=== PATIENT | female | born 1940 | race Caucasian/White ===

== ENCOUNTER 2019-06-15 12:21 | Inpatient (IN) | payer MEDICARE, OTHER, BC, SELFPAY ==
[2019-06-15] VITALS (14 sets, daily range): BP systolic 122–166; BP diastolic 59–82; PULSE 76–92; RESP 16–21; TEMP 36.6–36.8; O2SAT 93–98; BMI 23.6; BMI 22.2; BMI 22.3
--- NOTE | 2019-06-15 12:36 | RAD_ITS ---
STUDY: X-RAY CHEST REASON FOR EXAM: Female, 79 years old. RIGHT ARM WEAKNESS TECHNIQUE: AP COMPARISON: None. FINDINGS: EKG leads project over the chest. The lungs are clear and expanded. There is no demonstrated pleural abnormality. Normal size heart. Normal mediastinum and gwendolyn. Normal visualized pulmonary arteries. There is atherosclerotic calcification of the aortic arch with tortuosity. No acute bony process. There is no demonstrated abnormality of the visualized soft tissue structures of the upper abdomen. RAD/Chest 1 View IMPRESSION: Nonacute portable x-ray examination of the chest. Electronically Signed: Petr Jones MD (Brooks) at 13:58 EST , Service support ,
--- NOTE | 2019-06-15 12:36 | CT_ITS ---
STUDY: CT BRAIN WITHOUT CONTRAST REASON FOR EXAM: Female, 79 years old. Right hand numbness/tingling, right facial droop, hx migraines. RADIATION DOSAGE (If Supplied By Facility): CTDIvol = ( 44.99 ) mGy, DLP = ( 745.49 ) mGycm TECHNIQUE: Transaxial CT imaging of the brain was performed without administration of intravenous contrast material. Individualized dose optimization techniques were used for this CT. COMPARISON: No relevant priors. FINDINGS: Normal soft tissue structures. Normal calvarium. There is moderate cerebral atrophy with widening of the extra-axial spaces and ventricular dilatation. There are areas of decreased attenuation within the white matter tracts of the supratentorial brain, consistent with microvascular disease changes. There is low attenuation within the left greater than right anterior limb of the internal capsules and external capsules compatible chronic ischemic change. Normal brainstem. There is mild cerebellar atrophy. There is a septum cavum pellucida variant demonstrated. There is no intracranial hemorrhage. There are no findings of an acute ischemic infarction. Normal visualized paranasal sinuses. CT/Brain/Head without Contrast IMPRESSION: Atrophy areas of chronic involutional changes especially the basal ganglia. Could consider further evaluation with MRI if clinically appropriate. Electronically Signed: Vonda Dey MD at 13:49 EST Tel , Service support ,
--- NOTE | 2019-06-15 12:36 | EKG12_ITS ---
Test Reason : NEURO S/SX Blood Pressure : / mmHG Vent. Rate : 080 BPM Atrial Rate : 080 BPM P-R Int : 134 ms QRS Dur : 084 ms QT Int : 364 ms P-R-T Axes : 056 012 060 degrees QTc Int : 419 ms Normal sinus rhythm Nonspecific ST abnormality Abnormal ECG Confirmed by MARGARET BARILLAS, MARILYN ([id number]), news copy editor ANDREINA SHARMA ([id number]) on 06/18/2019 1:34:53 PM Referred By: GREG Confirmed By:MARILYN ROBLES MD
--- NOTE | 2019-06-15 12:40 | ED.DCSUM_ITS ---
History of Present Illness Chief Complaint: Numb/Ting Narrative: Patient presents the emergency department concern for stroke. Patient went to bed last night and believes she fell asleep around 1030 or 11:00. She was watching television in her room and is unsure of exactly when she fell asleep. When she woke up this morning around 6 she came down the stairs was in the kitchen and she noticed that her right hand had decreased sensation and was unable to grasp things. She states that she had difficulty walking as well. She notes that the weakness was not confined to just the hand but also extended up onto the arm. She notes she could not hold a coffee cup. Later in the morning she could not get herself ready after her shower with her arm. She called family around 830 and agreed to go to urgent care. She was referred here. She states that she is feeling much better now and the strength and sensation is back. He states that she is never had any symptoms like this before. She used to get some neurologic symptoms with migraines but has not had a migraine for years and currently does not have headache. Past Medical History - Allergies and Home Meds Allergies/Adverse Reactions: Allergies No Known Allergies Allergy (Verified 02/20/15 16:48) Primary Care Physician: [facility] Doctor,Out of [NON-STAFF] - Smoking Status: Never smoker Review of Systems General: Denies: Chills, Fever, Sweats Eyes: Denies: Visual changes - bilaterally, Diplopia ENT: Denies: Rhinorrhea, Sore throat Cardiovascular: Denies: Chest pain, Palpitations Respiratory: Denies: Dyspnea, Cough, Dyspnea on exertion Gastrointestinal: Denies: Abdominal pain, Nausea, Vomiting, Diarrhea, Melena, Hematochezia Genitourinary: Denies: Dysuria, Hematuria, Frequency Musculoskeletal: Denies: Back pain, Extremity Pain Skin: Denies: Rash, Wounds Neurological: Reports: Weakness, Parasthesia, Numbness. Denies: Headache Physical Exam Vital Signs/Narrative: Vital Signs Temp Pulse Resp BP Pulse Ox 06/15/19 12:23 98.1 F 84 18 166/82 H 98 Inital Vital Signs reviewed: Yes General: Well nourished, Well developed, No Acute Distress Head: Normocephalic, Atraumatic Eyes: Perrl, EOMI ENT: Moist mucous membranes, No rhinorrhea Neck: Supple, Nontender Cardiovascular: Regular rate, Regular rhythm, No murmurs Respiratory: No distress, CTA bilaterally, Chest nontender Abdomen: Soft, Nontender, Nondistended, Normal bowel sounds Back: Nontender, Normal Inspection Extremities: Nontender, No edema Skin: Normal color, No rash Neurological: Alert, Oriented x3, Cranial nerves II-XII grossly intact, Normal Strength, Normal Sensation, Normal Gait, - - NIH 0. Negative for: Weakness Psychological: Normal affect, Normal Mood Diagnostic/Tx/Re-eval - Rhythm Strip Rhythm Strip: Sinus Rhythm Rate: 80 - Medical Decision Making Basic labs were negative. Head CT shows no acute pathology. Chest x-ray negative. EKG is a normal sinus rhythm. Patient remains neurologically intact. Her NIH continues to be 0. At this point this most likely a TIA. However symptom onset is difficult to establish but we know that she had symptoms for several hours. ED Disposition - Plan for ED Patient: Disposition: Acute Care Hospital [facility] Diagnosis: TIA (transient ischemic attack) Referrals: [facility] Doctor,Out of [NON-STAFF] -
[2019-06-15 12:50] LABS: Absolute Lymphocyte Count 1.96 X10^3/uL (0.83-4.51); Absolute Neutrophil Count 4.2 X10^3/uL (2.0-7.7); Basophil# 0.06 X10^3/uL; Basophil% 0.9 % (0-1); Eosinophil# 0.03 X10^3/uL; Eosinophils% 0.4 % (0-5); Hematocrit 41.9 % (37-47); Hemoglobin 13.8 g/dL (12.0-15.0); Lymphocyte # 1.96 X10^3/ul (4.0); Lymphocyte % 28.2 % (19-41); Mean Corp Hgb Conc 32.9 g/dL (32-36); Mean Corpuscular Hgb 30.6 pg (27.0-32.0); Mean Corpuscular Volume 92.9 fL (81-99); Mean Platelet Vol. 11.5 fl (6.2-12.0); Monocyte# 0.66 X10^3/uL; Monocyte% 9.5 % (0-10); NRBC Flagged by Analyzer 0 % (0-5); Neutrophil # 4.23 X10^3/uL (2.7-7.7); Neutrophil % 60.7 % (47-70); Platelet Count 158 K/mm3 (150-450); RBC Distribution Width CV 12.8 % (11.6-14.6); RBC Distribution Width SD 43.8 fl (35.1-43.9); Red Blood Count 4.51 M/mm3 (4.2-5.4)
[2019-06-15 12:51] LABS: Bedside Glucose 96 mg/dL (70-110)
[2019-06-15 12:55] LABS: Prothrombin Time (Protime)PT. 12.7 SECONDS (11.7-14.9)
[2019-06-15 12:56] LABS: Partial Thromboplast Time 31.3 Seconds (24.1-36.2)
[2019-06-15 13:04] LABS: Anion Gap 4 (5-15); BUN 18 mg/dL (7-18); Calcium,Total 9.9 mg/dL (8.5-10.1); Chloride 105 mmol/L (98-107); Creatinine, Serum 0.95 mg/dL (0.55-1.02); EST Glomerular Filtration Rate 60 mL/min (>60); Est Glom Filt Rate - Afr Amer 73 mL/min (>60); Estimated Creatinine Clearance 35.05 ml/min; Glucose 87 mg/dL (74-106); Potassium 3.6 mmol/L (3.5-5.1); Sodium Level 140 mmol/L (136-145)
--- NOTE | 2019-06-15 14:36 | HP.PCM_ITS ---
<Travon Calix - Last Filed: 06/15/19 14:36> Problem List (1) CVA (cerebral vascular accident) Status: Acute (2) Depression Status: Chronic (3) Osteopenia Status: Chronic History of Present Illness Date of Admission: 06/15/19 Chief Complaint: right handed weakness/numbness The patient is a 79 year old F with pmhx of deperssion and osteopenia who presented to the ER with c/o right handed weakness. She woke up feeling normal at about 0600. At about 0800 she noticed that her right hand felt numb and weak. She was having trouble picking anything up in her right hand. She had some numbness and tingling. She denies difficulty ambulating, arm or leg weakness, denies slurred speech or facial droop. She went to urgent care but felt woozy walking in and instead came to the ER. Daughter noted that her gait seemed fine. She came to the ER and her symptoms have somewhat resolved although she says her fingertips still feel numb/tingling. She has no MERCHANT/dizziness/LH. She has no hx TIA/Stroke. 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 Lives: Alone Smoking Status: Never smoker Tobacco Use: Non-smoker Alcohol: None Drugs: None - *Family History Maternal History Items: Cancer - breast, colon Paternal History Items: No pertinent history - denies cad, cancer, DM, stroke Review of Systems Constitutional: Denies: Chills, Fever, Weight Change HEENT: Denies: Head Aches, Sinus Congestion, Sinus Drainage Cardiovascular: Denies: Chest Pain, Palpitations Respiratory: Denies: Cough, Shortness of breath at rest, Sputum production Gastrointestinal: Denies: Abdominal Pain, Nausea, Vomiting Genitourinary: Denies: Dysuria Musculoskeletal: Denies: Joint Pain, Joint Tenderness Skin: Denies: Rash, Wounds Neurological: Reports: Focal weakness, Numbness, Tingling. Denies: Balance problems, Double vision, Change in Speech, Slurred speech, Confusion, Headaches, Incoordination Psychiatric: Denies: Anxiety, Depression, Homicidal Ideations, Suicidal Ideations Hematologic/ Lymphatic: Denies: Easy Bruising, Easy Bleeding VTE Information - Inpt Only VTE Present on Admission: No VTE Mechan Device Prophylaxis: None VTE Pharm Prophylaxis ordered?: Yes Patient Problems: Active and Suspected Problems TIA (transient ischemic attack) (Acute) CVA (cerebral vascular accident) (Acute) - Physical Exam Vitals/I&O's: Vital Signs Temp Pulse Resp BP Pulse Ox 98.1 F 92 19 H 155/81 H 96 06/15/19 12:23 06/15/19 14:13 06/15/19 14:13 06/15/19 14:13 06/15/19 14:13 Oxygen Delivery Method Room Air Weight: 125 lb 0.034 oz Body Mass Index (BMI) 23.6 Finger Stick Blood Glucose 96 General: Alert, Oriented x3, Cooperative HEENT: Atraumatic, PERRLA, EOMI, Normocephalic Neck: Supple, No JVD, Negative Carotid Bruits Lungs: Clear to auscultation, Normal air movement Cardiovascular: Regular rate, No murmurs Abdomen: Bowel Sounds Present, Soft, Non Tender Extremities: No edema, Capillary Refill Less than 3 Seconds Skin: No rashes, No breakdown Musculoskeletal: No Tenderness to Palpation of Joints or Extremities Neurological: Cranial nerves II-XII grossly intact, - - Injection Molding Technician strength in the rigth hand is slightly diminished vs the left hand. normal pronator drift, point to point intact, rapid alternating movements intact, finger strength intact, graphesthesia intact, finger sensation intact. Psych/Mental Status: Normal Affect, Appropriate, Alert and oriented to time, place, person, mood and affect Laboratory Results 06/15/19 12:24: POC Glucose 96 06/15/19 12:25: WBC 7.0, RBC 4.51, Hgb 13.8, Hct 41.9, MCV 92.9, MCH 30.6, MCHC 32.9, RDW Std Deviation 43.8, RDW Coeff of Beto 12.8, Plt Count 158, MPV 11.5, Immature Gran % (Auto) 0.300, Neut % (Auto) 60.7, Lymph % (Auto) 28.2, [place] % (Auto) 9.5, Eos % (Auto) 0.4, Baso % (Auto) 0.9, Absolute Neuts (auto) 4.2, Absolute Lymphs (auto) 1.96, Nucleated RBC % 0 06/15/19 12:25: PT 12.7, INR 1.0, APTT 31.3 06/15/19 12:25: Sodium 140, Potassium 3.6, Chloride 105, Carbon Dioxide 31.0, Anion Gap 4 L, BUN 18, Creatinine 0.95, Estim Creat Clear Calc 35.05, Est GFR (MDRD) Af Amer 73, Est GFR (MDRD) Non-Af 60, BUN/Creatinine Ratio 19.0, Glucose 87, Calcium 9.9, Troponin I < 0.015 Assessment/Plan All Active Problems TIA (transient ischemic attack) (Acute) CVA (cerebral vascular accident) (Acute) 1. CVA - CT with age related changes. Onset about 0800. Start asa/statin. Obtain echo, MRI brain, MRA head/neck. Check FLP. Maintain on tele. PTOTST eavls. 2. HTN - permissive. not previously dx with htn. 3. Depression - continue home meds 4. Osteopenia - alendronate qweek DVT ppx: lovenox This patient was seen by Travon Calix PA-C under the supervision of Doctor Katherine. <Katherine,Hibbs - Last Filed: 06/15/19 15:51> History of Present Illness The patient is a 79 year old F [] Past Medical History Allergies No Known Allergies Allergy (Verified 02/20/15 16:48) - Physical Exam Vitals/I&O's: Vital Signs Temp Pulse Resp BP Pulse Ox 98 F 77 18 150/77 H 98 06/15/19 15:05 06/15/19 15:05 06/15/19 15:05 06/15/19 15:05 06/15/19 15:05 Oxygen Delivery Method Room Air Weight: 53.5 kg Body Mass Index (BMI) 22.2 Finger Stick Blood Glucose 96 Laboratory Results 06/15/19 12:24: POC Glucose 96 06/15/19 12:25: WBC 7.0, RBC 4.51, Hgb 13.8, Hct 41.9, MCV 92.9, MCH 30.6, MCHC 32.9, RDW Std Deviation 43.8, RDW Coeff of Beto 12.8, Plt Count 158, MPV 11.5, Immature Gran % (Auto) 0.300, Neut % (Auto) 60.7, Lymph % (Auto) 28.2, [place] % (Auto) 9.5, Eos % (Auto) 0.4, Baso % (Auto) 0.9, Absolute Neuts (auto) 4.2, Absolute Lymphs (auto) 1.96, Nucleated RBC % 0 06/15/19 12:25: PT 12.7, INR 1.0, APTT 31.3 06/15/19 12:25: Sodium 140, Potassium 3.6, Chloride 105, Carbon Dioxide 31.0, Anion Gap 4 L, BUN 18, Creatinine 0.95, Estim Creat Clear Calc 35.05, Est GFR (MDRD) Af Amer 73, Est GFR (MDRD) Non-Af 60, BUN/Creatinine Ratio 19.0, Glucose 87, Calcium 9.9, Troponin I < 0.015 Current Medications Acetaminophen (Tylenol) 650 mg PO Q6H PRN PRN PRN Reason: Pain Score 1-3/Temp > 100.7 F Aspirin (Aspirin, Baby) 81 mg PO DAILY@0800 [facility] Atorvastatin Calcium (Lipitor) 40 mg PO QHS [facility] Enoxaparin Sodium (Lovenox) 40 mg SC DAILY [facility] Famotidine (Pepcid) 20 mg PO DAILY [facility] Sodium Chloride () 1,000 mls @ 75 mls/hr IV .[id number] [facility] Stop: 06/16/19 04:14 Sodium Chloride () 250 mls @ 15 mls/hr IV .[id number] PRN PRN Reason: Saline Flush Sodium Chloride () 250 mls @ 15 mls/hr IV .[id number] PRN PRN Reason: Additional IVPB Infusion Magnesium Hydroxide (Milk Of Magnesia) 30 ml PO DAILY PRN PRN PRN Reason: Constipation Ondansetron HCl (Zofran) 4 mg IV Q8H PRN PRN PRN Reason: NAUSEA/VOMITING Sodium Chloride () 10 - 40 ml IV UD PRN PRN Reason: SALINE FLUSH Trazodone HCl (Desyrel) 50 mg PO QHS [facility] Venlafaxine HCl (Effexor Xr) 150 mg PO DAILY JAMIE Assessment/Plan This patient was seen in conjunction with KEVIN Washburn. I have independently interviewed and examined the patient and reviewed pertinent historical, laboratory, and other data. Please refer to KEVIN Washburn note for his patient's presentation, findings, and recommendations. I have reviewed and his note and concur with his documentation CC: Right-sided numbness and tingling especially RUE HPI: 79-year-old with past medical history of depression who comes in with complaints of right-sided numbness and tingling facial and upper extremity. Patient woke up around 6:00 and around 8:00 noticed weakness in the right side of the body. She was unable to use her right hand to prepare very fast. She called her daughter and was sent to urgent care and subsequently sent here. Initial CT scan showed chronic involutional changes. Symptoms appear to have resolved since patient got here to the emergency department. NIHSS score was 0 PMHX: Depression, osteoporosis PSHx: History of right ankle repair, tubal ligation FHX: Breast CA as well as colon CA in mother SHX: Denies any use of alcohol, non-smoker, denies any use of drugs Physical Exam: Vitals: Patient 98.1F, heart rate 84, blood pressure 136/82, SPO2 18, SPO2 was 90% on room air Gen: Comfortable, not pale, not jaundiced CVS:HS I +II, regular, no murmurs RESP: Clinically clear to auscultation GI: BS present and normal, soft, nontender, no palpable organs EXT:No edema Labs: CBCD and BMP is essentially unremarkable. Admitting chest x-ray is unremarkable ASSESSMENT: 1. TIA 2. Depression 3. Osteoporosis Plan: Admit to PCU, TIA/CVA protocol MRI/MRA head, MRA neck HbA1c, lipid profile, 2D echo Consider telemetry neurology consult if MRI of the brain is positive for acute CVA Code Visit Inpatient E&M: 38439 Init Hosp L3
--- NOTE | 2019-06-15 14:55 | ECHOD_ITS ---
Reason For Study: TIA/CVA Procedure This was a 2D Doppler, Color Flow transthoracic echocardiogram. Exam performed portable in patient room. Left Ventricle Normal LV size. Left ventricular systolic function is normal. The estimated ejection fraction is 60 %. Stage 1 diastolic dysfunction. No regional wall motion abnormalities noted. Right Ventricle Normal RV size. Normal systolic function. Atria Normal left atrium. Normal right atrium. Patent foramen ovale. Mitral Valve Normal mitral valve. Mild (1+) eccentric mitral valve insufficiency. Tricuspid Valve Normal tricuspid valve. Mild tricuspid valve insufficiency. Aortic Valve Normal aortic valve. Trisinus/trileaflet aortic valve. Mild (1+) aortic valve insufficiency. Pulmonic Valve Normal pulmonic valve. Great Vessels Normal aortic root. The pulmonary artery is normal size. Normal inferior vena cava. Pericardium/Pleural No pericardial effusion. Medication Performed a rapid injection of agitated mix of 9 cc saline and 1cc air to assess for atrial septal defect. MMode/2D Measurements & Calculations LVIDd: 3.7 cm IVSd: 0.97 cm Ao root diam: 3.5 cm LVIDs: 2.4 cm LVPWd: 1.1 cm RVDd: 3.0 cm FS: 35.5 % LAV(MOD-bp): 23.9 ml LA A4 area: 10.0 cm2 LA dimension(2D): 2.9 cm LAV(MOD-bp) Indexed: 15.7 ml/m2 LAV(MOD-sp2): 24.8 ml LAV(MOD-sp4): 20.7 ml RA A4 area: 9.3 cm2 Time Measurements MV dec time: 0.15 sec Doppler Measurements & Calculations MV E max nii: 45.8 cm/sec Lat Peak E' Nii: 4.3 cm/sec Med Peak E' Nii: 2.8 cm/sec MV A max nii: 100.2 cm/sec E/E' lat: 10.8 E/E' med: 16.1 MV E/A: 0.46 Ao V2 max: 107.6 cm/sec AI max nii: 443.2 cm/sec LV V1 max: 75.7 cm/sec Ao max P.6 mmHg AI max P.7 mmHg LV V1 max P.3 mmHg AI dec slope: 288.9 cm/sec2 AI P1/2t: 449.3 msec PA V2 max: 82.2 cm/sec TR max nii: 223.1 cm/sec TR max P.9 mmHg Interpretation Summary Normal LV size. Left ventricular systolic function is normal. The estimated ejection fraction is 60 %. Stage 1 diastolic dysfunction. Patent foramen ovale. Mild (1+) aortic valve insufficiency. Ordering Physician: Shirley Murphy Referring Physician: Chester Thayer Performed By: Carey Gonzalez, JOSSELINECS, RVT
[2019-06-15] MEDS: 0.9% Normal Saline 1,000 ML 75 ML IV (16:26)
[2019-06-15] MEDS: 0.9% Saline Lock 10 ML Syringe IV (16:32)
[2019-06-15 16:39] LABS: Hemoglobin A1c 5.5 % (4.2-6.3)
[2019-06-15] MEDS: Famotidine 20 MG Tablet PO (16:49)
[2019-06-16] VITALS (9 sets, daily range): BP systolic 129–135; BP diastolic 51–77; PULSE 79–96; RESP 16–17; TEMP 36.6–37.2; O2SAT 96–97; BMI 22.2
[2019-06-16 06:21] LABS: Absolute Lymphocyte Count 1.74 X10^3/uL (0.83-4.51); Absolute Neutrophil Count 3.2 X10^3/uL (2.0-7.7); Basophil# 0.05 X10^3/uL; Basophil% 0.9 % (0-1); Eosinophil# 0.12 X10^3/uL; Eosinophils% 2.1 % (0-5); Hematocrit 38.4 % (37-47); Hemoglobin 12.9 g/dL (12.0-15.0); Lymphocyte # 1.74 X10^3/ul (4.0); Lymphocyte % 31.1 % (19-41); Mean Corp Hgb Conc 33.6 g/dL (32-36); Mean Corpuscular Hgb 30.6 pg (27.0-32.0); Mean Corpuscular Volume 91.2 fL (81-99); Mean Platelet Vol. 11.2 fl (6.2-12.0); Monocyte# 0.52 X10^3/uL; Monocyte% 9.3 % (0-10); NRBC Flagged by Analyzer 0 % (0-5); Neutrophil # 3.15 X10^3/uL (2.7-7.7); Neutrophil % 56.4 % (47-70); Platelet Count 180 K/mm3 (150-450); RBC Distribution Width CV 12.8 % (11.6-14.6); RBC Distribution Width SD 42.2 fl (35.1-43.9); Red Blood Count 4.21 M/mm3 (4.2-5.4); White Blood Count 5.6 K/mm3 (4.4-11.0)
[2019-06-16 06:54] LABS: AST(SGOT) 18 U/L (15-37); Alanine Aminotransfer ALT/SGPT 20 U/L (13-56); Albumin, Serum 3.1 g/dL (3.2-5.0); Alkaline Phosphatase 62 U/L (45-117); Anion Gap 3 (5-15); BUN 16 mg/dL (7-18); BUN/Creat Ratio 20.1 RATIO (10-20); Calcium,Total 8.8 mg/dL (8.5-10.1); Chloride 112 mmol/L (98-107); Cholesterol 190 mg/dL (200); EST Glomerular Filtration Rate 74 mL/min (>60); Est Glom Filt Rate - Afr Amer 89 mL/min (>60); Estimated Creatinine Clearance 41.62 ml/min; Globulin 3.1 g/dL (2.2-4.2); Glucose 88 mg/dL (74-106); High Density Lipoprotein 65 mg/dL; Potassium 3.8 mmol/L (3.5-5.1); Protein, Total 6.2 g/dL (6.4-8.2); Sodium Level 141 mmol/L (136-145); Triglycerides 69 mg/dL; Very Low Density Lipoprotein 14 mg/dL (5-40)
--- NOTE | 2019-06-16 08:00 | MRI_ITS ---
STUDY: MRA NECK WITH AND WITHOUT CONTRAST REASON FOR EXAM: Female, 79 years old. tis, rt hand weakness/numbness TECHNIQUE: 3-D [id number]-[id number] (TOF) imaging was performed in an 1.5 T MRI scanner. IV Dotarem 11ml was administered for the contrast enhanced images. COMPARISON: None. FINDINGS: RIGHT CAROTID ARTERIES: Normal right common carotid artery (CCA). Normal right common carotid bulb. Normal origin of the right internal carotid (ICA) artery without a hemodynamically significant stenosis. Normal visualized cervical portion of the right internal carotid artery. Normal origin of the right external carotid artery (ECA). LEFT CAROTID ARTERIES: Normal left common carotid artery (CCA). Normal left common carotid bulb. Normal origin of the left internal carotid (ICA) artery without a hemodynamically significant stenosis. There is tortuous elongation of the cervical portion of the left internal carotid artery without apparent stenosis. Normal origin of the left external carotid artery (ECA). VERTEBRAL ARTERIES: Normal antegrade flow within the bilateral vertebral artery without a hemodynamically significant stenosis. MRI/MRA Neck WITH and W/O Contrast IMPRESSION: Left internal carotid artery is tortuous. Otherwise, normal bilateral cervical carotid and vertebral arteries. Electronically Signed: Cathi Fernandez, at 16:28 EST Tel , Service support ,
--- NOTE | 2019-06-16 08:00 | MRI_ITS ---
We are attempting to reach an attending provider to discuss findings. An addendum with communication details will be sent when the communication is complete. STUDY: MRI BRAIN WITHOUT CONTRAST REASON FOR EXAM: Female, 79 years old. tia, right hand weakness/numbness TECHNIQUE: Standardized multiplanar fat and water weighted pulse sequences were obtained. COMPARISON: None. FINDINGS: There are 2 adjacent foci of restricted diffusion in the left parietal lobe subcortical white matter measuring 2 to 3 mm. There is no large territory vascular infarct. There is moderate cerebral atrophy with widening of the extra-axial spaces and ventricular dilatation. There are multiple white matter hyperintensities, distributed throughout the deep white matter tracts of the cerebral hemispheres, consistent with moderate chronic white matter ischemic changes. Normal T2* images of the brain without demonstrated susceptibility artifact. There is no demonstrated hemosiderin stain. Normal bilateral basal ganglia. Normal thalami. There is no extra-axial fluid accumulation. Normal flow voids within the major intracranial circulation suggesting patency by spin echo criteria. Normal sella turcica, pituitary gland, infundibular stalk, optic chiasm and hypothalamus. Normal tectal plate and pineal gland. Normal midbrain, caludia and medulla. Normal cerebellum. Normal basal cisterns. Normal bilateral temporal bones. Normal bilateral internal auditory canals. No demonstrated orbital abnormality, within the constraints of a routine brain study. Normal visualized paranasal sinuses. Normal calvarium and skull base. Normal visualized soft tissue structures. Normal visualized upper cervical spine. MRI/Brain without Contrast IMPRESSION: 2 adjacent foci of acute infarct in the left parietal lobe subcortical white matter measuring 2 to 3 mm. There is no large territory vascular infarct. Chronic findings as described above. Electronically Signed: Cathi Fernandez, at 11:54 EST Tel , Service support ,
--- NOTE | 2019-06-16 08:00 | MRI_ITS ---
STUDY: MRA OF THE HEAD WITHOUT CONTRAST REASON FOR EXAM: Female, 79 years old. tia, rt hand numbness/weakness TECHNIQUE: 3-D vwtz-mz-sgzivf (TOF) imaging was performed with MIPs. The study was performed unenhanced. COMPARISON: None. FINDINGS: Normal bilateral petrous carotid arteries. Normal right cavernous carotid artery with a normal supraclinoid bifurcation. Normal left cavernous carotid artery with a normal supraclinoid bifurcation. Normal right A1 segments of the anterior cerebral artery. Normal left A1 segments of the anterior cerebral artery. Normal intact anterior communicating artery (ACOM). Normal bilateral A2 segments of the anterior cerebral arteries. Normal right M1 and M2 segments of the middle cerebral arteries, with a normal M1 bifurcation. Normal left M1 and M2 segments of the middle cerebral arteries, with a normal M1 bifurcation. 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 There is a persistent origin of the left posterior cerebral artery with absence of the P1 segment of the left posterior cerebral artery. Normal bilateral vertebral arteries. Normal basilar artery with a normal basilar bifurcation. The visualized bilateral superior cerebellar (SCA) arteries are normal. Normal bilateral visualized P3 segments of the posterior cerebral arteries. There is no demonstrated aneurysm of the [place]. There is no major vessel occlusion or hemodynamically significant stenosis. There is no demonstrated abnormality of the visualized brain. MRI/MRA Head ONLY without Contrast IMPRESSION: Normal MRA of the head Electronically Signed: Cathi Fernandez, at 16:22 EST Tel , Service support ,
[2019-06-16] MEDS: Venlafaxine XR 150 MG Capsule PO (09:54)
[2019-06-16] MEDS: Aspirin 81 MG TAB.CHEW PO (09:54)
[2019-06-16] MEDS: Famotidine 20 MG Tablet PO (09:54)
[2019-06-16] MEDS: Enoxaparin 40 MG/0.4 ML Syringe SC (09:56)
--- NOTE | 2019-06-16 10:33 | CASEMGMT ---
RN CM Assessment Introduced role of RN CM to patient and patient Dtr at bedside. (Dtr Trevin is at bedside-Per Dtr Tracy whom was entering room as CM exited and introduced self).? Patient is alert, oriented and able?to participate in RN CM Assessment. ?Care providers, pharmacy, and demographics verified. Presentation: Rt handed weakness Admit Dx: Tia/CVA Re-Admit: No Barriers/Issues: None, has 3 living Dtrs, 1 Dtr this past August- per Dtr Tracy. Good support system. PCP: Chester Thayer Specialists: None Preferred Pharmacy: [facility] Insurance: [employer], [employer] Rx Benefit:?Yes ?LNOK: Dtr Tracy José Miguelclementerobbi LW/HPOA: States has both, made aware not on file at [facility] and if brought in will place a copy on file. HPOA- Dtr Luz Abebejuan Living Arrangements:? Lives alone in a 2SH, 15 steps to enter home, Bedroom on upper level. ADL?s: Independent with ambulation and ADLs Transportation: Drives self, denies any transportation issues. DME: None HHC: None SNF: None Goal: Home and patient does not think will have any needs, states that she has been up walking and denies feeling weak or difficulties. Denies any issues, concerns, needs or questions with DC planning at this time. Aware CM remains available for any emerging needs. DC PLAN: Home with no anticipated needs identified at this time. CM to continue to follow for any additional needs-f/u PT/OT GILLES Wilkerson
--- NOTE | 2019-06-16 11:46 | PCM.DC ---
- Discharge Diagnoses Current Active Problems: Current Active and Chronic Problems TIA (transient ischemic attack) (Acute) CVA (cerebral vascular accident) (Acute) Depression (Chronic) Osteopenia (Chronic) You will use the following diet at home:: Cardiac Your food should be the consistency of: Regular Your liquids should be the consistency of: Regular/Thin Discharge Activity: Return to Normal Activity Allergies/Adverse Reactions: Allergies No Known Allergies Allergy (Verified 02/20/15 16:48) Medications to take at Discharge Alendronate Sodium 70 mg PO X1 06/15/19 B-12 2,500 mcg DAILY 06/15/19 Calcium Carb/Mag Ox/Zinc Sulf DAILY 06/15/19 Fish Oil 1,200 mg DAILY 06/15/19 Glucosamine Chondroitin Cap 06/15/19 Multivitamin DAILY 06/15/19 Venlafaxine HCl [Venlafaxine HCl ER] 150 mg PO DAILY 06/15/19 traZODone [Desyrel] 50 mg PO QHS 06/15/19 Acetaminophen [Tylenol Tablet] 650 mg PO Q6H PRN PRN tablet 06/16/19 Aspirin [Aspirin, Baby] 81 mg PO DAILY@0800 tab.chew 06/16/19 Atorvastatin Calcium [Lipitor] 40 mg PO QHS #30 tab 06/16/19 The following prescriptions were given: Atorvastatin Calcium [Lipitor] 40 mg PO QHS #30 tab Transmission Status: Pending to [facility] #[id number] Primary Care Physician: [facility] Doctor,Out of [NON-STAFF] - Please follow up with your Primary Care Physician in: 1-2 weeks Test Results: Test results from this visit will be discussed in further detail at your follow-up appointment, if applicable. Please Follow Up With: Chester Thayer MD Please Follow Up With: Gucci Queen MD - Neurology When: 4 weeks Proposed Discharge Date: 06/16/19
--- NOTE | 2019-06-16 12:47 | CASEMGMT ---
SOCIAL WORK PHQ9 COMPLETED WITH PATIENT D/T TIA. PATIENT SCORED 0. PATIENT REPORTS HISTORY OF DEPRESSION WHICH HAS BEEN MANAGED WITH MEDICATION FOR 15 YEARS. PATIENT VOICES NO CONCERNS. PLAN: RUDY CONWAY, CARD READER.
--- NOTE | 2019-06-16 13:02 | PHA.DC.MC ---
Pharmacy Service has performed discharge medication reconciliation and counseling for this patient. The patient's discharge medication list was reviewed for discrepancies and discrepancies were resolved. Home Medications Alendronate Sodium 70 mg PO X1 06/15/19 B-12 2,500 mcg DAILY 06/15/19 Calcium Carb/Mag Ox/Zinc Sulf DAILY 06/15/19 Fish Oil 1,200 mg DAILY 06/15/19 Glucosamine Chondroitin Cap 06/15/19 Multivitamin DAILY 06/15/19 Venlafaxine HCl [Venlafaxine HCl ER] 150 mg PO DAILY 06/15/19 traZODone [Desyrel] 50 mg PO QHS 06/15/19 Acetaminophen [Tylenol Tablet] 650 mg PO Q6H PRN PRN tab 06/16/19 Aspirin [Aspirin, Baby] 81 mg PO DAILY@0800 tab.chew 06/16/19 Atorvastatin Calcium [Lipitor] 40 mg PO QHS #30 tab 06/16/19 The patient was counseled on the following discharge medications and changes in medications for homegoing were reviewed. 1. LIPITOR The Reason for Use, instructions for use, and potential side effects were reviewed for all new medications. The patient's questions regarding all of their medications were answered. The patient was able to verbally demonstrate an understanding of their discharge medications.
[2019-06-16] MEDS: 0.9% Normal Saline 1,000 ML 75 ML IV (13:55)
[2019-06-16] MEDS: 0.9% Saline Lock 10 ML Syringe IV (13:58)
[2019-06-16 14:54] LABS: Magnesium 2.1 mg/dL (1.6-2.6); Thyroid Stim Hormone (TSH) 4.71 uIU/mL (0.358-3.74)
[2019-06-16 15:22] LABS: T4 Free Direct 1.07 ng/dL (0.76-1.46)
--- NOTE | 2019-06-16 16:12 | PCM.DC.SUM ---
Discharge Date and Diagnosis - Problem List Patient Problems: Active and Suspected Problems TIA (transient ischemic attack) (Acute) CVA (cerebral vascular accident) (Acute) Date of Admission: 06/15/19 Date of Discharge: 06/16/19 - Primary Discharge Diagnosis Active and Suspected Problems Acute ischemic left parietal infarct Patent foramen ovale HTN Depression Osteopenia - Secondary Discharge Diagnosis Chronic Problems Depression (Chronic) Osteopenia (Chronic) Hospital Course and Treatment Imaging Results: Diagnostics 06/16/19 08:00 Brain without Contrast [MRI] Stat MRA Head ONLY without Contrast [MRI] Routine MRA Neck WITH and W/O Contrast [MRI] Routine MRI/Brain without Contrast IMPRESSION: 2 adjacent foci of acute infarct in the left parietal lobe subcortical white matter measuring 2 to 3 mm. There is no large territory vascular infarct. Chronic findings as described above. CT/Brain/Head without Contrast IMPRESSION: Atrophy areas of chronic involutional changes especially the basal ganglia. Could consider further evaluation with MRI if clinically appropriate. RAD/Chest 1 View IMPRESSION: Nonacute portable x-ray examination of the chest. Echo: Interpretation Summary Normal LV size. Left ventricular systolic function is normal. The estimated ejection fraction is 60 %. Stage 1 diastolic dysfunction. Patent foramen ovale. Mild (1+) aortic valve insufficiency. MRA head and neck pending Consults: Teleneuro - SOC Operations: None Procedures: 2-D Echocardiogram Summary of Care Provided: Hospital Course: The patient is a 79 year old F with pmhx of migraines, depression and osteopenia who presented to the ER with c/o new onset RUE weakness, numbness and tingling. She woke up at about 0600 feeling normal. 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 She came to the ER and had negative CT brain, and her symptoms were much less prominent. She was outside the TPA window. She still had mild decreased sensation and weakness. She was admitted to PCU on tele for stroke work up. She had full resolution overnight. She was placed on aspirin and statin. The following day she had an MRI that did show a left parietal infarct. MRA head and neck negative. She had no deficits with therapy. Echo showed patent foramen ovale. Teleneuro recommended a aspirin, statin, cardiology consult, and a heart monitor. I arranged for her to follow up with cardiology for a possible loop recorder and for further evaluation of her PFO. I advised follow up with outpatient neuro in 1 month. She will need to follow up with her PCP in 1-2 weeks. She was discharged home in stable condition. This patient was seen by Travon Calix PA-C under the supervision of Doctor Ryann. [] Patient Problems: Active and Suspected Problems TIA (transient ischemic attack) (Acute) CVA (cerebral vascular accident) (Acute) - Physical Exam Vitals/I&O's: Vital Signs Temp Pulse Resp BP Pulse Ox 98.9 F 83 17 129/51 H 97 06/16/19 13:44 06/16/19 15:36 06/16/19 13:44 06/16/19 13:44 06/16/19 13:44 Oxygen Delivery Method Room Air Weight: 119 lb 0.794 oz Body Mass Index (BMI) 22.2 Finger Stick Blood Glucose 96 Intake and Output for Last 24 Hours 06/14/19 06/15/19 06/16/19 23:59 23:59 23:59 Intake Total 1066.25 / 1066.25 1153.75 / 1153.75 Balance 1066.25 / 1066.25 1153.75 / 1153.75 General: Alert, Oriented x3, Cooperative HEENT: Atraumatic, PERRLA, EOMI, Normocephalic Neck: Supple, No JVD, Negative Carotid Bruits Lungs: Clear to auscultation, Normal air movement Cardiovascular: Regular rate, No murmurs Abdomen: Bowel Sounds Present, Soft, Non Tender Extremities: No edema, Capillary Refill Less than 3 Seconds Skin: No rashes, No breakdown Musculoskeletal: No Tenderness to Palpation of Joints or Extremities Neurological: Cranial nerves II-XII grossly intact Psych/Mental Status: Normal Affect, Appropriate, Alert and oriented to time, place, person, mood and affect Laboratory Results 06/15/19 15:30: Troponin I < 0.015 06/15/19 15:30: Hemoglobin A1c 5.5 06/16/19 06:11: WBC 5.6, RBC 4.21, Hgb 12.9, Hct 38.4, MCV 91.2, MCH 30.6, MCHC 33.6, RDW Std Deviation 42.2, RDW Coeff of Beto 12.8, Plt Count 180, MPV 11.2, Immature Gran % (Auto) 0.200, Neut % (Auto) 56.4, Lymph % (Auto) 31.1, Hartley % (Auto) 9.3, Eos % (Auto) 2.1, Baso % (Auto) 0.9, Absolute Neuts (auto) 3.2, Absolute Lymphs (auto) 1.74, Nucleated RBC % 0 06/16/19 06:11: Sodium 141, Potassium 3.8, Chloride 112 H, Carbon Dioxide 26.0, Anion Gap 3 L, BUN 16, Creatinine 0.80, Estim Creat Clear Calc 41.62, Est GFR (MDRD) Af Amer 89, Est GFR (MDRD) Non-Af 74, BUN/Creatinine Ratio 20.1 H, Glucose 88, Calcium 8.8, Total Bilirubin 0.40, AST 18, ALT 20, Alkaline Phosphatase 62, Total Protein 6.2 L, Albumin 3.1 L, Globulin 3.1, Albumin/Globulin Ratio 1.0, Triglycerides 69, Cholesterol 190, LDL Cholesterol 111, VLDL Cholesterol 14, HDL Cholesterol 65 06/16/19 06:11: Magnesium 2.1, TSH 4.71 H 06/16/19 06:11: Free T4 1.07 Current Medications Acetaminophen (Tylenol) 650 mg PO Q6H PRN PRN PRN Reason: Pain Score 1-3/Temp > 100.7 F Aspirin (Aspirin, Baby) 81 mg PO DAILY@0800 [facility] Last Admin: 06/16/19 09:54 Dose: 81 mg Documented by: Atorvastatin Calcium (Lipitor) 40 mg PO QHS [facility] Last Admin: 06/15/19 22:39 Dose: Not Given Documented by: Enoxaparin Sodium (Lovenox) 40 mg SC DAILY [facility] Last Admin: 06/16/19 09:56 Dose: 40 mg Documented by: Famotidine (Pepcid) 20 mg PO DAILY [facility] Last Admin: 06/16/19 09:54 Dose: 20 mg Documented by: Sodium Chloride () 250 mls @ 15 mls/hr IV .[id number] PRN PRN Reason: Saline Flush Sodium Chloride () 250 mls @ 15 mls/hr IV .[id number] PRN PRN Reason: Additional IVPB Infusion Sodium Chloride () 1,000 mls @ 75 mls/hr IV .[id number] [facility] Last Admin: 06/16/19 13:55 Dose: 75 mls/hr Documented by: Magnesium Hydroxide (Milk Of Magnesia) 30 ml PO DAILY PRN PRN PRN Reason: Constipation Ondansetron HCl (Zofran) 4 mg IV Q8H PRN PRN PRN Reason: NAUSEA/VOMITING Sodium Chloride () 10 - 40 ml IV UD PRN PRN Reason: SALINE FLUSH Last Admin: 06/16/19 13:58 Dose: 10 ml Documented by: Trazodone HCl (Desyrel) 50 mg PO QHS [facility] Last Admin: 06/15/19 22:39 Dose: Not Given Documented by: Venlafaxine HCl (Effexor Xr) 150 mg PO DAILY [facility] Last Admin: 06/16/19 09:54 Dose: 150 mg Documented by: Discharge Diet: Low fat/ Low Cholesterol, 2000 mg Sodium Diet Discharge Activity: Return to Normal Activity Home Medications: Medications to take at Discharge Alendronate Sodium 70 mg PO X1 06/15/19 B-12 2,500 mcg DAILY 06/15/19 Calcium Carb/Mag Ox/Zinc Sulf DAILY 06/15/19 Fish Oil 1,200 mg DAILY 06/15/19 Glucosamine Chondroitin Cap 06/15/19 Multivitamin DAILY 06/15/19 Venlafaxine HCl [Venlafaxine HCl ER] 150 mg PO DAILY 06/15/19 traZODone [Desyrel] 50 mg PO QHS 06/15/19 Acetaminophen [Tylenol Tablet] 650 mg PO Q6H PRN PRN tab 06/16/19 Aspirin [Aspirin, Baby] 81 mg PO DAILY@0800 tab.chew 06/16/19 Atorvastatin Calcium [Lipitor] 40 mg PO QHS #30 tab 06/16/19 Following Prescrptions Were Given to Patient: Atorvastatin Calcium [Lipitor] 40 mg PO QHS #30 tab Transmission Status: Received by [facility] #44 Primary Care Physician: Sharonda Doctor,Out of [NON-STAFF] - Please follow up with your Primary Care Physician in: 1-2 weeks Please Follow Up With: Chester Thayer MD Please Follow Up With: Gucci Queen MD - Neurology When: 4 weeks Please Follow Up With: Usman Rosas MD When: 2 weeks Disposition: Home Minutes spent on discharge:: 35 Patient Condition:: Stable Medical Necessity - Tobacco Use Smoking Status: Never smoker Tobacco Use: Non-smoker Meaningful Use Info Meaningful Use Diagnoses (Choose all that apply): None applicable
--- NOTE | 2019-06-16 17:29 | PCM.CONS.C ---
Reason for Consult Date of Consultation: 06/16/19 History of Present Illness: The patient is a 79 year old F with history of depression and osteopenia who presented to the ER with c/o right handed weakness. She woke up feeling normal at about 0600. At about 0800 she noticed that her right hand felt numb and weak. She was having trouble picking anything up in her right hand. She had some numbness and tingling. She denies difficulty ambulating, arm or leg weakness, denies slurred speech or facial droop. She went to urgent care but felt woozy walking in and instead came to the ER. Daughter noted that her gait seemed fine. She came to the ER and her symptoms have somewhat resolved although she says her fingertips still feel numb/tingling. She has no MERCHANT/dizziness/LH. In the hospital she had an echo and was diagnosed with a PFO and cardiology was consulted Past Medical History Allergies/Adverse Reactions: Allergies No Known Allergies Allergy (Verified 02/20/15 16:48) Home Medications: Ambulatory Orders Medication Instructions Recorded Alendronate Sodium 70 mg PO X1 06/15/19 B-12 2,500 mcg DAILY 06/15/19 Calcium Carb/Mag Ox/Zinc Sulf DAILY 06/15/19 Fish Oil 1,200 mg DAILY 06/15/19 Glucosamine Chondroitin Cap 06/15/19 Multivitamin DAILY 06/15/19 Venlafaxine HCl [Venlafaxine HCl 150 mg PO DAILY 06/15/19 ER] traZODone [Desyrel] 50 mg PO QHS 06/15/19 Acetaminophen [Tylenol Tablet] 650 mg PO Q6H PRN PRN tab 06/16/19 Aspirin [Aspirin, Baby] 81 mg PO DAILY@0800 tab.chew 06/16/19 Atorvastatin Calcium [Lipitor] 40 mg PO QHS #30 tab 06/16/19 Past Medical History (Chronic Problems): Chronic Problems Depression (Chronic) Osteopenia (Chronic) Surgical History: - - ankle repair, tubal Psychiatric History: Depression [facility] History: No pertinent [facility] history - *Family History Maternal History Items: Cancer - breast, colon Paternal History Items: No pertinent history - denies cad, cancer, DM, stroke Lives: Alone Smoking Status: Never smoker Tobacco Use: Non-smoker Alcohol: None Drugs: None Review of Systems - Review of Systems General: Denies: Fever, Night Sweats, Fatigue HEENT: Denies: Vision Change Cardiovascular: Denies: Chest Discomfort, Shortness of Breath, Orthopnea, PND, Peripheral Edema, Palpitations, Lightheadedness, Dizziness, Near Syncope, Syncope Respiratory: Denies: Cough, Sputum Production, Hemoptysis Gastrointestinal: Denies: Hematemesis, Hematochezia, Melena Genitourinary: Denies: Dysuria, Hematuria Muscoloskeletal: Denies: Myalgias Skin: Denies: Rash Neurological: Reports: Dizziness Psychiatric: Denies: Anxiety Endocrine: Denies: Heat Intolerance Subjectve: pleasant lady in no distress Objective: Vital Signs Temp Pulse Resp BP Pulse Ox 98.9 F 83 17 129/51 H 97 06/16/19 13:44 06/16/19 15:36 06/16/19 13:44 06/16/19 13:44 06/16/19 13:44 Oxygen Delivery Method Room Air Weight: 119 lb 0.794 oz Body Mass Index (BMI) 22.2 Finger Stick Blood Glucose 96 Intake and Output for Last 24 Hours 06/14/19 06/15/19 06/16/19 23:59 23:59 23:59 Intake Total 1066.25 / 1066.25 1153.75 / 1153.75 Balance 1066.25 / 1066.25 1153.75 / 1153.75 General: Awake, Alert, Oriented x 3 HEENT: PERRL, EOMI, Sclera Non Icteric Neck: Supple, Good ROM, No Lymph Node Enlargement Lungs: Clear to auscultation Cardiovascular: Regular Rhythm, Normal S1, Normal S2, No Murmurs, No Rubs, No Gallops Vascular: No Carotid Bruits, Normal Femoral Pulses, Normal Radial Pulses, Normal Dorsalis Pedal Pulse, Normal Posterior Tibial Pulses Abdomen: Bowel Sounds Present, Soft, Non Tender, No HSM, No Organomegaly Extremities: No Cyanosis, No Clubbing, No edema Musculoskeletal: No Erythema Skin: No Rashes Lymphatic: No Lymph Node Enlargement Neurological: No Focal Motor or Sensory Deficit Psych/Mental Status: Appropriate 06/16/19 06:11: WBC 5.6, RBC 4.21, Hgb 12.9, Hct 38.4, MCV 91.2, MCH 30.6, MCHC 33.6, Plt Count 180, MPV 11.2, Immature Gran % (Auto) 0.200, Neut % (Auto) 56.4, Lymph % (Auto) 31.1, Atkinson % (Auto) 9.3, Eos % (Auto) 2.1, Baso % (Auto) 0.9, Absolute Neuts (auto) 3.2, Nucleated RBC % 0 06/16/19 06:11: Sodium 141, Potassium 3.8, Chloride 112 H, Carbon Dioxide 26.0, Anion Gap 3 L, BUN 16, Creatinine 0.80, Est GFR (MDRD) Af Amer 89, Est GFR (MDRD) Non-Af 74, BUN/Creatinine Ratio 20.1 H, Glucose 88, Calcium 8.8, Total Bilirubin 0.40, Triglycerides 69, Cholesterol 190, LDL Cholesterol 111, VLDL Cholesterol 14, HDL Cholesterol 65 06/16/19 06:11: Magnesium 2.1 Rhythm: EKG: ECHO: Stress Test: Cardiac Cath: PCI: CT Surgery: Holter monitor: EPS: PPM: CXR: Chest CT Scan: Assessment/Plan 1. S/P TIA Patient was noted to have a possible transient ischemic attack with a PFO noted on an echocardiogram. At this particular time I would recommend that the patient continue with her aspirin and after she is discharged as an outpatient we may consider a 30-day event monitor or an implantable loop recorder. I would not recommend any anticoagulation at this particular time. We will follow-up in the office. Thank you for allowing me to participate in her care.
== END 2019-06-16 17:43 | disposition home or self-care (01) | DRG 65 ==
LOC: ED 14:09 → PCU 14:18
PROVIDERS: Admitting Provider Internal Medicine; Emergency Provider Emergency Medicine; PCP Family Medicine; Visit Provider Family Medicine
DX: I63.9 Cerebral infarction, unspecified (principal); Q21.1 Atrial septal defect; I10 Essential (primary) hypertension; G83.21 Monoplegia of upper limb affecting right dominant side; R29.700 NIHSS score 0; F32.9 Major depressive disorder, single episode, unspecified; F41.9 Anxiety disorder, unspecified; M85.80 Other specified disorders of bone density and structure, unspecified site; Z79.899 Other long term (current) drug therapy
CPT/HCPCS: 36415; 70450; 70544; 70549; 70551; 71045; 80048; 80053; 80061; 82962; 83036; 83735; 84439; 84443; 84484; 85025; 85610; 85730; 92523; 93005; 93306; 94762; 97161; 97166; 99285; A9575; J7030; A4216

== ENCOUNTER → 2022-12-18 | Outpatient (CLI) | payer MEDICARE, OTHER, BC, SELFPAY ==
--- NOTE | 2022-12-18 13:21 | MRI_ITS ---
HISTORY: MEMORY LOSS, HX TIA. TECHNIQUE: Multiplanar and multisequence MR images of the brain were obtained without contrast. 285 images. COMPARISON: 11/15/2019. FINDINGS: BRAIN PARENCHYMA: Multiple foci and zones of increased T2 FLAIR signal in the bilateral cerebral white matter and claudia again seen. No abnormal focus of restricted diffusion. No acute intracranial hemorrhage identified. CSF SPACES: Moderate generalized volume loss with a cavum septum pellucidum noted. No significant midline shift or other mass effect.No extra-axial fluid collection. VASCULAR SYSTEM: Major intracranial flow voids are maintained. PARANASAL SINUSES AND MASTOID AIR CELLS: No significant air fluid levels. ORBITS: Bilateral lens resections. MRI/Brain without Contrast IMPRESSION: No evidence for acute infarct. Moderate chronic involutional and white matter changes. Electronically Signed: Donita Lam MD at 11:32 EDT ,
[2022-12-18 15:54] LABS: Vitamin B12 687 pg/mL (211-911)
[2022-12-18 16:27] LABS: Thyroid Stim Hormone (TSH) 4.56 uIU/mL (0.358-3.74)
== END | disposition home or self-care (01) ==
PROVIDERS: PCP Family Medicine
DX: R41.3 Other amnesia (principal); Z86.73 Personal history of transient ischemic attack (TIA), and cerebral infarction without residual deficits
CPT/HCPCS: 36415; 70551; 82607; 82746; 84443

== ENCOUNTER 2023-06-14 10:17 | Emergency (ER) | payer MEDICARE, OTHER, BC, SELFPAY ==
[2023-06-14 10:18] VITALS: BP 123/71; PULSE 104; RESP 16; TEMP 36.2; O2SAT 99
--- NOTE | 2023-06-14 10:20 | EX.ED.DYSGE1 ---
HPI History of Present Illness Chief Complaint: Weakness [facility] Medical History (Updated 06/14/23 @ 13:[address] 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 Patent foramen ovale (06/16/19) Polyarthritis Subclinical hypothyroidism TIA (transient ischemic attack) Home Medications Calcium Carb/Mag Ox/Zinc Sulf DAILY supplement 06/15/19 [History Last Taken 06/15/19] trazodone 50 mg tablet 50 mg PO QHS sleep 06/15/19 [History Last Taken 06/14/19] venlafaxine 150 mg capsule,extended release 24 hr 150 mg PO DAILY mood 06/15/19 [History Last Taken 06/15/19] acetaminophen 325 mg tablet 650 mg (2 x 325 mg) PO Q6H PRN PRN Pain Score 1-3/Temp > 100.7 F 06/16/19 [Rx Last Taken Unknown] aspirin 81 mg chewable tablet 81 mg PO DAILY@0800 06/16/19 [Rx Last Taken Unknown] atorvastatin 40 mg tablet 40 mg PO QHS #30 tabs 06/16/19 [Rx Last Taken Unknown] alendronate 70 mg tablet 70 mg PO QWEEK osteoporosis 07/03/19 [History Last Taken Unknown] antiarthritic combination no.2 900 mg tablet (glucosamine-chondroitin) mg PO 07/03/19 [History Last Taken Unknown] cyanocobalamin (vitamin B-12) 2,500 mcg tablet 2,500 mcg PO DAILY 07/03/19 [History Last Taken Unknown] multivitamin 1 tab PO DAILY 07/03/19 [History Last Taken Unknown] omega-3 fatty acids 1,000 mg capsule (Fish Oil Concentrate) 1,000 mg PO DAILY 07/03/19 [History Last Taken Unknown] ondansetron 4 mg disintegrating tablet 4 mg PO Q8H PRN PRN Nausea #10 tabs 06/14/23 [Rx Last Taken Unknown] Allergy/AdvReac Type Severity Reaction Status Date / Time No Known Allergies Allergy Verified 06/14/23 10:31 Family History Mother Colon cancer Breast cancer Sister Cancer leukemia Sister Lupus Breast cancer Sister Cancer esphagus Sister Cancer Myocardial infarction Brother Heart disease Brother Heart disease Surgical History History of ankle surgery History of colonoscopy History of lumpectomy History of tubal ligation Social History Smoking Status: Never smoker alcohol intake: current alcohol intake frequency: holidays/special occasions only substance use type: does not use caffeine: Yes Type: coffee Number of servings: 2 EXAM Physical Exam Const Vital Signs: 06/14/23 10:18 06/14/23 10:29 Temperature 97.2 F L Temperature Source Temporal Pulse Rate 104 H Respiratory Rate 16 Respiratory Effort Normal Respiratory Pattern Normal Blood Pressure 123/71 H Blood Pressure Mean 88 Pulse Ox 99 Oxygen Delivery Method Room Air MDM MDM MDM Narrative Medical decision making narrative: HISTORY OF PRESENT ILLNESS: 83-year-old female presents with diffuse weakness. States she been having nausea and vomiting. States she was seen in outside ED yesterday and was sent home with Teja. She further states she is feeling diffusely weak. Notes yesterday she was experiencing dizziness nausea and vomiting. States she felt little nauseous this morning but has not vomited. She denies any focal weakness. Denies any chest pain. Denies any shortness of breath or cough. Denies any sick contacts. Denies any lower extreme edema. Denies any urinary complaints. REVIEW OF SYSTEMS: Pertinent positives: Weakness, Pertinent negatives: Focal weakness, slurred speech, vomiting, abdominal pain, chest pain, palpitations, cough, fever PHYSICAL EXAM: Nursing triage notes reviewed, Vital signs reviewed Constitutional: please see mdm HENT: MMM Eyes: Pupils equal round and reactive to light, Extraocular muscles intact Neck: No stridor, no JVD, full neck ROM Lungs: Clear to auscultation, No wheezing or rales. No increased work of breathing, no conversational dyspnea, no accessory muscle use, no nasal flaring. No respiratory distress noted Heart: Regular rate and rhythm, No murmurs, No rubs and No gallops, 2+ distal pulses (radial, femoral, posterior tibial) in all extremities Abdomen: Soft, there is no tenderness, rigidity, rebound or guarding, no obvious peritoneal signs, no palpable pulsatile abdominal masses, no auscultated abdominal bruit : No CVAT Extremities: No edema Neuro: Alert and oriented x3, neuro exam at baseline, cranial nerves II through XII are intact. No pain with extraocular muscle movement. There is negative test of skew. 5 of 5 strength in upper and lower extremities in flexion extension. Intact sensation to light touch in upper and lower extremity dermatomes. No truncal or extremity ataxia. No dysdiadochokinesia. . 2+ reflexes in upper and lower extremities. No meningeal signs. Negative Babinski. NIH of 0. Skin: No rash or lesions noted MEDICAL DECISION MAKING: Chief Complaint: Weakness External records reviewed: Clinisync reviewed: Presented to outside ED yesterday for dizziness nausea and vomiting discharged home with meclizine and Zofran CT scan of the head shows no acute intracranial hemorrhage or mass effect Chest x-ray from yesterday shows no acute process COVID, RSV, flu negative High-sensitivity troponin negative x 2 CMP without evidence of acute kidney injury, significant electrolyte abnormality, anion gap, no evidence hepatobiliary pathology. Urinalysis shows no evidence of urinary inflammation suggestive of UTI Factors affecting care: CVA, hyperlipidemia Social determinants of health: n elderly History obtained from others: The patient's daughter Consults: none MDM Narrative: Patient was initially hemodynamically stable, afebrile, nontoxic-appearing. There are no focal neurologic deficits on initial exam I considered the following differential diagnosis: CVA, large vessel occlusion, anemia, electrolyte disturbance, metabolic encephalopathy ALL IMAGES (IF OBTAINED) HAVE BEEN PERSONALLY REVIEWED AND INTERPRETED BY MYSELF. EKG with normal sinus rhythm, normal axis, no intervals, no STEMI CT of the head neck shows no evidence of large vessel occlusion, acute intracranial normality CBC without leukocytosis, severe anemia, no thrombocytopenia. Urinalysis shows no evidence of urinary inflammation suggestive of UTI CMP without evidence of acute kidney injury, significant electrolyte abnormality, anion gap, no evidence hepatobiliary pathology. Lipase is wnl indicating no pancreatic inflammation. High-sensitivity troponin is negative, no evidence of myocardial ischemia The synthesis of the patient's history, physical exam, labs images suggest no acute life-limiting etiology. The patient ambulated well here. No inidcation for admission at this time. Patient is appropriate discharge home. Social work resources were given to the patient prior to discharge to assess the patient could benefit from outpatient evaluation for home health versus group home. I did offer the patient admission for nurse complaints today however she vehemently refused staying in the hospital because she did not want to be admitted to group home at this time. The patient and/or family, caregivers express understanding. The patient and/or family, caregivers agrees with the plan. Shared decision making: I will have a discussion with the patient and or visitors regarding risk/benefits of further testing or admission. They will be made aware of of the risk/benefits inherent in this decision they will be given the opportunity to voice understanding. Total critical care time today provided was at least 0 minutes. This excludes separately billable procedures. Critical care time (if documented) is secondary to the patient having high probability of clinically significant/life threatening deterioration in the patient's condition which required my urgent intervention. Impression: 1. Weakness 2. Difficulty ambulating (resolved) Dispo: Discharge Lab Data Labs: Laboratory Results - last 24 hr 06/14/23 06/14/23 10:59 12:27 WBC 6.5 RBC 4.59 Hgb 13.7 Hct 41.5 MCV 90.4 MCH 29.8 MCHC 33.0 RDW Std Deviation 45.3 H RDW Coeff of [place] 13.8 Plt Count 239 MPV 10.9 Immature Gran % (Auto) 0.500 Neut % (Auto) 64.3 Lymph % (Auto) 23.6 [place] % (Auto) 9.0 Eos % (Auto) 1.4 Baso % (Auto) 1.2 H Absolute Neuts (auto) 4.2 Absolute Lymphs (auto) 1.53 Nucleated RBC % 0 Sodium 143 Potassium 3.5 Chloride 111 H Carbon Dioxide 26.0 Anion Gap 6 BUN 18 Creatinine 0.99 Estim Creat Clear Calc 32.86 Est GFR (MDRD) Af Amer 69 Est GFR (MDRD) Non-Af 57 L BUN/Creatinine Ratio 18.2 Glucose 93 Calcium 9.6 Total Bilirubin 0.50 AST 16 ALT 20 Alkaline Phosphatase 106 Troponin I High Sens 13 Total Protein 6.7 Albumin 3.4 Globulin 3.3 Albumin/Globulin Ratio 1.0 Lipase 77 H Urine Color Straw Urine Clarity Clear Urine pH 7.0 Ur Specific [place] 1.005 Urine Protein Negative Urine Glucose (UA) Normal Urine Ketones Negative Urine Occult Blood Negative Urine Nitrite Negative Urine Bilirubin Negative Urine Urobilinogen Normal Ur Leukocyte Esterase Negative Urine RBC 0 SEEN Urine WBC 0 SEEN Ur Squamous Epith Cells 0-5 SEEN Urine Bacteria 0 SEEN Urine Mucus 0 SEEN Radiography Diagnostic Testing: Clinical Impression(s) from Imaging Studies Chest X-Ray 06/14/23 11:19 IMPRESSION: No radiographic evidence of acute cardiopulmonary disease. Electronically Signed: Javier Almonte MD at 11:34 EST Reading Location ID and State: [facility] / [place] Tel , Service support , Head/Neck CTA 06/14/23 12:05 IMPRESSION: 1. No acute intracranial process. 2. Chronic involutional changes of the brain. 3. 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 Otherwise no intracranial great vessel stenosis is seen. 3. Tortuous proximal common carotid arteries without significant stenosis. 4. Unremarkable internal carotid arteries bilaterally. 5. Patent bilateral vertebral arteries without significant stenosis. 6. Moderate stenosis at the origin of the left external carotid artery. Electronically Signed: Javier Almonte MD at 13:11 EST Reading Location ID and State: [email or web address] / [place] Tel , Service support , ADDENDUM: 06/14/23 1328 IMPRESSION: 1. No acute intracranial process. 2. Chronic involutional changes of the brain. 3. 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 Otherwise no intracranial great vessel stenosis is seen. 3. Tortuous proximal common carotid arteries without significant stenosis. 4. Unremarkable internal carotid arteries bilaterally. 5. Patent bilateral vertebral arteries without significant stenosis. 6. Moderate stenosis at the origin of the left external carotid artery. Electronically Signed: Javier Almonte MD at 13:11 EST Reading Location ID and State: [email or web address] / [place] Tel , Service support , Discharge Plan Triage Chief Complaint: Weakness ED Provider: Toby Grigsby Dx/Rx/DC Orders Clinical Impression: Weakness Prescriptions: New ondansetron 4 mg tablet,disintegrating 4 mg PO Q8H PRN PRN (Reason: Nausea) Qty: 10 0RF No Action cyanocobalamin (vitamin B-12) 2,500 mcg tablet 2,500 mcg PO DAILY omega-3 fatty acids [Fish Oil Concentrate] 1,000 mg capsule 1,000 mg PO DAILY glucosamine-chondroitin 900 mg tablet PO multivitamin Tablet 1 tab PO DAILY venlafaxine 150 MG capsule,extended release 24hr 150 mg PO DAILY Patient Comments: TAKE 1 CAPSULE BY MOUTH EVERY DAY trazodone 50 MG tablet 50 mg PO QHS Calcium Carb/Mag Ox/Zinc Sulf DAILY atorvastatin 40 MG tablet 40 mg PO QHS Qty: 30 0RF acetaminophen 325 MG tablet 650 mg PO Q6H PRN PRN (Reason: Pain Score 1-3/Temp > 100.7 F) 0RF aspirin 81 MG tablet,chewable 81 mg PO DAILY@0800 0RF alendronate 70 mg tablet 70 mg PO QWEEK Patient Comments: TAKE 1 TABLET BY MOUTH EVERY 7 DAYS with EIGHT ounces of water. Remainin a seated or standing position for at least 30 minutes after taking Primary Care Provider: Chester Thayer Referrals: Chester Thayer MD [Primary Care Provider] - Activity Restrictions/Additional Instructions: Thank you for trusting us with your care today! Please take Tylenol (2 pills, 650 mg), ibuprofen (2 pills, 400 mg) every 6 hours as needed for pain and fever control. Please return to the emergency department if your symptoms change or worsen. Please follow with your primary care physician for further outpatient evaluation and management. Disposition Disposition: Home, Self Care
[2023-06-14 11:07] LABS: Absolute Lymphocyte Count 1.53 X10^3/uL (0.83-4.51); Absolute Neutrophil Count 4.2 X10^3/uL (2.0-7.7); Basophil# 0.08 X10^3/uL; Basophil% 1.2 % (0-1); Eosinophil# 0.09 X10^3/uL; Eosinophils% 1.4 % (0-5); Hematocrit 41.5 % (37-47); Hemoglobin 13.7 g/dL (12.0-15.0); Lymphocyte # 1.53 X10^3/ul (0.83-4.51); Lymphocyte % 23.6 % (19-41); Mean Corpuscular Hgb 29.8 pg (27.0-32.0); Mean Corpuscular Volume 90.4 fL (81-99); Mean Platelet Vol. 10.9 fl (6.2-12.0); Monocyte# 0.58 X10^3/uL; NRBC Flagged by Analyzer 0 % (0-5); Neutrophil # 4.16 X10^3/uL (2.7-7.7); Neutrophil % 64.3 % (47-70); Platelet Count 239 K/mm3 (150-450); RBC Distribution Width CV 13.8 % (11.6-14.6); RBC Distribution Width SD 45.3 fl (35.1-43.9); Red Blood Count 4.59 M/mm3 (4.2-5.4); White Blood Count 6.5 K/mm3 (4.4-11.0)
[2023-06-14 11:09] VITALS: BMI 23.8
--- OUTSIDE RECORDS SUMMARY | 2023-06-14 11:09 | XMS RPT_ITS | CCD ---
Author Name Unknown Address [email or web address] [facility] [address] [place] [address] Organization [facility] Care Team Providers Care Director Translational Name Role Phone Shahla Thayer Unavailable Unavailable Shahla Thayer Unavailable Unavailable Pearl Salinas Unavailable Unavailable Shahla Thayer Unavailable Unavailable Unavailable Shahla Thayer MD Primary Care Provider Shahla Thayer Unavailable [phone] Katherine Estrada Unavailable Unavailable Shahla Thayer MD Primary Care Provider SHAHLA THAYER Primary Care Unavailable KATHERINE TORRES Attending Unavailable SHAHLA THAYER Primary Care Unavailable Shahla Thayer MD Primary Care Provider Shahla Thayer MD Primary Care Provider Shahla Thayer MD Primary Care Provider Hilary Rosa Unavailable Unavailabl guillermo Thayer, Dr. Shahla Bernal Attending Unavailab augustin Thayer, Dr. Shahla Bernal Referring Unavailab augustin Thayer, Dr. Shahla Bernal Primary Care Unavailab augustin Thayer, Dr. Shahla Bernal Attending Unavailab augustin Thayer, Dr. Shahla Bernal Referring Unavailab augustin Thayer, Dr. Shahla Bernal Primary Care Unavailab augustin Rolon, Dr. Clemencia Ly Admitting Vick Rolon, Dr. Clemencia yL Attending Vick Rolon, Dr. Clemencia Ly Referring Vick Thayer, Dr. Shahla Bernal Primary Care Unavailab augustin Rolon, Dr. Clemencia Ly Admitting Vick Rolon, Dr. Clemencia Ly Attending Vick Rolon, Dr. Clemencia Ly Referring Vick Thayer, Dr. Shahla Bernal Primary Care Unavailab augustin Thayer, Dr. Shahla Bernal Primary Care Unavailab augustin ROSA, PETER VARELA Attending Unavailable Jeovany, Dr. Shahla Bernal Primary Care Unavailab augustin Estrada, Dr. Katherine Nunn Attending Unavailmonty Salinas MD, [facility] Primary Care Provider Unavail able Brad BARILLAS, [facility] Primary Care Provider Unavail able Shahla Thayer Primary Care Provider Shahla Thayer MD Primary Care Provider Shahla Thayer MD Unavailable Shahla Thayer Primary Care Provider [phone] RASHAUN THORNE Attending Unavailable JEOVANY, SHAHLA Primary Care Unavailable RASHAUN THORNE Attending Unavailable JEOVANY, SHAHLA Primary Care Unavailable MD SHAHLA THAYER Primary Care UnavailMD SHAHLA Mcconnell Attending Unavailabl MD SHAHLA Musa Referring Unavailabl e JEOVANY, SHAHLA L Primary Care Unavailable JEOVANY, SHAHLA L Primary Care Unavailable JEOVANY, SHAHLA L Primary Care Unavailable GRAHAM BECERRA Attending Unavailable CLEMENCIA ROLON Referring Unavailable CLEMENCIA ROLON Attending Unavailable JEOVANY, SHAHLA L Primary Care Unavailable JEOVANY, SHAHLA L Primary Care Unavailable GRAHAM BECERRA Attending Unavailable JEOVANY, SHAHLA L Primary Care Unavailable GRAHAM BECERRA Attending Unavailable JEOVANY, SHAHLA L Primary Care Unavailable GRAHAM BECERRA Attending Unavailable JEOVANY, SHAHLA L Primary Care Unavailable GRAHAM BECERRA Referring Unavailable ROLONCLEMENCIA GIBSON Referring Unavailable JEOVANY, SHAHLA L Primary Care Unavailable RASHEL AGOSTO Attending Unavailabl e JEOVANY, SHAHLA L Attending Unavailable JEOVANY, SHAHLA L Primary Care Unavailable JEOVANY, SHAHLA L Attending Unavailable JEOVANY, SHAHLA L Primary Care Unavailable JEOVANY, SHAHLA L Attending Unavailable JEOVANY, SHAHLA L Primary Care Unavailable JEOVANY, SHAHLA L Attending Unavailable JEOVANY, SHAHLA L Primary Care Unavailable Allergies Allergy Classification Reported Allergen(s) Allergy Type Date of Onset Reaction(s) Facility Streptococcus pneumoniae type 1 capsular polysaccharide antigen / Streptococcus pneumoniae type 10A capsular polysaccharide antigen / Streptococcus pneumoniae type 11A capsular polysaccharide antigen / Streptococcus pneumoniae type 12F capsular polysaccharide antigen / Streptococcus pneumoniae type 14 capsular polysaccharide antigen / Streptococcus pneumoniae type 15B capsular polysaccharide antigen / Streptococcus pneumoniae type 17F capsular polysaccharide antigen / Streptococcus pneumoniae type 18C capsular polysaccharide antigen / Streptococcus pneumoniae type 19A capsular polysaccharide antigen / Streptococcus pneumoniae type 19F capsular polysaccharide antigen / Streptococcus pneumoniae type 2 capsular polysaccharide antigen / Streptococcus pneumoniae type 20 capsular polysaccharide antigen / Streptococcus pneumoniae type 22F capsular polysaccharide antigen / Streptococcus pneumoniae type 23F capsular polysaccharide antigen / Streptococcus pneumoniae type 3 capsular polysaccharide antigen / Streptococcus pneumoniae type 33F capsular polysaccharide antigen / Streptococcus pneumoniae type 4 capsular polysaccharide antigen / Streptococcus pneumoniae type 5 capsular polysaccharide antigen / Streptococcus pneumoniae type 6B capsular polysaccharide antigen / Streptococcus pneumoniae type 7F capsular polysaccharide antigen / Streptococcus pneumoniae type 8 capsular polysaccharide antigen / Streptococcus pneumoniae type 9N capsular polysaccharide antigen / Streptococcus pneumoniae type 9V capsular polysaccharide antigen (2 sources) Streptococcus pneumoniae type 1 capsular polysaccharide antigen / Streptococcus pneumoniae type 10A capsular polysaccharide antigen / Streptococcus pneumoniae type 11A capsular polysaccharide antigen / Streptococcus pneumoniae type 12F capsular polysaccharide antigen / Streptococcus pneumoniae type 14 capsular polysaccharide antigen / Streptococcus pneumoniae type 15B capsular polysaccharide antigen / Streptococcus pneumoniae type 17F capsular polysaccharide antigen / Streptococcus pneumoniae type 18C capsular polysaccharide antigen / Streptococcus pneumoniae type 19A capsular polysaccharide antigen / Streptococcus pneumoniae type 19F capsular polysaccharide antigen / Streptococcus pneumoniae type 2 capsular polysaccharide antigen / Streptococcus pneumoniae type 20 capsular polysaccharide antigen / Streptococcus pneumoniae type 22F capsular polysaccharide antigen / Streptococcus pneumoniae type 23F capsular polysaccharide antigen / Streptococcus pneumoniae type 3 capsular polysaccharide antigen / Streptococcus pneumoniae type 33F capsular polysaccharide antigen / Streptococcus pneumoniae type 4 capsular polysaccharide antigen / Streptococcus pneumoniae type 5 capsular polysaccharide antigen / Streptococcus pneumoniae type 6B capsular polysaccharide antigen / Streptococcus pneumoniae type 7F capsular polysaccharide antigen / Streptococcus pneumoniae type 8 capsular polysaccharide antigen / Streptococcus pneumoniae type 9N capsular polysaccharide antigen / Streptococcus pneumoniae type 9V capsular polysaccharide antigen; Translations: [Pneumovax 23 INJ] Drug Allergy 0 [facility] Work Phone: (7 sources) Streptococcus pneumoniae type 1 capsular polysaccharide antigen / Streptococcus pneumoniae type 10A capsular polysaccharide antigen / Streptococcus pneumoniae type 11A capsular polysaccharide antigen / Streptococcus pneumoniae type 12F capsular polysaccharide antigen / Streptococcus pneumoniae type 14 capsular polysaccharide antigen / Streptococcus pneumoniae type 15B capsular polysaccharide antigen / Streptococcus pneumoniae type 17F capsular polysaccharide antigen / Streptococcus pneumoniae type 18C capsular polysaccharide antigen / Streptococcus pneumoniae type 19A capsular polysaccharide antigen / Streptococcus pneumoniae type 19F capsular polysaccharide antigen / Streptococcus pneumoniae type 2 capsular polysaccharide antigen / Streptococcus pneumoniae type 20 capsular polysaccharide antigen / Streptococcus pneumoniae type 22F capsular polysaccharide antigen / Streptococcus pneumoniae type 23F capsular polysaccharide antigen / Streptococcus pneumoniae type 3 capsular polysaccharide antigen / Streptococcus pneumoniae type 33F capsular polysaccharide antigen / Streptococcus pneumoniae type 4 capsular polysaccharide antigen / Streptococcus pneumoniae type 5 capsular polysaccharide antigen / Streptococcus pneumoniae type 6B capsular polysaccharide antigen / Streptococcus pneumoniae type 7F capsular polysaccharide antigen / Streptococcus pneumoniae type 8 capsular polysaccharide antigen / Streptococcus pneumoniae type 9N capsular polysaccharide antigen / Streptococcus pneumoniae type 9V capsular polysaccharide antigen; Translations: [Pneumovax 23 INJ] Drug Allergy 0 Rash [facility] Work Phone: (5 sources) Pneumococcal vaccine; Translations: [PNEUMOCOCCAL VACCINE] Drug Allergy 0 Rash [facility] (1 source) pneumococcal 13-valent conjugate vaccine Rash [facility] (5 sources) Streptococcus pneumoniae type 1 capsular polysaccharide antigen / Streptococcus pneumoniae type 10A capsular polysaccharide antigen / Streptococcus pneumoniae type 11A capsular polysaccharide antigen / Streptococcus pneumoniae type 12F capsular polysaccharide antigen / Streptococcus pneumoniae type 14 capsular polysaccharide antigen / Streptococcus pneumoniae type 15B capsular polysaccharide antigen / Streptococcus pneumoniae type 17F capsular polysaccharide antigen / Streptococcus pneumoniae type 18C capsular polysaccharide antigen / Streptococcus pneumoniae type 19A capsular polysaccharide antigen / Streptococcus pneumoniae type 19F capsular polysaccharide antigen / Streptococcus pneumoniae type 2 capsular polysaccharide antigen / Streptococcus pneumoniae type 20 capsular polysaccharide antigen / Streptococcus pneumoniae type 22F capsular polysaccharide antigen / Streptococcus pneumoniae type 23F capsular polysaccharide antigen / Streptococcus pneumoniae type 3 capsular polysaccharide antigen / Streptococcus pneumoniae type 33F capsular polysaccharide antigen / Streptococcus pneumoniae type 4 capsular polysaccharide antigen / Streptococcus pneumoniae type 5 capsular polysaccharide antigen / Streptococcus pneumoniae type 6B capsular polysaccharide antigen / Streptococcus pneumoniae type 7F capsular polysaccharide antigen / Streptococcus pneumoniae type 8 capsular polysaccharide antigen / Streptococcus pneumoniae type 9N capsular polysaccharide antigen / Streptococcus pneumoniae type 9V capsular polysaccharide antigen; Translations: [PNEUMOCOCCAL 23-LYUDMILA PS VACCINE] Drug Allergy 0 Rash [facility] Medications Current Medications Medication Drug Class(es) Dates Sig (Normalized) Sig (Original) amoxicillin 875 mg / clavulanate 125 mg oral tablet (1 source) Penicillin-class Antibacterial Start: 09-08-2021 End: 09-17-2021 take 1 tablet by mouth twice daily at mealtime amoxicillin-clav ulanate 875 mg-125 mg oral tablet ; 875 milligram(s) orally 2 times a day Quantity: 20 Refills: 0 Ordered: 08-Sep-2021 Katherine Estrada Start: 08-Sep-2021 End: 17-Sep-2021 Generic Substitution Allowed Comments: Finish all this medication unless otherwise directed by prescriber.Take with food or milk. Completed/Discontinued Medications Medication Drug Class(es) Dates Sig (Normalized) Sig (Original) alendronic acid 70 mg oral tablet (9 sources) Bisphosphonate Start: 10-28-2019 End: 08-08-2021 take 1 tablet by mouth every week Alendronate Sodium 70 MG Oral Tablet TAKE 1 TABLET ONCE WEEKLY. Quantity: 4 Refills: 11 Ordered: 28-Oct-2020 Shahla Thayer MD Start : 28-Oct-2019 End : 08-Aug-2021 Complete Problems Active Problems Problem Classification Problem Date Documented Date Episodic/Chronic Acute cerebrovascular disease (13 sources) Cerebral artery occlusion; Translations: [Cerebral artery occlusion, unspecified with cerebral infarction] Onset: 08-17-2022 Resolved: 06-12-2022 08-17-2022 Chronic Anxiety disorders (5 sources) Mixed anxiety and depressive disorder; Translations: [Anxiety state, unspecified] Chronic Blindness and vision defects (1 source) Diplopia; Translations: [Diplopia] 12-05-2022 Episodic Cardiac and circulatory congenital anomalies (16 sources) Patent foramen ovale; Translations: [Ostium secundum type atrial septal defect] Onset: 08-17-2022 08-17-2022 Chronic Cataract (20 sources) 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; Translations: [Combined forms of age-related cataract, left eye] Onset: 09-06-2021 Chronic Chronic kidney disease (1 source) Chronic kidney disease stage 3; Translations: [Chronic renal insufficiency, stage III (moderate)] Chronic Conditions associated with dizziness or vertigo (5 sources) Dizziness; Translations: [Dizziness and giddiness] Onset: 07-07-2022 07-07-2022 Episodic Delirium, dementia, and amnestic and other cognitive disorders (10 sources) Unspecified dementia without behavioral disturbance; Translations: [Vascular dementia ] Onset: 07-07-2022 09-14-2022 Chronic Disorders of lipid metabolism (20 sources) Hyperlipidemia; Translations: [Hyperlipidemia, unspecified] Onset: 07-29-2009 07-29-2009 Chronic Genitourinary symptoms and ill-defined conditions (13 sources) Incontinence; Translations: [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)] Onset: 08-17-2022 08-17-2022 Chronic Genitourinary symptoms and ill-defined conditions (3 sources) Dysuria; Translations: [Sterile pyuria] Onset: 01-15-2023 Episodic Inflammation; infection of eye (except that caused by tuberculosis or sexually transmitteddisease) (1 source) Bilateral punctate keratitis of eyes; Translations: [Punctate keratitis, bilateral] Chronic Mood disorders (20 sources) Mild major depression; Translations: [Major depressive affective disorder, single episode, mild] Onset: 06-04-2009 08-25-2014 Chronic Mood disorders (1 source) Mood disorders; Translations: [Depression, unspecified] Onset: 07-07-2022 Nausea and vomiting (2 sources) Nausea; Translations: [Nausea] Onset: 07-07-2022 Episodic Osteoarthritis (18 sources) Osteoarthritis of left knee joint; Translations: [Osteoarthrosis, unspecified whether generalized or localized, lower leg] Onset: 08-17-2022 Chronic Osteoporosis (17 sources) Osteoporosis; Translations: [Osteoporosis, unspecified] Onset: 06-26-2022 Chronic Other aftercare (1 source) Other [employer] (current) drug therapy; Translations: [Other [facility] (current) drug therapy] Onset: 07-07-2022 Episodic Other and ill-defined cerebrovascular disease (2 sources) Cerebrovascular disease; Translations: [Cerebrovascular disease, unspecified] 01-09-2023 Chronic Other and ill-defined cerebrovascular disease (2 sources) Cerebrovascular disease, unspecified; Translations: [Cerebrovascular disease, unspecified] Onset: 01-09-2023 Chronic Other and unspecified benign neoplasm (16 sources) History of polyp of colon; Translations: [Personal history of colonic polyps] Onset: 03-22-2023 08-25-2014 Episodic Other bone disease and musculoskeletal deformities (1 source) Other specified disorders of bone density and structure, left thigh; Translations: [Oth disrd of bone density and structure, left thigh] Onset: 06-26-2022 Episodic Other circulatory disease (3 sources) Personal history of transient ischemic attack (TIA), and cerebral infarction without residual deficits; Translations: [Prsnl hx of TIA (TIA), and cereb infrc w/o resid deficits] Onset: 07-07-2022 Episodic Other circulatory disease (3 sources) History of transient ischemic attack; Translations: [Personal history of transient ischemic attack (TIA), and cerebral infarction without residual deficits] 11-14-2022 Episodic Other eye disorders (2 sources) Bilateral vitreous floaters; Translations: [Other vitreous opacities, bilateral] Chronic Other eye disorders (1 source) Bilateral posterior vitreous detachment; Translations: [Vitreous degeneration, bilateral] 12-05-2022 Chronic Other injuries and conditions due to external causes (1 source) Post-traumatic wound infection; Translations: [Posttraumatic wound infection not elsewhere classified] 09-08-2021 Episodic Other nervous system disorders (3 sources) Abnormal gait; Translations: [Abnormality of gait] Episodic Other nervous system disorders (2 sources) Poor balance; Translations: [Other symptoms involving nervous and musculoskeletal systems] Episodic Other nervous system disorders (1 source) Unspecified abnormalities of gait and mobility; Translations: [Unspecified abnormalities of gait and mobility] Onset: 06-20-2022 Episodic Other nervous system disorders (1 source) Other abnormalities of gait and mobility; Translations: [Other abnormalities of gait and mobility] Onset: 06-20-2022 Episodic Other non-traumatic joint disorders (13 sources) Polyarthropathy; Translations: [Unspecified polyarthropathy or polyarthritis, site unspecified] Onset: 08-17-2022 08-17-2022 Chronic Other non-traumatic joint disorders (7 sources) Pain in wrist; Translations: [Pain in joint, forearm] Episodic Other non-traumatic joint disorders (2 sources) Pain in left knee; Translations: [Pain in joint, lower leg] Episodic Other non-traumatic joint disorders (2 sources) Pain in right knee; Translations: [Pain in joint, lower leg] Onset: 02-02-2023 01-31-2023 Episodic Other screening for suspected conditions (not mental disorders or infectious disease) (1 source) Encounter for screening for osteoporosis; Translations: [Encounter for screening for osteoporosis] Onset: 06-26-2022 Episodic Other upper respiratory disease (14 sources) Allergic rhinitis; Translations: [Allergic rhinitis, unspecified] Onset: 07-08-2012 07-08-2012 Chronic Prolapse of female genital organs (12 sources) Disorder of vagina; 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, congenital or acquired] Onset: 08-17-2022 08-17-2022 Chronic Residual codes; unclassified (9 sources) History of clinical finding in subject; Translations: [Personal history of other specified diseases] Episodic Residual codes; unclassified (5 sources) Body mass index 20-24 - normal; Translations: [Body Mass Index between 19-24, adult] Episodic Residual codes; unclassified (3 sources) Amnesia; Translations: [Other amnesia] 11-14-2022 Episodic Residual codes; unclassified (2 sources) Insomnia, unspecified; Translations: [Insomnia, unspecified] Onset: 01-09-2023 Episodic Residual codes; unclassified (2 sources) Other amnesia; Translations: [Other amnesia] Onset: 11-14-2022 Episodic Thyroid disorders (13 sources) Subclinical hypothyroidism; Translations: [Other specified acquired hypothyroidism] Onset: 08-17-2022 08-17-2022 Chronic Unclassified (2 sources) LEFT HAND REDNESS 09-08-2021 Past or Other Problems Problem Classification Problem Date Documented Da te Episodic/Chronic Diabetes mellitus without complication (1 source) Impaired glucose tolerance; Translations: [Glucose intolerance (impaired glucose tolerance)] Episodic E Codes: Natural/environment (1 source) Scratched by cat, initial encounter; Translations: [Scratched by cat, initial encounter] Onset: 2 Episodic Immunizations and screening for infectious disease (1 source) Encounter for immunization; Translations: [Encounter for immunization] Onset: 2 Episodic Open wounds of extremities (2 sources) Puncture wound of left hand; Translations: [Open wound of hand except finger(s) alone, without mention of complication] Onset: 2 09-08-2021 Episodic Osteoarthritis (1 source) Osteoarthritis of left knee joint; Translations: [Osteoarthritis of left knee] Other bone disease and musculoskeletal deformities (16 sources) Osteopenia; Translations: [Other specified disorders of bone density and structure, unspecified site] Onset: 0 06-04-2009 Episodic Other connective tissue disease (1 source) Other specified soft tissue disorders; Translations: [Other specified soft tissue disorders] Onset: 2 Episodic Other eye disorders (12 sources) H/O: R cataract extraction; Translations: [Cataract extraction status, right eye] Onset: 2 Episodic Other eye disorders (8 sources) H/O: L cataract extraction; Translations: [Cataract extraction status, left eye] Onset: 2 Episodic Other female genital disorders (1 source) Disorder of vagina; Translations: [Colpocele] Episodic Other inflammatory condition of skin (1 source) Erythematous condition, unspecified; Translations: [Erythematous condition, unspecified] Onset: 2 Episodic Other nervous system disorders (16 sources) Impaired cognition; Translations: [Other symptoms and signs involving cognitive functions and awareness] Onset: 3 07-08-2012 Episodic Other non-traumatic joint disorders (3 sources) Pain of left wrist; Translations: [Pain in left wrist] Onset: 3 Resolved: 3 08-18-2022 Episodic Phlebitis; thrombophlebitis and thromboembolism (12 sources) Phlebitis; Translations: [Phlebitis and thrombophlebitis of unspecified site] Onset: 3 Resolved: 3 Episodic Residual codes; unclassified (20 sources) Insomnia; Translations: [Insomnia, unspecified] Onset: 0 Resolved: 3 06-04-2009 Episodic Residual codes; unclassified (8 sources) Poor short-term memory ; Translations: [Memory loss] Onset: 3 08-17-2022 Episodic Residual codes; unclassified (14 sources) Family history of malignant neoplasm of breast in first degree relative; Translations: [Family history of malignant neoplasm of breast] Onset: 0 06-04-2009 Episodic Residual codes; unclassified (14 sources) Family history of cancer of colon; Translations: [Family history of malignant neoplasm of digestive organs] Onset: 0 06-04-2009 Episodic Skin and subcutaneous tissue infections (2 sources) Cellulitis of hand; Translations: [Cellulitis and abscess of hand, except fingers and thumb] Onset: 2 09-08-2021 Episodic Spondylosis; intervertebral disc disorders; other back problems (16 sources) Sciatica; Translations: [Sciatica, unspecified side] Onset: 0 06-04-2009 Episodic Superficial injury; contusion (1 source) Abrasion of left hand, initial encounter; Translations: [Abrasion of left hand, initial encounter] Onset: 2 Episodic Unclassified (1 source) History of clinical finding in subject; Translations: [History of breast lump] Unclassified (1 source) EFT HAND REDNESS 09-08-2021 Results Test Name Value Interpretation Reference Range Facil ity Vital Signs Date Time Vital Sign Value Performing Clinician Facility 06-13-2023 16:00-0500 Diastolic blood pressure 74 mm[Hg] Patrice Moreno DO Work Phone: [facility] 06-13-2023 16:00-0500 Heart rate 83 /min Patrice Moreno DO Work Phone: [facility] 06-13-2023 16:00-0500 Respiratory rate 19 /min Patrice Moreno DO Work Phone: [facility] 06-13-2023 16:00-0500 SaO2% (BldA) [Mass fraction] 96 % Patrice Moreno DO Work Phone: [facility] 06-13-2023 16:00-0500 Systolic blood pressure 147 mm[Hg] Patrice Moreno DO Work Phone: [facility] 06-13-2023 13:19-0500 Body height 157.5 cm Patrice Moreno DO Work Phone: [facility] 06-13-2023 13:19-0500 Body mass index (BMI) [Ratio] 21.95 kg/m2 Patrice Moreno DO Work Phone: [facility] 06-13-2023 13:19-0500 Body temperature 98.2 [degF] Patrice Moreno DO Work Phone: [facility] 06-13-2023 13:19-0500 Body weight 54.43 kg Patrice Moreno DO Work Phone: [facility] 03-22-2023 09:44-0400 Body height 157.5 cm Shahla Thayer MD Work Phone: [facility] 03-22-2023 09:44-0400 Body mass index (BMI) [Ratio] 22.5 kg/m2 Shahla hTayer MD Work Phone: [facility] 03-22-2023 09:44-0400 Body weight 55.79 kg Shahla Thayer MD Work Phone: [facility] 03-22-2023 09:44-0400 Diastolic blood pressure 72 mm[Hg] Shahla Thayer MD Work Phone: [facility] 03-22-2023 09:44-0400 Heart rate 66 /min Shahla Thayer MD Work Phone: [facility] 03-22-2023 09:44-0400 Systolic blood pressure 124 mm[Hg] Shahla Thayer MD Work Phone: [facility] 01-09-2023 16:00-0400 Body weight 57.61 kg Rashaun Mcmahanirk CRIMINAL RESEARCH SPECIALIST - HOME ENERGY CONSULTANT SUPERVISOR Work Phone: [facility] 11-14-2022 11:32-0400 Diastolic blood pressure 78 mm[Hg] Rashaun Quirk CRIMINAL RESEARCH SPECIALIST - HOME ENERGY CONSULTANT SUPERVISOR Work Phone: [facility] 11-14-2022 11:32-0400 Heart rate 91 /min Rashaun Mcmahanirk CRIMINAL RESEARCH SPECIALIST - HOME ENERGY CONSULTANT SUPERVISOR Work Phone: [facility] 11-14-2022 11:32-0400 Systolic blood pressure 147 mm[Hg] Rashaun Mcmahanirk CRIMINAL RESEARCH SPECIALIST - HOME ENERGY CONSULTANT SUPERVISOR Work Phone: [facility] 11-14-2022 11:31-0400 Body weight 56.88 kg Rashaun Quirk CRIMINAL RESEARCH SPECIALIST - HOME ENERGY CONSULTANT SUPERVISOR Work Phone: [facility] 09-14-2022 10:03-0400 Body height 156.8 cm Shahla Thayer MD Work Phone: [facility] 09-14-2022 10:03-0400 Body mass index (BMI) [Ratio] 22.93 kg/m2 Shahla Thayer MD Work Phone: [facility] 09-14-2022 10:03-0400 Body weight 56.38 kg Shahla Thayer MD Work Phone: [facility] 09-14-2022 10:03-0400 Diastolic blood pressure 70 mm[Hg] Shahla Thayer MD Work Phone: [facility] 09-14-2022 10:03-0400 Heart rate 89 /min Shahla Thayer MD Work Phone: [facility] 09-14-2022 10:03-0400 Systolic blood pressure 120 mm[Hg] Shahla Thayer MD Work Phone: [facility] 07-07-2022 16:30-0500 Heart rate 78 /min Shahla Thayer Other Phone: [facility] 07-07-2022 16:30-0500 Respiratory rate 18 /min Shahla Thayer Other Phone: [facility] 07-07-2022 16:30-0500 SaO2% (BldA) [Mass fraction] 97 % Shahla Thayer Other Phone: [facility] 07-07-2022 16:00-0500 Diastolic blood pressure 84 mm[Hg] Shahla Thayer Other Phone: [facility] 07-07-2022 16:00-0500 Systolic blood pressure 165 mm[Hg] Shahla Jeovany Other Phone: [facility] 07-07-2022 13:56-0500 Body height 157.4 cm Shahla Thayer Other Phone: [facility] 07-07-2022 13:56-0500 Body temperature 98.06 [degF] Shahla Thayer Other Phone: [facility] 07-07-2022 13:56-0500 Body weight 54.5 kg Shahla Thayer Other Phone: [facility] 06-12-2022 11:09-0500 Body height 157.48 cm Shahla L Jeovany Work Phone: [facility] Work Phone: 06-12-2022 11:09-0500 Body mass index (BMI) [Ratio] 22.59 kg/m2 Shahla L Jeovany Work Phone: [facility] Work Phone: 06-12-2022 11:09-0500 Body surface area Derived from formula 1.56 m2 Shahla L Jeovany Work Phone: [facility] Work Phone: 06-12-2022 11:09-0500 Body weight 56.02 kg Shahla L Jeovany Work Phone: [facility] Work Phone: 06-12-2022 11:09-0500 Diastolic blood pressure 80 mm[Hg] Shahla L Jeovany Work Phone: [facility] Work Phone: 06-12-2022 11:09-0500 Heart rate 90 /min Shahla L Jeovany Work Phone: [facility] Work Phone: 06-12-2022 11:09-0500 Systolic blood pressure 118 mm[Hg] Shahla Vazquez Jeovany Work Phone: [facility] Work Phone: 10-12-2021 11:55-0400 Diastolic blood pressure 56 mm[Hg] Clemencia Rolon MD Work Phone: [facility] 10-12-2021 11:55-0400 Heart rate 94 /min Clemencia Rolon MD Work Phone: [facility] 10-12-2021 11:55-0400 Systolic blood pressure 135 mm[Hg] Clmeencia Rolon MD Work Phone: [facility] 09-08-2021 17:36-0400 Diastolic blood pressure 68 mm[Hg] Shahla Thayer Other Phone: [facility] 09-08-2021 17:36-0400 Heart rate 82 /min Shahla Ejovany Other Phone: [facility] 09-08-2021 17:36-0400 Respiratory rate 16 /min Shahla Jeovany Other Phone: [facility] 09-08-2021 17:36-0400 SaO2% (BldA) [Mass fraction] 97 % Shahla Jeovany Other Phone: [facility] 09-08-2021 17:36-0400 Systolic blood pressure 124 mm[Hg] Shahla Jeovany Other Phone: [facility] 09-08-2021 17:14-0400 Body height 154.9 cm Shahla Jeovany Other Phone: [facility] 09-08-2021 17:14-0400 Body temperature 98.78 [degF] Shahla Rosarioer Other Phone: [facility] 09-08-2021 17:14-0400 Body weight 54.5 kg Shahla Jeovany Other Phone: [facility] 08-08-2021 13:38-0400 Body height 157.48 cm Shahla L Jeovany Work Phone: [facility] [employer] Work Phone: 08-08-2021 13:38-0400 Body mass index (BMI) [Ratio] 23.32 kg/m2 Shahla L Jeovany Work Phone: [facility] Work Phone: 08-08-2021 13:38-0400 Body surface area Derived from formula 1.58 m2 Shahla L Jeovany Work Phone: [facility] Work Phone: 08-08-2021 13:38-0400 Body weight 57.83 kg Shahla L Jeovany Work Phone: [facility] Work Phone: 08-08-2021 13:38-0400 Diastolic blood pressure 72 mm[Hg] Shahla L Jeovany Work Phone: [facility] Work Phone: 08-08-2021 13:38-0400 Heart rate 102 /min Shahla L Jeovany Work Phone: [facility] Work Phone: 08-08-2021 13:38-0400 Systolic blood pressure 130 mm[Hg] Shahla L Jeovany Work Phone: [facility] Work Phone: 06-03-2021 10:16-0500 Body height 157.48 cm Shahla L Jeovany Work Phone: [facility] Work Phone: 06-03-2021 10:16-0500 Body mass index (BMI) [Ratio] 23.14 kg/m2 Shahla L Jeovany Work Phone: [facility] Work Phone: 06-03-2021 10:16-0500 Body surface area Derived from formula 1.57 m2 Shahla L Jeovany Work Phone: [facility] Work Phone: 06-03-2021 10:16-0500 Body weight 57.38 kg Shahla L Jeovany Work Phone: [facility] Work Phone: 06-03-2021 10:16-0500 Diastolic blood pressure 78 mm[Hg] Shahla L Jeovany Work Phone: [facility] Work Phone: 06-03-2021 10:16-0500 Heart rate 95 /min Shahla L Jeovany Work Phone: [facility] Work Phone: 06-03-2021 10:16-0500 Systolic blood pressure 122 mm[Hg] Shahla L Jeovany Work Phone: [facility] Work Phone: 03-23-2021 11:29-0400 Body height 157.48 cm Shahla L Jeovany Work Phone: [facility] Work Phone: 03-23-2021 11:29-0400 Body mass index (BMI) [Ratio] 23.23 kg/m2 Shahla L Jeovany Work Phone: [facility] Work Phone: 03-23-2021 11:29-0400 Body surface area Derived from formula 1.58 m2 Shahla L Jeovany Work Phone: [facility] Work Phone: 03-23-2021 11:29-0400 Body weight 57.6 kg Shahla L Ejovany Work Phone: [facility] Work Phone: 03-23-2021 11:29-0400 Diastolic blood pressure 70 mm[Hg] Shahla L Jeovany Work Phone: [facility] Work Phone: 03-23-2021 11:29-0400 Heart rate 80 /min Shahla L Jeovany Work Phone: [facility] Work Phone: 03-23-2021 11:29-0400 Systolic blood pressure 128 mm[Hg] Shahla L Jeovany Work Phone: [facility] Work Phone: 11-30-2020 15:22-0400 Body height 157.48 cm Shahla L Jeovany Work Phone: [facility] Work Phone: 11-30-2020 15:22-0400 Body mass index (BMI) [Ratio] 23.08 kg/m2 Shahla L Jeovany Work Phone: [facility] Work Phone: 11-30-2020 15:22-0400 Body surface area Derived from formula 1.57 m2 Shahla Rosarioer Work Phone: [facility] Work Phone: 11-30-2020 15:22-0400 Body temperature 97.5 [degF] Shahla Rosarioer Work Phone: [facility] Work Phone: 11-30-2020 15:22-0400 Body weight 57.24 kg Shahla L Jeovany Work Phone: [facility] Work Phone: 11-30-2020 15:22-0400 Diastolic blood pressure 69 mm[Hg] Shahla Rosarioer Work Phone: [facility] Work Phone: 11-30-2020 15:22-0400 Heart rate 96 /min Shahlaglendy Rosarioer Work Phone: [facility] Work Phone: 11-30-2020 15:22-0400 Systolic blood pressure 132 mm[Hg] Shahla Rosarioer Work Phone: [facility] Work Phone: 11-06-2020 13:32-0400 Heart rate 94 /min Zeke Ku MD Work Phone: [facility] 06-18-2019 12:14-0500 BMI (Body Mass Index) 22.18 kg/m2 Shahla Rosarioer [facility] Work Phone: 06-18-2019 12:14-0500 Body weight 55 kg Shahla Rosarioer [facility] Work Phone: 06-18-2019 12:14-0500 BP Diastolic 72 mm[Hg] Shahla Rosarioer [facility] Work Phone: 06-18-2019 12:14-0500 BP Systolic 124 mm[Hg] [facility] Work Phone: 06-18-2019 12:14-0500 BSA (Body Surface Area) 1.55 m2 [facility] Work Phone: 06-18-2019 12:14-0500 Height 157.48 cm [facility] Work Phone: 06-18-2019 12:14-0500 Pulse (Heart Rate) 84 /min [facility]la [facility] Work Phone: Encounters Encounter Date Encounter Type Care Provider Facility Start: 06-13-2023 End: 06-13-2023 Emergency department patient visit Patrice Moreno DO Work Phone: [facility] Emergency Medicine Procedures Date Procedure Procedure Detail Performing Clinician Start: 06-13-2023 Urinalysis complete W Reflex Culture panel - Urine Patrice Moreno DO Work Phone: Start: 06-13-2023 Urnls dip stick/tabl et reagent auto microscopy Patrice Moreno DO Work Phone: Start: 06-13-2023 Assay of troponin quantitative Patrice Moreno DO Work Phone: Start: 06-13-2023 Ct head/brain w/o co ntrast material Patrice Moreno DO Work Phone: Start: 06-13-2023 Comprehensive metabo lic panel Patrice Moreno DO Work Phone: Start: 06-13-2023 Influenza virus A an d B RNA [Identifier] in Unspecified specimen by JENNIFER with probe detection Patrice Moreno DO Work Phone: Start: 06-13-2023 Respiratory syncytia l virus RNA [Presence] in Respiratory specimen by JENNIFER with probe detection Patrice Moreno DO Work Phone: Start: 06-13-2023 SARS-CoV-2 (COVID-19 ) RNA [Presence] in Respiratory specimen by JENNIFER with probe detection Patrice Moreno DO Work Phone: Start: 06-13-2023 Troponin I.cardiac p sudha - Serum or Plasma by High sensitivity method Patrice Moreno DO Work Phone: Start: 06-13-2023 Radiologic exam ches t single view Patrice Moreno DO Work Phone: Start: 03-16-2023 Arthrocentesis aspir &/inj major jt/bursa w/o us Graham Hernan DO Work Phone: Start: 02-01-2023 JEFF-WITH REFLEX TO ROBERT SHAHLA THAYER Start: 02-01-2023 ROBERT PANEL SHAHLA RA MORRIS Start: 02-01-2023 Thyrotropin [Units/v olume] in Serum or Plasma Shahla Thayer MD Work Phone: Start: 01-15-2023 Bacteria identified in Urine by Culture SHAHLA THAYER Start: 01-15-2023 URINALYSIS MICROSCOPIC ONLY SHAHLA THAYER Start: 01-15-2023 URINALYSIS WITH REFL EX MICROSCOPIC AND CULTURE SHAHLA THAYER Start: 01-15-2023 URINE RAMAN TUBE SHAHLA THAYER Start: 11-14-2022 Adult depression scr eening assessment Rashaun Thorne CRIMINAL RESEARCH SPECIALIST - HOME ENERGY CONSULTANT SUPERVISOR Work Phone: Start: 08-04-2022 Arthrocentesis aspir &/inj major jt/bursa w/o us Graham Hernan DO Work Phone: Start: 07-07-2022 End: 07-07-2022 EKG impression Hilary Rosa Start: 06-02-2022 Fundus photography w/interpretation & report Clemencia Rolon MD Work Phone: Start: 01-27-2022 Radiologic exam knee complete 4/more views Graham Becerra DO Work Phone: Start: 11-06-2020 Radex wrist complete minimum 3 views Zeke Ku MD Work Phone: Start: 04-23-2020 Lipid 1996 panel - S kj or Plasma Shahla Thayer MD Work Phone: Start: 06-18-2019 Basic metabolic 1998 panel - Serum or Plasma Shahla Thayer Start: 06-18-2019 Blood count complete auto&auto difrntl wbc Shahla Thayer Start: 06-18-2019 Lipid panel Shahla Ra morris Start: 06-18-2019 TSH WITH REFLEX TO F REE T4 IF ABNORMAL Shahla Thayer Start: 06-21-2014 Colonoscopy Shahla Thayer Work Phone: End: 06-21-2014 Colonoscopy Shahla Thayer Ligation of fallopian tube D ouglas Jeovany Lumpectomy of breast Shahla Thayer Operative procedure on ankle Shahla Thayer Plan of Treatment Date Care Activity Detail Author Start: 12-19-2031 DTaP/Tdap/Td Vaccine s (2 - Td or Tdap) DTaP/Tdap/Td Vaccines (2 - Td or Tdap) [facility] Start: 12-19-2031 DTaP/Tdap/Td Vaccine s (3 - Td or Tdap) DTaP/Tdap/Td Vaccines (3 - Td or Tdap) [facility] Start: 12-19-2031 Urine microalbumin profile DTaP,Tdap,Td Vaccine (3 - Td or Tdap) [facility] Start: 02-01-2026 Diabetes Screening Diabetes Screenin g [facility] Start: 04-23-2025 Lipid panel Lipid Panel [facility] Start: 06-26-2024 Screening for osteoporosis Bone Density Scan [facility] Start: 02-02-2024 Thyroid stimulating hormone measurement TSH Level [facility] Start: 11-15-2023 Depression Screening Depression Scre ening [facility] Start: 07-30-2023 End: 07-30-2023 Patient encounter procedure 07/30/2023 4:00 PM EDT Office Visit [facility] [address] [place] [id number] Shahla Thayer MD [address] [facility], [address] [place] [address] [facility] Start: 07-23-2023 End: 03-22-2024 Basic metabolic 2000 panel - Serum or Plasma Basic Metabolic Panel Lab Routine Sterile pyuria Expected: 07/23/2023, Expires: 03/22/2024 [facility] Service Area Work Phone: Immunizations Immunization Date Immunization Notes Care Provider Cuco george 03-06-2023 Influenza, Seasonal, Quadrivalent, Adjuvanted Shahla Thayer MD Work Phone: [facility] Work Phone: 03-06-2023 Pfizer COVID-19 vaccine, Fall 2022, 12 years and older, (30mcg/0.3mL) Shahla Thayer MD Work Phone: [facility] Work Phone: 03-29-2022 Fluad Quadrivalent 0 .5 ML Intramuscular Prefilled Syringe Shahla Thayer Work Phone: [facility] Work Phone: 03-29-2022 influenza, seasonal, injectable Shahla Thayer MD Work Phone: [facility] Work Phone: 03-29-2022 Pfizer COVID-19 Vac Bivalent 30 MCG/0.3ML Intramuscular Suspension Shahla Thayer Work Phone: [facility] Work Phone: 03-29-2022 influenza virus vaccine, unspecified formulation Shahla Thayer Work Phone: [facility] 12-18-2021 tetanus toxoid, redu mc diphtheria toxoid, and acellular pertussis vaccine, adsorbed Shahla Thayer MD Work Phone: [facility] Work Phone: 09-08-2021 tetanus toxoid, redu mc diphtheria toxoid, and acellular pertussis vaccine, adsorbed Shahla Thayer Other Phone: [facility] 04-20-2021 Pfizer-BioNTech COVID-19 Vacc 30 MCG/0.3ML Intramuscular Suspension Shahla Thayer Work Phone: [facility] Work Phone: 03-08-2021 influenza, high dose seasonal, preservative-free Shahla Thayer Work Phone: [facility] Work Phone: 07-09-2020 Moderna COVID-19 Vaccine 100 MCG/0.5ML Intramuscular Suspension Shahla Thayer Work Phone: [facility] Work Phone: Payers Date Payer Category Payer Private Health Insurance [id number] 2015 Private Health Insurance [id number] 2015 Private Health Insurance [id number] 2009 Unknown [employer] BLUE CARD PPO OOS [id number] 2009-Present [phone] [facility] [id number] [place] [address] PPO [id number] 2009 Unknown [id number] 2003 Medicare [id number] 2003 Medicare [id number] 2003 Medicare [id number] 2003 Unknown 1938 Unknown [id number]. 902 1938 Unknown [id number] [id number]. 902 1938 Unknown [id number] 2.16.840.1.162136.3.579.2. 1069 1938 Unknown [id number] 2.16.840.1.322351.3.579.2. 9 1938 Unknown [id number] 2.16.840.1.315641.3.579.2. 1068 1938 Unknown [id number] 2.16.840.1.179754.3.579.2. 1068 1938 Unknown [id number] 2.16.840.1.306393.3.579.2. 9 1938 Unknown [id number] 2.16.840.1.978461.3.579.2. 1068 1938 Unknown [id number] 2.16.840.1.948243.3.579.2. 356 1938 Unknown [id number] 2.16.840.1.336724.3.579.2. 1244 1938 Unknown [id number] 2.16.840.1.526117.3.579.2. 1244 1938 Unknown [id number] 2.16.840.1.938728.3.579.2. 1243 1938 Unknown [id number] 2.16.840.1.916634.3.579.2. 4 1938 Unknown [id number] [id number]. 1243 1938 Unknown [id number] [id number]. 124 Unknown [id number] Social History Date Type Detail Facility Start: 09-14-2022 End: 03-22-2023 Never a smoker Never a smoker [facility] Work Phone: Start: 11-06-2020 Tobacco smoking status MOIS Unknown if ever smoked [facility] Start: 11-06-2020 End: 01-09-2023 Alcohol intake Current drinker of alcohol (finding) [facility] Start: 11-06-2020 Alcohol Comment monthly [facility] Start: 1940 Sex Assigned At Not on file [facility] Start: 09-14-2022 End: 11-14-2022 Tobacco smoking status NHIS Never smoked tobacco [facility] Work Phone: Start: 10-07-2021 End: 03-16-2023 Alcohol intake Current non-drinker of alcohol (finding) [facility] Start: 09-27-2021 End: 06-13-2023 Exposure to SARS-CoV-2 (event) Not sure [facility] Start: 01-14-2022 End: 01-24-2022 Exposure to SARS-CoV-2 (event) Unable to assess [facility] Work Phone: Start: 09-14-2022 End: 11-14-2022 Tobacco use and exposure Smokeless tobacco non-user [facility] Work Phone: Start: 09-14-2022 End: 03-22-2023 Tobacco use panel [facility] Work Phone: Start: 11-14-2022 Alcohol Comment rarely [facility] National Score (1-100), lower number is lower risk 91 [facility] Start: 1940 [facility] Start: 10-30-2022 Gender identity Identifies as female gender (finding) [facility] Work Phone: Start: 10-30-2022 Sexual orientation Heterosexual (fin ding) [facility] Work Phone: NEGATED: Highlighted row - - [facility] Work Phone: Medical Equipment Procedure Code Equipment Code Equipment Origin al Text Equipment Identifier Dates Lens, Intraocula r, [id number] 20.0 Padmini Case [id number] Start: 10-06-2021 Functional Status Date Assessment Result Facility NEGATED: Highlighted row Functional performance Functional status health issues are not documented Disease [facility] Work Phone: Mental Status Date Assessment Result Facility NEGATED: Highlighted row Cognitive function [Interpretation] Cognitive status health issues are not documented Disease [facility] Work Phone: Clinical Notes 11-06-2020 to 06-13-2023 Patrice Frias Josh, DO - 06/13/2023 1:13 PM Noelle Moreno, DO - 06/13/2023 1:13 PM Mame Thayer MD - 03/22/2023 9:40 AM EDTGraham Becerra V, DO - 03/16/2023 10:54 AM EDTPatient Instructions Note Date & Type Note Facility 06-13-2023 Emergency department Note HPI Chief Complaint Patient presents with Dizziness Patient to ED reference dizziness with nausea/vomiting. She has history of vertigo but states this is different. She also c/o feeling weak and sick. Patient presents to the emergency department accompanied by family secondary to generalized weakness with dizziness and occasional vomiting. History of similar. Denies falling. Denies pain. Patient states I just feel wiped out . History provided by: Patient and relative sales coach used: No No data recorded Patient History Past Medical History: Diagnosis Date Personal history of other specified conditions History of breast lump Past Surgical History: Procedure Laterality Date OTHER SURGICAL HISTORY 06/17/2019 Lumpectomy OTHER SURGICAL HISTORY 06/17/2019 Ankle surgery OTHER SURGICAL HISTORY 06/17/2019 Tubal ligation OTHER SURGICAL HISTORY 10/26/2020 Colonoscopy Family History Problem Relation Name Age of Onset Breast cancer Mother Colon cancer Mother Leukemia Sister Lung cancer Sister Breast cancer Sister Heart attack Sister Throat cancer Sister Lupus Sister Other (cardiac disorder) Brother Congenital heart disease Brother Heart attack Brother Social History Tobacco Use Smoking status: Never Smokeless tobacco: Never Substance Use Topics Alcohol use: Not on file Drug use: Not on file Physical Exam ED Triage Vitals [06/13/23 1319] Temperature Heart Rate Respirations BP 36.8 C (98.2 F) (!) 102 (!) 22 133/73 Pulse Ox Temp Source Heart Rate Source Patient Position 97 % Temporal Monitor Lying BP Location FiO2 (%) Right arm -- Physical Exam Vitals and nursing note reviewed. Constitutional: General: She is not in acute distress. Appearance: Normal appearance. She is normal weight. She is not ill-appearing, toxic-appearing or diaphoretic. HENT: Head: Normocephalic and atraumatic. Nose: Nose normal. No rhinorrhea. Neck: Comments: Trachea is midline Cardiovascular: Rate and Rhythm: Normal rate and regular rhythm. Heart sounds: No murmur heard. Pulmonary: Effort: Pulmonary effort is normal. Breath sounds: Normal breath sounds. No wheezing. Abdominal: General: Abdomen is flat. Bowel sounds are normal. There is no distension. Palpations: Abdomen is soft. Tenderness: There is no abdominal tenderness. Musculoskeletal: General: Normal range of motion. Cervical back: Normal range of motion. Skin: General: Skin is warm and dry. Findings: No rash. Neurological: General: No focal deficit present. Mental Status: She is alert and oriented to person, place, and time. Mental status is at baseline. Psychiatric: Mood and Affect: Mood normal. Behavior: Behavior normal. Thought Content: Thought content normal. Judgment: Judgment normal. ED Course & MDM Diagnoses as of 06/13/23 8860 Dizziness Medical Decision Making Twelve-lead EKG was interpreted by myself and this was noted to contribute directly to patient care. Study reveals a normal sinus rhythm at 96 bpm, normal axis, normal R wave progression, no acute ischemic changes. Patient's workup is overall unremarkable here. She was ambulatory in the hallway without difficulty. Patient and her family are reporting similar symptoms intermittent for quite some time. States that the vomiting is provoked when the patient has episodes of dizziness. She has had no dizziness while here in the department. Given the chronic nature of her symptoms, and her unremarkable workup, I feel she can be discharged safely at this time. Differential considerations would include benign positional vertigo, deconditioning, amongst many others. Patient will be given prescriptions for meclizine and Zofran and referred to ENT in the event that this is vestibular in origin. Instructed to limit activity as tolerated and take her time with positional changes. Follow-up as instructed and return at anytime if worse. Procedure Procedures Patrice Moreno DO 06/13/[id number] documented in this encounter [facility] Work Phone: 06-13-2023 Physician Emergency department Note HPI Chief Complaint Patient presents with Dizziness Patient to ED reference dizziness with nausea/vomiting. She has history of vertigo but states this is different. She also c/o feeling weak and sick. Patient presents to the emergency department accompanied by family secondary to generalized weakness with dizziness and occasional vomiting. History of similar. Denies falling. Denies pain. Patient states I just feel wiped out . History provided by: Patient and relative sales coach used: No No data recorded Patient History Past Medical History: Diagnosis Date Personal history of other specified conditions History of breast lump Past Surgical History: Procedure Laterality Date OTHER SURGICAL HISTORY 06/17/2019 Lumpectomy OTHER SURGICAL HISTORY 06/17/2019 Ankle surgery OTHER SURGICAL HISTORY 06/17/2019 Tubal ligation OTHER SURGICAL HISTORY 10/26/2020 Colonoscopy Family History Problem Relation Name Age of Onset Breast cancer Mother Colon cancer Mother Leukemia Sister Lung cancer Sister Breast cancer Sister Heart attack Sister Throat cancer Sister Lupus Sister Other (cardiac disorder) Brother Congenital heart disease Brother Heart attack Brother Social History Tobacco Use Smoking status: Never Smokeless tobacco: Never Substance Use Topics Alcohol use: Not on file Drug use: Not on file Physical Exam ED Triage Vitals [06/13/23 1319] Temperature Heart Rate Respirations BP 36.8 C (98.2 F) (!) 102 (!) 22 133/73 Pulse Ox Temp Source Heart Rate Source Patient Position 97 % Temporal Monitor Lying BP Location FiO2 (%) Right arm -- Physical Exam Vitals and nursing note reviewed. Constitutional: General: She is not in acute distress. Appearance: Normal appearance. She is normal weight. She is not ill-appearing, toxic-appearing or diaphoretic. HENT: Head: Normocephalic and atraumatic. Nose: Nose normal. No rhinorrhea. Neck: Comments: Trachea is midline Cardiovascular: Rate and Rhythm: Normal rate and regular rhythm. Heart sounds: No murmur heard. Pulmonary: Effort: Pulmonary effort is normal. Breath sounds: Normal breath sounds. No wheezing. Abdominal: General: Abdomen is flat. Bowel sounds are normal. There is no distension. Palpations: Abdomen is soft. Tenderness: There is no abdominal tenderness. Musculoskeletal: General: Normal range of motion. Cervical back: Normal range of motion. Skin: General: Skin is warm and dry. Findings: No rash. Neurological: General: No focal deficit present. Mental Status: She is alert and oriented to person, place, and time. Mental status is at baseline. Psychiatric: Mood and Affect: Mood normal. Behavior: Behavior normal. Thought Content: Thought content normal. Judgment: Judgment normal. ED Course & MDM Diagnoses as of 06/13/23 1649 Dizziness Medical Decision Making Twelve-lead EKG was interpreted by myself and this was noted to contribute directly to patient care. Study reveals a normal sinus rhythm at 96 bpm, normal axis, normal R wave progression, no acute ischemic changes. Patient's workup is overall unremarkable here. She was ambulatory in the hallway without difficulty. Patient and her family are reporting similar symptoms intermittent for quite some time. States that the vomiting is provoked when the patient has episodes of dizziness. She has had no dizziness while here in the department. Given the chronic nature of her symptoms, and her unremarkable workup, I feel she can be discharged safely at this time. Differential considerations would include benign positional vertigo, deconditioning, amongst many others. Patient will be given prescriptions for meclizine and Zofran and referred to ENT in the event that this is vestibular in origin. Instructed to limit activity as tolerated and take her time with positional changes. Follow-up as instructed and return at anytime if worse. Procedure Procedures Patrice Moreno DO 06/13/231649 [facility] Work Phone: 03-22-2023 History of Present illness Narrative Subjective Patient ID: Alfonzo Courtney is a 83 y.o. female who presents for Follow-up (Rev labs and us). HPI H/o sterile pyuria CKD 3a You don not have lupus which can cause white blood cells in your urine. Your kidney ultrasound overall looks good except the one kidney is a little smaller and function is moderately reduced. We will monitor your kidney function and urine every 6 months. Currently no dysuria or hematuria no odor changes H/o CVA TIA PFO 2019 No new neurologic symptoms Right hand weakness Dtr wanting to know if should see cardiology again but pt does not want to They well call and let me know if they change mind Cont aspirin Review of Systems Respiratory: Negative for cough and shortness of breath. Cardiovascular: Negative for chest pain and palpitations. Objective BP 124/72 (BP Location: Left arm, Patient Position: Sitting) Pulse 66 Ht 1.575 m (5' 2 ) Wt 55.8 kg (123 lb) BMI 22.50 kg/m Physical Exam Vitals reviewed. Constitutional: Appearance: Normal appearance. HENT: Head: Normocephalic and atraumatic. Eyes: Conjunctiva/sclera: Conjunctivae normal. Cardiovascular: Rate and Rhythm: Normal rate and regular rhythm. Pulmonary: Effort: Pulmonary effort is normal. Breath sounds: Normal breath sounds. Musculoskeletal: Cervical back: Neck supple. Skin: General: Skin is warm and dry. Neurological: General: No focal deficit present. Mental Status: She is alert and oriented to person, place, and time. Psychiatric: Mood and Affect: Mood normal. Behavior: Behavior normal. Thought Content: Thought content normal. Judgment: Judgment normal. Assessment/Plan Diagnoses and all orders for this visit: Sterile pyuria - Basic Metabolic Panel; Future - CBC; Future - Urinalysis with Reflex Microscopic and Culture; Future Patent foramen ovale documented in this encounter [facility] Work Phone: 03-16-2023 Note HNO ID: [id number] Author: Graham Becerra V, DO Service: ? Author Type: Physician Type: Progress Notes Filed: 03/16/2023 10:57 AM Note Text: Gaby Courtney presents with pain and painful movement in both knees. Associated symptoms are, inflammation, stiffness. This is an ongoing problem. She has received cortisone injections in the past with good results and would like to discuss the option of doing injections today. PAST MEDICAL HISTORY Diagnosis Date - Depression - History of colon polyps - History of migraine - Hypercholesteremia - Insomnia - Osteopenia PAST SURGICAL HISTORY Procedure Laterality Date - COLONOSCOPY FLX DX W/COLLJ SPEC WHEN PFRMD 07/11/04 tubular adenoma - COLONOSCOPY FLX DX W/COLLJ SPEC WHEN PFRMD 10/07/2009 diverticulosis - COLONOSCOPY FLX DX W/COLLJ SPEC WHEN PFRMD 11/16/14 Colonoscopy - PAST SURGICAL HISTORY OF 1979 tubal ligation - PAST SURGICAL HISTORY OF 1997 lump removed from breast - PAST SURGICAL HISTORY OF Left tib-fib fx. L leg, ORIF left ankle - REMV CATARACT EXTRACAP,INSERT LENS Right 10/06/2021 SN60WF 20.0 D Current Outpatient Medications on File Prior to Visit Medication Sig - atorvastatin (LIPITOR) 40 mg tablet Take by mouth. - aspirin, enteric coated (ASPIRIN, ENTERIC COATED) 81 mg EC tablet Take by mouth. - venlafaxine XR (EFFEXOR XR) 150 mg 24 hr capsule Take 1 capsule by mouth once daily. - Calcium-Cholecalciferol, D3, 600 mg-10 mcg (400 unit) cap Take by mouth once daily. - multivitamins(DAILY MULTIVITAMIN TAB) Take one(1) tablet daily. - donepezil (ARICEPT) 5 mg tablet Take by mouth. (Patient not taking: Reported on 03/16/2023) - Alendronate-Vitamin D3 70 mg- 2,800 unit tab Take 1 tablet by mouth once each week. - traZODone (DESYREL) 100 mg tablet Take 1 tablet by mouth daily at bedtime. (Patient not taking: Reported on 03/16/2023) - GLUC/CHND/OM3/DHA/EPA/FISH/STR (GLUCOSAMINE CHONDROITIN PLUS ORAL) Take 1 tablet by mouth every other day. (Patient not taking: Reported on 03/16/2023) - Cholecalciferol, Vitamin D3, 25 mcg (1,000 unit) cap Take 1,000 Units by mouth once daily. (Patient not taking: Reported on 03/16/2023) - omega-3 fatty acids/vitamin e(FISH OIL 1,000 MG CAP) Take one(1) tablet daily. (Patient not taking: Reported on 03/16/2023) No current facility-administered medications on file prior to visit. Physical Exam Findings: General exam: Normal, Extremeties lateral knees show no redness, warmth, or significant effusion. There is tenderness with palpation along the medial joint lines bilaterally and over the medial condyles. There is crepitus with range of motion testing. X-rays from previous visit shows moderate to severe osteoarthritis bilateral knees. Assessment: Osteoarthritis bilateral knees Plan: Large Joint Arthro/Inj: bilateral knee joints Informed Consent Consent Obtained: Verbal [place] Protocol A moment to CARE was completed. SIGN IN TIME OUT 03/16/2023 10:56 AM The procedure site was prepped in the usual sterile fashion. Site: bilateral knee joints Medications (Right): 6 mg betamethasone acetate-betamethasone sodium phosphate 6 mg/mL Medications (Left): 6 mg betamethasone acetate-betamethasone sodium phosphate 6 mg/mL Anesthetics (Right): 4 mL lidocaine (PF) 10 mg/mL (1 %) Anesthetics (Left): 4 mL lidocaine (PF) 10 mg/mL (1 %) Outcome: Tolerated well, no immediate complications Post-injection instructions were reviewed with the patient and the patient voiced understanding of these instructions. Graham Becerra DO [facility] 03-16-2023 Note HNO ID: [id number] Author: Nerissa Ortiz Ma Service: ? Author Type: ? Type: Progress Notes Filed: 03/16/2023 10:57 AM Note Text: AMB ROOMING INTAKE FLOWSHEET DATA Patient would like to get an injection into the right knee. [facility] 03-16-2023 History of Present illness Narrative Associated Order(s): Large Joint Arthro/Inj: bilateral knee joints Post-Procedure Diagnose(s): Primary osteoarthritis of both knees Gaby Courtney presents with pain and painful movement in both knees. Associated symptoms are, inflammation, stiffness. This is an ongoing problem. She has received cortisone injections in the past with good results and would like to discuss the option of doing injections today. PAST MEDICAL HISTORY Diagnosis Date Depression History of colon polyps History of migraine Hypercholesteremia Insomnia Osteopenia PAST SURGICAL HISTORY Procedure Laterality Date COLONOSCOPY FLX DX W/COLLJ SPEC WHEN PFRMD 07/11/04 tubular adenoma COLONOSCOPY FLX DX W/COLLJ SPEC WHEN PFRMD 10/07/2009 diverticulosis COLONOSCOPY FLX DX W/COLLJ SPEC WHEN PFRMD 11/16/14 Colonoscopy PAST SURGICAL HISTORY OF 1979 tubal ligation PAST SURGICAL HISTORY OF 1997 lump removed from breast PAST SURGICAL HISTORY OF Left tib-fib fx. L leg, ORIF left ankle REMV CATARACT EXTRACAP,INSERT LENS Right 10/06/2021 SN60WF 20.0 D Current Outpatient Medications on File Prior to Visit Medication Sig atorvastatin (LIPITOR) 40 mg tablet Take by mouth. aspirin, enteric coated (ASPIRIN, ENTERIC COATED) 81 mg EC tablet Take by mouth. venlafaxine XR (EFFEXOR XR) 150 mg 24 hr capsule Take 1 capsule by mouth once daily. Calcium-Cholecalciferol, D3, 600 mg-10 mcg (400 unit) cap Take by mouth once daily. multivitamins(DAILY MULTIVITAMIN TAB) Take one(1) tablet daily. donepezil (ARICEPT) 5 mg tablet Take by mouth. (Patient not taking: Reported on 03/16/2023) Alendronate-Vitamin D3 70 mg- 2,800 unit tab Take 1 tablet by mouth once each week. traZODone (DESYREL) 100 mg tablet Take 1 tablet by mouth daily at bedtime. (Patient not taking: Reported on 03/16/2023) GLUC/CHND/OM3/DHA/EPA/FISH/STR (GLUCOSAMINE CHONDROITIN PLUS ORAL) Take 1 tablet by mouth every other day. (Patient not taking: Reported on 03/16/2023) Cholecalciferol, Vitamin D3, 25 mcg (1,000 unit) cap Take 1,000 Units by mouth once daily. (Patient not taking: Reported on 03/16/2023) omega-3 fatty acids/vitamin e(FISH OIL 1,000 MG CAP) Take one(1) tablet daily. (Patient not taking: Reported on 03/16/2023) No current facility-administered medications on file prior to visit. Physical Exam Findings: General exam: Normal, Extremeties lateral knees show no redness, warmth, or significant effusion. There is tenderness with palpation along the medial joint lines bilaterally and over the medial condyles. There is crepitus with range of motion testing. X-rays from previous visit shows moderate to severe osteoarthritis bilateral knees. Assessment: Osteoarthritis bilateral knees Plan: Large Joint Arthro/Inj: bilateral knee joints Informed Consent Consent Obtained: Verbal [place] Protocol A moment to CARE was completed. SIGN IN TIME OUT 03/16/2023 10:56 AM The procedure site was prepped in the usual sterile fashion. Site: bilateral knee joints Medications (Right): 6 mg betamethasone acetate-betamethasone sodium phosphate 6 mg/mL Medications (Left): 6 mg betamethasone acetate-betamethasone sodium phosphate 6 mg/mL Anesthetics (Right): 4 mL lidocaine (PF) 10 mg/mL (1 %) Anesthetics (Left): 4 mL lidocaine (PF) 10 mg/mL (1 %) Outcome: Tolerated well, no immediate complications Post-injection instructions were reviewed with the patient and the patient voiced understanding of these instructions. Graham Becerra DO AMB ROOMING INTAKE FLOWSHEET DATA Patient would like to get an injection into the right knee. documented in this encounter [facility] 02-02-2023 Note HNO ID: [id number] Author: Graham Becerra V, DO Service: ? Author Type: Physician Type: Progress Notes Filed: 02/02/2023 11:25 AM Note Text: Gaby Courtney presents with pain and painful movement in the knees. Last seen here 6 months ago. She states that she is doing pretty good overall. She reports that she has knee pain intermittently, but not really having much today. She admits that she has not been as active and avoids going up and down stairs a lot because of pain, but states that if she modifies her activity she does not have as much pain. PAST MEDICAL HISTORY Diagnosis Date Depression History of colon polyps History of migraine Hypercholesteremia Insomnia Osteopenia PAST SURGICAL HISTORY Procedure Laterality Date COLONOSCOPY FLX DX W/COLLJ SPEC WHEN PFRMD 07/11/04 tubular adenoma COLONOSCOPY FLX DX W/COLLJ SPEC WHEN PFRMD 10/07/2009 diverticulosis COLONOSCOPY FLX DX W/COLLJ SPEC WHEN PFRMD 11/16/14 Colonoscopy PAST SURGICAL HISTORY OF 1979 tubal ligation PAST SURGICAL HISTORY OF 1997 lump removed from breast PAST SURGICAL HISTORY OF Left tib-fib fx. L leg, ORIF left ankle REMV CATARACT EXTRACAP,INSERT LENS Right 10/06/2021 SN60WF 20.0 D Current Outpatient Medications on File Prior to Visit Medication Sig donepezil (ARICEPT) 5 mg tablet Take by mouth. atorvastatin (LIPITOR) 40 mg tablet Take by mouth. aspirin, enteric coated (ASPIRIN, ENTERIC COATED) 81 mg EC tablet Take by mouth. Alendronate-Vitamin D3 70 mg- 2,800 unit tab Take 1 tablet by mouth once each week. venlafaxine XR (EFFEXOR XR) 150 mg 24 hr capsule Take 1 capsule by mouth once daily. traZODone (DESYREL) 100 mg tablet Take 1 tablet by mouth daily at bedtime. GLUC/CHND/OM3/DHA/EPA/FISH/STR (GLUCOSAMINE CHONDROITIN PLUS ORAL) Take 1 tablet by mouth every other day. Calcium-Cholecalciferol, D3, 600 mg-10 mcg (400 unit) cap Take by mouth once daily. Cholecalciferol, Vitamin D3, 25 mcg (1,000 unit) cap Take 1,000 Units by mouth once daily. multivitamins(DAILY MULTIVITAMIN TAB) Take one(1) tablet daily. omega-3 fatty acids/vitamin e(FISH OIL 1,000 MG CAP) Take one(1) tablet daily. No current facility-administered medications on file prior to visit. Physical Exam Findings: General exam: Normal, Extremeties Lateral knees show no significant redness, swelling, or rashes. There is mild crepitus with palpation upon range of motion testing. No instability noted. Minimal discomfort with palpation over the joint lines. Assessment: Osteoarthritis bilateral knees Plan: We discussed treatment options today. In the past she has received corticosteroid injections. She states that she does not think her knees are hurting enough today to proceed with injections. She would like to continue with conservative treatment and if she has a flareup of pain she will call for another appointment to get injections done. Graham Becerra, [facility] 02-02-2023 Note HNO ID: [id number] Author: Ida Maynard Service: ? Author Type: ? Type: Progress Notes Filed: 02/02/2023 11:25 AM Note Text: Patient presents with: Right Knee Pain: 6 months post visit with R knee injection given Patient presents with intermittent right knee pain. She reports pain with activity. She takes no pain medication. She reports about 4 months relief with the previous injection in the right knee. AMB ROOMING INTAKE FLOWSHEET DATA Pain Pain Level: 2 Pain Location: Knee-Right Description: Aching, Dull Duration Amount of Time: 2 Duration Units: Months Frequency: Intermittent Intervention/Comfort measure: Medication [facility] 02-02-2023 Note HNO ID: [id number] Author: Rowena Hameed RT(R) Service: ? Author Type: Technologist Type: Progress Notes Filed: 02/02/2023 2:56 PM Note Text: Radiology Service Progress Note PATIENT NAME: Gaby Courtney DATE OF SERVICE: February 02, 2023 TIME: 2:56 PM PATIENT IDENTITY VERIFICATION COMPLETED USING TWO (2) IDENTIFIERS: Name and Date of confirmed by patient verbally. FALL SCREENING: Has the patient had 2 falls in the last year or 1 fall with injury or currently using an Ambulatory Assistive Device (Walker, Cane, Wheelchair, Crutches, etc.)? No PATIENT GENDER DATA: Female. status: : No status: NO. PATIENT RELEVANT IMPLANT DATA REVIEWED: Not Applicable RADIOLOGY DEPARTMENT: General X-ray: Exam(s) Completed: Lower Extremity X-Ray(s): Knee, AP / Lat / Tunne / Merchant Right and Wt. Bearing PERIPHERAL IV DATA: Not applicable SIGNED BY: Rowena Hameed RT(R) February 02, 2023 2:56 PM [facility] 02-02-2023 History of Present illness Narrative Gaby Courtney presents with pain and painful movement in the knees. Last seen here 6 months ago. She states that she is doing pretty good overall. She reports that she has knee pain intermittently, but not really having much today. She admits that she has not been as active and avoids going up and down stairs a lot because of pain, but states that if she modifies her activity she does not have as much pain. PAST MEDICAL HISTORY Diagnosis Date Depression History of colon polyps History of migraine Hypercholesteremia Insomnia Osteopenia PAST SURGICAL HISTORY Procedure Laterality Date COLONOSCOPY FLX DX W/COLLJ SPEC WHEN PFRMD 07/11/04 tubular adenoma COLONOSCOPY FLX DX W/COLLJ SPEC WHEN PFRMD 10/07/2009 diverticulosis COLONOSCOPY FLX DX W/COLLJ SPEC WHEN PFRMD 11/16/14 Colonoscopy PAST SURGICAL HISTORY OF 1979 tubal ligation PAST SURGICAL HISTORY OF 1997 lump removed from breast PAST SURGICAL HISTORY OF Left tib-fib fx. L leg, ORIF left ankle REMV CATARACT EXTRACAP,INSERT LENS Right 10/06/2021 SN60WF 20.0 D Current Outpatient Medications on File Prior to Visit Medication Sig donepezil (ARICEPT) 5 mg tablet Take by mouth. atorvastatin (LIPITOR) 40 mg tablet Take by mouth. aspirin, enteric coated (ASPIRIN, ENTERIC COATED) 81 mg EC tablet Take by mouth. Alendronate-Vitamin D3 70 mg- 2,800 unit tab Take 1 tablet by mouth once each week. venlafaxine XR (EFFEXOR XR) 150 mg 24 hr capsule Take 1 capsule by mouth once daily. traZODone (DESYREL) 100 mg tablet Take 1 tablet by mouth daily at bedtime. GLUC/CHND/OM3/DHA/EPA/FISH/STR (GLUCOSAMINE CHONDROITIN PLUS ORAL) Take 1 tablet by mouth every other day. Calcium-Cholecalciferol, D3, 600 mg-10 mcg (400 unit) cap Take by mouth once daily. Cholecalciferol, Vitamin D3, 25 mcg (1,000 unit) cap Take 1,000 Units by mouth once daily. multivitamins(DAILY MULTIVITAMIN TAB) Take one(1) tablet daily. omega-3 fatty acids/vitamin e(FISH OIL 1,000 MG CAP) Take one(1) tablet daily. No current facility-administered medications on file prior to visit. Physical Exam Findings: General exam: Normal, Extremeties Lateral knees show no significant redness, swelling, or rashes. There is mild crepitus with palpation upon range of motion testing. No instability noted. Minimal discomfort with palpation over the joint lines. Assessment: Osteoarthritis bilateral knees Plan: We discussed treatment options today. In the past she has received corticosteroid injections. She states that she does not think her knees are hurting enough today to proceed with injections. She would like to continue with conservative treatment and if she has a flareup of pain she will call for another appointment to get injections done. Graham Becerra DO Patient presents with: Right Knee Pain: 6 months post visit with R knee injection given Patient presents with intermittent right knee pain. She reports pain with activity. She takes no pain medication. She reports about 4 months relief with the previous injection in the right knee. AMB ROOMING INTAKE FLOWSHEET DATA Pain Pain Level: 2 Pain Location: Knee-Right Description: Aching, Dull Duration Amount of Time: 2 Duration Units: Months Frequency: Intermittent Intervention/Comfort measure: Medication documented in this encounter [facility] 01-09-2023 History of Present illness Narrative Images from the original note were not included. [facility] [place] [facility] [address] [place] [address] Dept: [phone] Dept Loc: [phone] Visit type: [facility] Family Summary Conference Reason for Visit: Memory Loss Visit Date: 01/12/2023 Assessment and Plan 1. Mixed Alzheimer's and vascular dementia (HCC) 2. CVD (cerebrovascular disease) 3. Insomnia, unspecified type We reviewed the diagnosis of mild stage Mixed Alzheimer's and Vascular Dementia, course, prognosis and treatment. Discussed the option of medication. Opted to start continue Namenda as prescribed by PCP . Would NOT recommend increasing Namenda XR dose more than current dose, this is an appropriate renal dose based on pt's calculated CrCl. Insomnia- pt sleeping well despite being off Trazodone. Continue sleep hygiene. If insomnia reoccurs then can consider melatonin or another agent. Will continue to monitor. Reviewed management of the following behavioral symptoms: agitation, anxiety, depression, indifference/social withdrawal, and poor insight into own memory loss/functional deficits Discussed safety management: increased supervision Reviewed the importance of caregiver stress and support through following means: Alzheimer's Association support Reviewed advanced care plan. Already has living will and POAs completed Educational information and handouts on the above was provided to the caregiver. Follow up in about 6 months (around 07/12/2023). Subjective Alfonzo Courtney is a 82 y.o. female who returns today for a Family Summary Conference to review the care plan based on the comprehensive geriatric assessment completed at the last appointment. Initially seen in 10/2022 for memory loss x 5 years, worse over past year, [place] 17 (MIS 5), CDT 5, PHQ 0, concern for mild Alzheimer's disease, at risk for vascular brain changes due to h/o TIA in 2019, labs and MRI brain ordered to complete work-up. Patient update: Pt is here with her daughter Luz, other 2 daughters are joining via phone. No interval falls, ED visits, or hospitalizations. Saw PCP- started on Namenda, Trazodone was stopped. No trouble falling asleep or staying asleep since Trazodone was stopped. No Known Allergies Current Outpatient Medications Medication Sig Dispense Refill aspirin 81 MG EC tablet Take 81 mg by mouth daily. Memantine HCl ER (Namenda XR) 14 MG capsule sustained-release 24 hr Take 1 capsule by mouth daily. Ascorbic Acid (vitamin C) 100 MG tablet Take 100 mg by mouth daily. atorvastatin (Lipitor) 40 MG tablet Take 40 mg by mouth daily. calcium carbonate (Os-Zhen) 1250 (500 Ca) MG chewable tablet Chew 1 tablet daily. cyanocobalamin (Vitamin B-12) 100 MCG tablet Take 100 mcg by mouth daily. magnesium oxide (Mag-Ox) 400 mg tablet 400 mg daily. Multiple Vitamins-Minerals (multivitamin with minerals) tablet Take 1 tablet by mouth daily. venlafaxine XR (Effexor XR) 150 MG 24 hr capsule Take 150 mg by mouth daily. Do not crush or chew. zinc gluconate 50 MG tablet Take 50 mg by mouth daily. No current facility-administered medications for this visit. 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 High cholesterol Mini stroke TIA 05/2019 Mixed Alzheimer's and vascular dementia (HCC) Mixed incontinence Osteoarthritis Osteoporosis Renal insufficiency Sleep difficulties Subclinical hypothyroidism Social History Tobacco Use Smoking status: Never Smokeless tobacco: Never Substance Use Topics Alcohol use: Yes Comment: rarely Past Surgical History: Procedure Laterality Date FRACTURE SURGERY Left ankle TUBAL LIGATION 1966 Family History Problem Relation Name Age of Onset Breast cancer Mother Depression Father Dementia Sister Heart disease Brother Family Status Relation Name Status Mother (Not Specified) Father (Not Specified) Sister (Not Specified) Brother (Not Specified) Objective Wt Readings from Last 3 Encounters: 01/09/23 127 lb (57.6 kg) 11/14/22 125 lb 6.4 oz (56.9 kg) No physical exam performed Discussion only Data Reviewed and Summarized Problems and recommendations from initial assessment reviewed, Medications reviewed, Recent laboratory tests reviewed, and Recent diagnostic imaging reviewed Labs: No results found for: WBC, HGB, HCT, MCV, PLT No results found for: NA, K, CL, CO2, BUN, CREATININE, GLUCOSE, CALCIUM, PROT, BILITOT, ALKPHOS, AST, ALT, LABGLOM, AGRATIO, GLOB No results found for: TSH No results found for: FOLATE No results found for: [id number] No results found for: RPR Imaging: Brain MRI reviewed, in Media files- Impression: no acute infarcts. Moderate chronic involution and white matter changes. Testing: I reviewed the [place] [facility] from the initial assessment with the patient and family. Total score was 17 out of 30. I spent total time of 31 minutes face to face with the patient and/or family discussing the diagnosis and importance of compliance with the treatment plan as well as documenting on the day of the visit. In addition, that total time includes the following: -Reviewing previous notes, -Reviewing labs, -Reviewing previous cognitive tests, -Obtaining and/or reviewing separately obtained history, -Communicating results to the patient/family/caregiver, -Counseling/educating the patient/family/caregiver, -Documenting clinical information in the patients electronic record, and -Coordination of care for the patient Interval history since last appointment: Any visits to primary care provider? Yes Any visits to the emergency department/hospital? No Any medication changes? Yes Any falls? No Family present: patient, daughter Luz on phone daughters Tracy and Laura Educational materials reviewed and provided at today's visit: Memory/Cognitive Ability Next Steps After an Alzheimer's Diagnosis Alzheimer's Association info/hotline 10 Tips to Keeping Independent Memory Tips (mild) 5Ms Dealing with Dementia Stages for Memory Loss 10 Ways to Love Your Brain Exercise/Activities Exercise Age Page Communication/Behaviors Communication - All Stages Communication Tips Redirecting Confabulation Diet Healthy Nutrition for Older Adults - [facility] Injury Prevention/Home Safety [facility] Home Safety Checklist Falls Prevention Conversation Guide for Caregivers Medications Medication Safety/Dispensers Driving Driving And Older Adults - [facility] Driving Warning Signs documented in this encounter [facility] 01-09-2023 Instructions SAM Horta CNP - 01/09/2023 3:45 PM EDT Ms. Courtney was seen today for memory. Today you were diagnosed with mild stage mixed Alzheimer's and vascular dementia. Mild stage, can be stable for long periods of time. Recommend continuing Namenda XR as prescribed by your primary care provider. The goal of this medication is to help slow down the progression of memory loss. Based on your kidney function (creatinine clearance), I would NOT recommend increasing this dose any more. Recommend restarting baby Aspirin to help decrease risk of further vascular events, which could accelerate memory loss. Avoiding medications that cause confusion and falls - Tylenol PM, Benadryl Recommend physical, mental, and social activity - [facility], Silver Sneakers. Recommend routines, schedules, and organization. Recommend getting adequate sleep and eating balanced diet. Continue regular visits with primary care provider to maintain chronic health conditions. 5 M s - assistance/supervision with medications, medical care, meals, money, mobility (driving, falls). Follow-up visit in 6 months for repeat memory testing/routine visit. documented in this encounter [facility] 12-05-2022 Note HNO ID: [id number] Author: Rashel Agosto OD Service: ? Author Type: ROCKET [employer]OR MECHANIC Type: Progress Notes Filed: 12/05/2022 10:30 AM Note Text: ASSESSMENT/PLAN: 1. Vitreous floaters of both eyes - ICD9: 379.24, ICD10: H43.393 (primary diagnosis) 2. PVD (posterior vitreous detachment), bilateral - ICD9: 379.21, ICD10: H43.813 Vitreal floaters stable both eyes. Retinas flat and intact with no apparent retinal tear or traction. Discussed symptoms of retinal tear/detachment and if seen patient will return to clinic without delay. 3. Diplopia - ICD9: 368.2, ICD10: H53.2 Continue to monitor. Did not notice any eye turn or tropia at this visit. Gaby is not concerned about it at this time. If it increases in frequency or duration, return to the office. Recommended yearly exams. Rashel Agosto, ANNE I have confirmed and edited as necessary the relevant ophthalmic history, ROS, and the neuro exam findings as obtained by others. [facility] 12-05-2022 Instructions Rashel Agosto, ANNE - 12/05/2022 10:29 AM EDT ASSESSMENT/PLAN: 1. Vitreous floaters of both eyes - ICD9: 379.24, ICD10: H43.393 (primary diagnosis) 2. PVD (posterior vitreous detachment), bilateral - ICD9: 379.21, ICD10: H43.813 Vitreal floaters stable both eyes. Retinas flat and intact with no apparent retinal tear or traction. Discussed symptoms of retinal tear/detachment and if seen patient will return to clinic without delay. 3. Diplopia - ICD9: 368.2, ICD10: H53.2 Continue to monitor. Did not notice any eye turn or tropia at this visit. Gaby is not concerned about it at this time. If it increases in frequency or duration, return to the office. Recommended yearly exams. documented in this encounter [facility] 12-05-2022 History of Present illness Narrative ASSESSMENT/PLAN: 1. Vitreous floaters of both eyes - ICD9: 379.24, ICD10: H43.393 (primary diagnosis) 2. PVD (posterior vitreous detachment), bilateral - ICD9: 379.21, ICD10: H43.813 Vitreal floaters stable both eyes. Retinas flat and intact with no apparent retinal tear or traction. Discussed symptoms of retinal tear/detachment and if seen patient will return to clinic without delay. 3. Diplopia - ICD9: 368.2, ICD10: H53.2 Continue to monitor. Did not notice any eye turn or tropia at this visit. Gaby is not concerned about it at this time. If it increases in frequency or duration, return to the office. Recommended yearly exams. Rashel Agosto, OD I have confirmed and edited as necessary the relevant ophthalmic history, ROS, and the neuro exam findings as obtained by others. documented in this encounter [facility] 11-28-2022 Telephone encounter Note Mailed out. [facility] 11-28-2022 Miscellaneous Notes Mailed out. Name of caller: Luz Contact phone number: [phone] Relationship to Patient: daughter Provider: Rashaun Diaz Practice: Senior services Chief Complaint/Reason for Call: daughter would like lab orders mail to her as she is going to take mother to [facility]. [address] [facility] [address] she is going to have mri done there as well so print out the order for that as well. Thank you Best time of day caller can be reached: any Patient advised that office/PCP has 24-48 business hours to return their call: Yes documented in this encounter [facility] 11-28-2022 Telephone encounter Note Name of caller: Luz Contact phone number: [phone] Relationship to Patient: daughter Provider: Rashaun Diaz Practice: Senior services Chief Complaint/Reason for Call: daughter would like lab orders mail to her as she is going to take mother to [facility]. [address] [facility] [address] she is going to have mri done there as well so print out the order for that as well. Thank you Best time of day caller can be reached: any Patient advised that office/PCP has 24-48 business hours to return their call: Yes [facility] 11-14-2022 Note Ms. Courtney was se en today for memory/geriatric evaluation. Memory testing was below expected for age/education level. Before I can diagnose a memory problem, I need to rule out that something else isn't causing it. Blood work was ordered today to be drawn at the hospital lab or any lab that is convenient to you. I will call you with the lab results once they are available. Our office staff will call you to schedule head imaging (MRI). Return in 4-6 weeks for summary visit. [facility] 11-14-2022 History of Present illness Narrative Images from the original note were not included. [facility] [address] [place] [address] Dept: [phone] Dept Loc: [phone] Visit type: [facility] Initial Assessment Visit Date: 11/14/2022 Reason for Visit: Memory Loss Assessment and Plan 1. Memory loss - Vitamin B12 - Folate - TSH - MR brain wo contrast 2. History of TIA (transient ischemic attack) - MR brain wo contrast - Mental status change with cognitive deficits in the following areas: Visuospatial/executive function, attention, language, abstraction, delayed recall (MIS 5), orientation which have been slowly progressive over time with subsequent impairment in function. History and exam are concerning for Alzheimer's Dementia, mild stage. H/o TIA puts pt at increased risk of vascular component to memory loss. Have ordered labs and brain MRI to complete the assessment. Will review results at the Family Summary Conference. Follow up in about 4 weeks (around 12/12/2022) for summary visit. Subjective HPI: Alfonzo Courtney is a 82 y.o. female who presents to the [facility] for a comprehensive geriatric assessment. The patient is new to me. Referred to office for memory loss. Tried Donepezil but pt didn't tolerate after taking it 1 day. Provider discussed starting Namenda. Pt resistant to conversations re: memory loss. PMH: insomnia, mild depression, mixed incontinence, OA, osteoporosis, subclinical hypothyroidism, parietal lobe infarct, lumpectomy (no CA), TIA 05/2019, renal insufficiency History obtained from caregiver(s): Pt is here with her daughter Luz. Pt came here about 5 years ago for an evaluation. Went to [place] office for this. Short term memory loss: Examples of difficulties patient is experiencing: - Repetitive with stories - Forgetful about plans/conversations within the same day or a couple of days - Not sure if pt is taking her medication regularly, pt won't give up - Dtr Luz has been paying pt's bills for the past 2 years, will send a check to pay a medical bill when she's been told not to - Has hearing aids but won't wear them, won't admit to people that she has a hearing problem - Still driving, will drive locally to the [employer] or [employer], hasn't left [place] by herself, had cataracts removed last summer, nobody has driven with her, hasn't gotten lost as far as family knows, had trouble finding her car in the [employer] parking lot last week but that's the first time pt has mentioned it - Gets frustrated, gets angry with her one daughter Tracy when she argues with pt Severity (as seen by the provider based on caregiver history): mild, Duration- symptoms started around 5 years ago, worse over the past year, Timing- slowly progressive, all day everyday, worse at night, cognitive changes are stable day to day, worse when she's out of her normal routine or has a foggy day Context- (give details of any yes answers) history of stroke- Yes - TIA in 2019, symptoms- R hand weakness, couldn't hold her cup at breakfast, weakness resolved, went to [facility] for a few days, then went home; no increased progression of memory loss immediately after TIA , history of head trauma- No, history of seizures- No, history of toxin exposures- No, history of hospitalization or surgery that made memory worse- No History of COVID-19- No History of cancer? - No Hearing Loss? - Yes - doesn't wear hearing aids Hearing Aids? -yes Associated signs and symptoms- delusions or hallucinations- No paranoia- No Trouble sleeping? Yes - takes Trazodone to help with sleep and it does help her REM-related sleep disorder- unknown sleeps alone History obtained from patient: Feeling fine. Not having pain. Sometimes forgets to take her medicine, then remembers later in the day. Mood- good. Has been through depression before, had a break down about 20 years ago, medicine helps her mood. Denies feeling depressed or anxious. Appetite- fine. Sleeping- sleeping well with Trazodone. Trazodone helps her stay asleep. Before she was waking up in the middle of the night and couldn't get back to sleep. Hearing Screen: HHIE-S: Able to identify : yes Current events: Current President? Danya Why are we wearing masks? MARKIE Reviewed progress notes completed by CLARK COOK)and social work. No Known Allergies Current Outpatient Medications Medication Sig Dispense Refill Ascorbic Acid (vitamin C) 100 MG tablet Take 100 mg by mouth daily. atorvastatin (Lipitor) 40 MG tablet Take 40 mg by mouth daily. calcium carbonate (Os-Zhen) 1250 (500 Ca) MG chewable tablet Chew 1 tablet daily. cyanocobalamin (Vitamin B-12) 100 MCG tablet Take 100 mcg by mouth daily. magnesium oxide (Mag-Ox) 400 mg tablet 400 mg daily. Multiple Vitamins-Minerals (multivitamin with minerals) tablet Take 1 tablet by mouth daily. traZODone (Desyrel) 50 MG tablet Take 50 mg by mouth Nightly. venlafaxine XR (Effexor XR) 150 MG 24 hr capsule Take 150 mg by mouth daily. Do not crush or chew. zinc gluconate 50 MG tablet Take 50 mg by mouth daily. No current facility-administered medications for this visit. 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 High cholesterol Mini stroke TIA 05/2019 Mixed incontinence Osteoarthritis Osteoporosis Renal insufficiency Sleep difficulties Subclinical hypothyroidism Social History Tobacco Use Smoking status: Never Smokeless tobacco: Never Substance Use Topics Alcohol use: Yes Comment: rarely Past Surgical History: Procedure Laterality Date FRACTURE SURGERY Left ankle TUBAL LIGATION 1966 Family History Problem Relation Name Age of Onset Breast cancer Mother Depression Father Dementia Sister Heart disease Brother Family Status Relation Name Status Mother (Not Specified) Father (Not Specified) Sister (Not Specified) Brother (Not Specified) Objective Vitals: 11/14/22 1131 11/14/22 1132 BP: (!) 147/72 (!) 147/78 BP Location: Left arm Left arm Patient Position: Sitting Standing BP Cuff Size: Adult long Adult long Pulse: 90 91 Weight: 125 lb 6.4 oz (56.9 kg) Wt Readings from Last 3 Encounters: 11/14/22 125 lb 6.4 oz (56.9 kg) Physical Exam Constitutional: General: She is not in acute distress. Appearance: She is not ill-appearing. Comments: Elderly female. Pleasant and cooperative. Well kempt, well nourished. HENT: Head: Normocephalic. Comments: Wears glasses. No hearing aids. LA JOLLA at times Right Ear: External ear normal. Left Ear: External ear normal. Cardiovascular: Rate and Rhythm: Normal rate and regular rhythm. Heart sounds: Normal heart sounds. No murmur heard. Pulmonary: Effort: Pulmonary effort is normal. No respiratory distress. Breath sounds: Normal breath sounds. Abdominal: General: Abdomen is flat. Bowel sounds are normal. Palpations: Abdomen is soft. Tenderness: There is no abdominal tenderness. Musculoskeletal: General: No swelling (BLE). Comments: Muscle strength 4/5 BLE, 4/5 BUE. Gait- upright posture. Normal step length, irma and clearance. Balance intact. No assistive device. Normal arm swing. Skin: General: Skin is warm and dry. Neurological: Cranial Nerves: Cranial nerve deficit (hearing loss) present. Sensory: No sensory deficit. Motor: Weakness (see MS exam) present. Coordination: Coordination normal. Gait: Gait (see MS exam) normal. Comments: Alert and oriented x 2 (to self and time, doesn't know place). Knows current events and 911. Speech clear and appropriate. Follows commands. No tremors BUE. No cogwheeling rigidity BUE. Psychiatric: Comments: Appropriate affect and behavior. Data Reviewed and Summarized Old records reviewed and summarized here: labs- CBC, CMP done 06/2022 Labs: No results found for: WBC, HGB, HCT, MCV, PLT No results found for: NA, K, CL, CO2, BUN, CREATININE, GLUCOSE, CALCIUM, PROT, BILITOT, ALKPHOS, AST, ALT, LABGLOM, AGRATIO, GLOB No results found for: TSH No results found for: FOLATE No results found for: [id number] No results found for: RPR Testing: The following tests were performed at today's visit and scanned in to the chart: MoCA score: 17, MIS score: 5 Clock drawing score: 5 PHQ-9 score: 0 SANDY score: not done I independently reviewed the [facility] from 11/14/2022. Test scanned in to the chart. I spent total time of 61 minutes face to face with the patient and/or family discussing the diagnosis and importance of compliance with the treatment plan as well as documenting on the day of the visit. In addition, that total time includes the following: -Reviewing previous notes, -Reviewing labs, -Obtaining and/or reviewing separately obtained history, -Ordering prescription medications, tests and procedures, -Counseling/educating the patient/family/caregiver, -Documenting clinical information in the patients electronic record, -Coordination of care for the patient, and -Performing a medically appropriate exam and/or evaluation Review of Systems Constitutional: Negative for appetite change, fatigue, fever and unexpected weight change. HENT: Positive for dental problem and hearing loss. Negative for trouble swallowing. Eyes: Negative for visual disturbance. Respiratory: Negative for cough and shortness of breath. Cardiovascular: Negative for leg swelling. Gastrointestinal: Negative for constipation and diarrhea. Genitourinary: Negative for difficulty urinating and dysuria. Musculoskeletal: Positive for arthralgias. Negative for back pain and gait problem. Neurological: Positive for weakness. Negative for tremors and speech difficulty. Psychiatric/Behavioral: Negative for agitation, confusion, dysphoric mood, hallucinations and sleep disturbance. The patient is not nervous/anxious. 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 Activities: reads, watches tv, gets together weekly with friend group, goes out to eat with daughter once per week Exercise: minimal Finances: own 3 homes Healthcare Power of Rfid Systems Engineer: Yes: lisa Molina Financial Power of Rfid Systems Engineer: Yes: lisa Molina Living Will: Yes Guardian: No Code Status: Full Code Primary Caregiver: patient is independent, daughters assist Current care plan/supervision: lives right beside both daughters, Tracy and Laura- both are there daily, lisa Escobar sees her 2-3 times per week Community resources: None Caregiver stressors: denies Goals for care: evaluate memory As a Caregiver, What Matters Most to You: Patient remains independent/in community >>11/14/22 Repetitive, tells stories repeatedly, gets frustrated with family members Functional Status (I: Independent, A: Assisted, D: Dependent) ADLs I A D Notes Bathing [x] [] [] No issues Dressing [x] [] [] No issues Toileting [x] [] [] No issues Transfers [x] [] [] No issues Feeding [x] [] [] No issues Ambulation [x] [] [] Refuses cane or walker Assistive devices: Grab bars IADLs I A D Telephone [] [x] [] Has missed many doctor appointments, needs help managing appointments, needs reminders, can call and answer phone, family getting more involved setting up appointments, needs reminders Transportation [] [x] [] Driving safety concerns: only driving locally to [employer] or [employer], no one riding with her, couldn't find her car in parking lot, hasn't gotten lost Shopping [] [x] [] Patient writes things on a list, daughter has taken her before, needs assistance to stay on task, trying to buy things already in cart Meal prep [] [x] [] Still cooking, not forgetting to eat, daughter Laura is with her at every dinner, not drinking water enough Housework [x] [] [] Still cleaning Medications [] [x] [] No one monitoring, unsure if she is missing medications Finances [] [] [x] Daughter Luz pays bills, patient will still pay an occasional thing even though daughter has told her not to documented in this encounter [facility] 11-14-2022 Instructions SAM Horta CNP - 11/14/2022 10:45 AM EDT Ms. Courtney was seen today for memory/geriatric evaluation. Memory testing was below expected for age/education level. Before I can diagnose a memory problem, I need to rule out that something else isn't causing it. Blood work was ordered today to be drawn at the hospital lab or any lab that is convenient to you. I will call you with the lab results once they are available. Our office staff will call you to schedule head imaging (MRI). Return in 4-6 weeks for summary visit. documented in this encounter [facility] 09-14-2022 History of Present illness Narrative Subjective Patient ID: Alfonzo Courtney is a 82 y.o. female who presents for mdck. HPI Tracy Jonesr who is HPOA and also home health nurse Letter from family listing severy memory and behavioral issues due to memory Does crossword puzzle every am In the past pt has denied cognitive issues however 1 year ago MOCA score was 22 and today 20 Pt is argumentative about the test and states she was close on multiple items H/O stroke Tried aricept for 1 day in past and did not like it Will to try Namenda but very dismissive and irritated about conversation of memory Recommend pill box for both am and pm meds She admitts she may forget to take mediacations and may or may not take a second dose. States her antidepressants are working fine. Consider decreasing trazodone due to anticholinergic Review of Systems Objective BP 120/70 Pulse 89 Ht 1.568 m (5' 1.73 ) Wt 56.4 kg (124 lb 4.8 oz) BMI 22.93 kg/m Physical Exam Vitals reviewed. Constitutional: Appearance: Normal appearance. HENT: Head: Normocephalic and atraumatic. Cardiovascular: Rate and Rhythm: Regular rhythm. Skin: General: Skin is warm and dry. Neurological: General: No focal deficit present. Mental Status: She is alert and oriented to person, place, and time. Psychiatric: Mood and Affect: Mood normal. Behavior: Behavior normal. Assessment/Plan Diagnoses and all orders for this visit: Mild vascular dementia with agitation (CMS/HCC) - memantine 7 mg capsule,sprinkle,ER 24hr; Take 7 mg by mouth once daily. Other orders - Follow Up In Primary Care; Future documented in this encounter [facility] Work Phone: 09-13-2022 Telephone encounter Note Scheduled 11/14. [facility] 09-13-2022 Miscellaneous Notes Scheduled 11/14. Name of caller: Luz Contact phone number: [phone] Relationship to Patient: daughter Provider: new patient Practice: senior services Chief Complaint/Reason for Call: Luz called asking to make an apt for Alfonzo for her memory and mental issues. Please call to schedule Best time of day caller can be reached: any Patient advised that office/PCP has 24-48 business hours to return their call: no documented in this encounter [facility] 09-11-2022 Telephone encounter Note Name of caller: Luz Contact phone number: [phone] Relationship to Patient: daughter Provider: new patient Practice: [facility] Chief Complaint/Reason for Call: Luz called asking to make an apt for Alfonzo for her memory and mental issues. Please call to schedule Best time of day caller can be reached: any Patient advised that office/PCP has 24-48 business hours to return their call: no [facility] 08-19-2022 Miscellaneous Notes Name of caller: Luz Contact phone number: [phone] Relationship to Patient: daughter Provider: new patient Practice: [facility] Chief Complaint/Reason for Call: Luz called asking to make an apt for [place] for her memory and mental issues. Please call to schedule Best time of day caller can be reached: any Patient advised that office/PCP has 24-48 business hours to return their call: no documented in this encounter [facility] 08-04-2022 Note HNO ID: [id number] Author: Graham Becerra V, DO Service: ? Author Type: Physician Type: Progress Notes Filed: 08/04/2022 1:33 PM Note Text: Gaby Courtney presents with pain and painful movement in the right knee. She has osteoarthritis of the right knee. She was last seen here 4 months ago and at that time received gel 1 injection which she states has helped with symptoms. She does however continue to have pain with walking particularly up and down stairs. The pain is rated as 6 on a scale of 1-10 walking and standing. PAST MEDICAL HISTORY Diagnosis Date Depression History of colon polyps History of migraine Hypercholesteremia Insomnia Osteopenia PAST SURGICAL HISTORY Procedure Laterality Date COLONOSCOPY FLX DX W/COLLJ SPEC WHEN PFRMD 07/11/04 tubular adenoma COLONOSCOPY FLX DX W/COLLJ SPEC WHEN PFRMD 10/07/2009 diverticulosis COLONOSCOPY FLX DX W/COLLJ SPEC WHEN PFRMD 11/16/14 Colonoscopy PAST SURGICAL HISTORY OF 1979 tubal ligation PAST SURGICAL HISTORY OF 1997 lump removed from breast PAST SURGICAL HISTORY OF Left tib-fib fx. L leg, ORIF left ankle REMV CATARACT EXTRACAP,INSERT LENS Right 10/06/2021 SN60WF 20.0 D Current Outpatient Medications on File Prior to Visit Medication Sig venlafaxine XR (EFFEXOR XR) 150 mg 24 hr capsule Take 1 capsule by mouth once daily. donepezil (ARICEPT) 5 mg tablet Take by mouth. atorvastatin (LIPITOR) 40 mg tablet Take by mouth. aspirin, enteric coated (ASPIRIN, ENTERIC COATED) 81 mg EC tablet Take by mouth. Alendronate-Vitamin D3 70 mg- 2,800 unit tab Take 1 tablet by mouth once each week. traZODone (DESYREL) 100 mg tablet Take 1 tablet by mouth daily at bedtime. GLUC/CHND/OM3/DHA/EPA/FISH/STR (GLUCOSAMINE CHONDROITIN PLUS ORAL) Take 1 tablet by mouth every other day. Calcium-Cholecalciferol, D3, 600 mg-10 mcg (400 unit) cap Take by mouth once daily. Cholecalciferol, Vitamin D3, 25 mcg (1,000 unit) cap Take 1,000 Units by mouth once daily. multivitamins(DAILY MULTIVITAMIN TAB) Take one(1) tablet daily. omega-3 fatty acids/vitamin e(FISH OIL 1,000 MG CAP) Take one(1) tablet daily. No current facility-administered medications on file prior to visit. Physical Exam Findings: General exam: Normal, Extremeties right knee tenderness over the anterior joint line and in the popliteal fossa. No redness or warmth to touch is noted. Assessment: Severe arthritis right knee Plan: Large Joint Arthro/Inj: R knee joint Informed Consent Consent Obtained: Verbal [place] Protocol A moment to CARE was completed. SIGN IN TIME OUT Intended patient and procedure match the source document(s). 08/04/2022 1:32 PM Site: R knee joint Medications: 6 mg betamethasone acetate-betamethasone sodium phosphate 6 mg/mL Anesthetics: 4 mL lidocaine (PF) 10 mg/mL (1 %) Graham Becerra DO [facility] 08-04-2022 Note HNO ID: [id number] Author: Shanice Coleman RN Service: ? Author Type: Registered Nurse Type: Progress Notes Filed: 08/04/2022 1:33 PM Note Text: Patient presents with: Knee Pain: Right; cortisone injection AMB ROOMING INTAKE FLOWSHEET DATA Pain Pain Level: 6 Pain Location: Knee-Right Description: Aching Duration Amount of Time: 4 Duration Units: Months Frequency: Continuous Intervention/Comfort measure: Medication [facility] 08-04-2022 History of Present illness Narrative Associated Order(s): Large Joint Arthro/Inj: R knee joint Post-Procedure Diagnose(s): Primary osteoarthritis of right knee Gaby Courtney presents with pain and painful movement in the right knee. She has osteoarthritis of the right knee. She was last seen here 4 months ago and at that time received gel 1 injection which she states has helped with symptoms. She does however continue to have pain with walking particularly up and down stairs. The pain is rated as 6 on a scale of 1-10 walking and standing. PAST MEDICAL HISTORY Diagnosis Date Depression History of colon polyps History of migraine Hypercholesteremia Insomnia Osteopenia PAST SURGICAL HISTORY Procedure Laterality Date COLONOSCOPY FLX DX W/COLLJ SPEC WHEN PFRMD 07/11/04 tubular adenoma COLONOSCOPY FLX DX W/COLLJ SPEC WHEN PFRMD 10/07/2009 diverticulosis COLONOSCOPY FLX DX W/COLLJ SPEC WHEN PFRMD 11/16/14 Colonoscopy PAST SURGICAL HISTORY OF 1979 tubal ligation PAST SURGICAL HISTORY OF 1997 lump removed from breast PAST SURGICAL HISTORY OF Left tib-fib fx. L leg, ORIF left ankle REMV CATARACT EXTRACAP,INSERT LENS Right 10/06/2021 SN60WF 20.0 D Current Outpatient Medications on File Prior to Visit Medication Sig venlafaxine XR (EFFEXOR XR) 150 mg 24 hr capsule Take 1 capsule by mouth once daily. donepezil (ARICEPT) 5 mg tablet Take by mouth. atorvastatin (LIPITOR) 40 mg tablet Take by mouth. aspirin, enteric coated (ASPIRIN, ENTERIC COATED) 81 mg EC tablet Take by mouth. Alendronate-Vitamin D3 70 mg- 2,800 unit tab Take 1 tablet by mouth once each week. traZODone (DESYREL) 100 mg tablet Take 1 tablet by mouth daily at bedtime. GLUC/CHND/OM3/DHA/EPA/FISH/STR (GLUCOSAMINE CHONDROITIN PLUS ORAL) Take 1 tablet by mouth every other day. Calcium-Cholecalciferol, D3, 600 mg-10 mcg (400 unit) cap Take by mouth once daily. Cholecalciferol, Vitamin D3, 25 mcg (1,000 unit) cap Take 1,000 Units by mouth once daily. multivitamins(DAILY MULTIVITAMIN TAB) Take one(1) tablet daily. omega-3 fatty acids/vitamin e(FISH OIL 1,000 MG CAP) Take one(1) tablet daily. No current facility-administered medications on file prior to visit. Physical Exam Findings: General exam: Normal, Extremeties right knee tenderness over the anterior joint line and in the popliteal fossa. No redness or warmth to touch is noted. Assessment: Severe arthritis right knee Plan: Large Joint Arthro/Inj: R knee joint Informed Consent Consent Obtained: Verbal [place] Protocol A moment to CARE was completed. SIGN IN TIME OUT Intended patient and procedure match the source document(s). 08/04/2022 1:32 PM Site: R knee joint Medications: 6 mg betamethasone acetate-betamethasone sodium phosphate 6 mg/mL Anesthetics: 4 mL lidocaine (PF) 10 mg/mL (1 %) Graham Becerra DO Patient presents with: Knee Pain: Right; cortisone injection AMB ROOMING INTAKE FLOWSHEET DATA Pain Pain Level: 6 Pain Location: Knee-Right Description: Aching Duration Amount of Time: 4 Duration Units: Months Frequency: Continuous Intervention/Comfort measure: Medication documented in this encounter [facility] 06-02-2022 Note HNO ID: [id number] Author: Clemencia Rolon MD Service: ? Author Type: Physician Type: Progress Notes Filed: 06/02/2022 10:50 AM Note Text: ASSESSMENT/PLAN: 1. Vitreous floaters of both eyes - ICD9: 379.24, ICD10: H43.393 (primary diagnosis) - FUNDUS PHOTOS OU (BOTH EYES) Patient was given both written and verbal information on flashes and floaters. Patient was instructed to call the office ([phone]) immediately upon noticing flashes of light, increase in floaters, or changes in vision. 2. 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 3. Hypercholesteremia - ICD9: 272.0, ICD10: E78.00 Continue to monitor with primary care physician. 4. Major depressive disorder, remission status unspecified, unspecified whether recurrent - ICD9: 296.20, ICD10: F32.9 Continue to monitor with primary care physician. Clemencia Rolon MD I have confirmed and edited as necessary the relevant ophthalmic history, review of systems, surgical history, and ophthalmological examination findings as obtained by the ophthalmic technical staff. I have seen and examined Gaby Courtney. I have discussed the examination findings, diagnosis, and treatment options with Gaby Courtney and/or her family. I have also reviewed and agree with the assessment and plan as stated above and agree with all its relevant components. I gave the patient the opportunity to ask questions about the findings, diagnosis, and treatment options. [facility] 06-02-2022 Instructions Clemencia Rolon MD - 06/02/2022 10:01 AM EST Start: Systane Complete solution instill 1 drop 3 times daily Both Eyes. If you have any questions please contact our office at [phone]. After office hours or on the weekend, please call Dr. Rolon on his cell phone at [phone]. documented in this encounter [facility] 06-02-2022 History of Present illness Narrative ASSESSMENT/PLAN: 1. Vitreous floaters of both eyes - ICD9: 379.24, ICD10: H43.393 (primary diagnosis) - FUNDUS PHOTOS OU (BOTH EYES) Patient was given both written and verbal information on flashes and floaters. Patient was instructed to call the office ([phone]) immediately upon noticing flashes of light, increase in floaters, or changes in vision. 2. 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 3. Hypercholesteremia - ICD9: 272.0, ICD10: E78.00 Continue to monitor with primary care physician. 4. Major depressive disorder, remission status unspecified, unspecified whether recurrent - ICD9: 296.20, ICD10: F32.9 Continue to monitor with primary care physician. Clemencia Rolon MD I have confirmed and edited as necessary the relevant ophthalmic history, review of systems, surgical history, and ophthalmological examination findings as obtained by the ophthalmic technical staff. I have seen and examined Gaby Courtney. I have discussed the examination findings, diagnosis, and treatment options with Gaby Courtney and/or her family. I have also reviewed and agree with the assessment and plan as stated above and agree with all its relevant components. I gave the patient the opportunity to ask questions about the findings, diagnosis, and treatment options. documented in this encounter [facility] 03-24-2022 Note HNO ID: [id number] Author: Nerissa Ortiz Ma Service: ? Author Type: ? Type: Progress Notes Filed: 03/24/2022 11:12 AM Note Text: Gel One injection into right knee LOT # [id number] EXP 06/19/2023 Nerissa Ortiz Ma [facility] 03-24-2022 Note HNO ID: [id number] Author: Graham Becerra V, DO Service: ? Author Type: Physician Type: Progress Notes Filed: 03/24/2022 11:03 AM Note Text: SUBJECTIVE: This is a 82 year old female that is here today for right knee pain/osteoarthritis. She was here 2 months ago and received gel 1 injection to the left knee for osteoarthritis. She states that it helped significantly with symptoms. She would like to do the same treatment on the right knee today. PAST MEDICAL HISTORY Diagnosis Date Depression History of colon polyps History of migraine Hypercholesteremia Insomnia Osteopenia .p Current Outpatient Medications on File Prior to Visit Medication Sig atorvastatin (LIPITOR) 40 mg tablet Take by mouth. aspirin, enteric coated (ASPIRIN, ENTERIC COATED) 81 mg EC tablet Take by mouth. Alendronate-Vitamin D3 70 mg- 2,800 unit tab Take 1 tablet by mouth once each week. venlafaxine XR (EFFEXOR XR) 150 mg 24 hr capsule Take 1 capsule by mouth once daily. traZODone (DESYREL) 100 mg tablet Take 1 tablet by mouth daily at bedtime. Calcium-Cholecalciferol, D3, 600 mg-10 mcg (400 unit) cap Take by mouth once daily. Cholecalciferol, Vitamin D3, 25 mcg (1,000 unit) cap Take 1,000 Units by mouth once daily. multivitamins(DAILY MULTIVITAMIN TAB) Take one(1) tablet daily. donepezil (ARICEPT) 5 mg tablet Take by mouth. cyclobenzaprine (FLEXERIL) 10 mg tablet Take 10 mg by mouth three times daily as needed. (Patient not taking: Reported on 03/24/2022) GLUC/CHND/OM3/DHA/EPA/FISH/STR (GLUCOSAMINE CHONDROITIN PLUS ORAL) Take 1 tablet by mouth every other day. omega-3 fatty acids/vitamin e(FISH OIL 1,000 MG CAP) Take one(1) tablet daily. No current facility-administered medications on file prior to visit. . OBJECTIVE: APPEARANCE Well appearing, alert, in no acute distress, well-hydrated, well nourished. EXTREMITIES Extremities normal, No skin discoloration, No edema, and Normal pulses bilaterally. ASSESSMENT: Osteoarthritis right knee PLAN: GEL ONE JOINT INJECTION The proposed risks, benefits, alternative, consequences, and personnel of local anesthetic and GEL ONE injection were discussed in detail. The patient verbalizes understanding and elects to proceed with the injection. An audible time out was done, identifying the patient's name and medical record number, the procedure verified with the patient including the correct injection site. Under sterile technique the patient underwent a right knee(s) injection of 3 cc of 2% Lidocaine followed by 3 cc of sterile Crossed-linked Hyaluronate (Gel One). right knee(s) Lot #: [id number] Exp. Date: 2023-06-19 The patient tolerated the procedure well. No complications observed. The patient had good symptomatic relief. Verbal instructions on post-injection care were given. The patient was instructed to continue with current treatment regimen, including conservative therapy-Rest, Ice, Compression, Elevation, and to contact me immediately with any fever, chills, effusion, erythema, hematoma, decrease ROM in the knee joint, motor weakness, or any sensory changes. Patient left in satisfactory condition. Graham Becerra DO Electronic Signature [facility] 03-24-2022 Note HNO ID: [id number] Author: Nerissa Ortiz Ma Service: ? Author Type: ? Type: Progress Notes Filed: 03/24/2022 11:03 AM Note Text: AMB ROOMING INTAKE FLOWSHEET DATA Risk Screening Do you have concerns about personal safety or safety in the home?: No Pain Pain Level: 5 Pain Location: Knee-Right Description: Sharp Duration Amount of Time: (ongoing) Frequency: Intermittent Intervention/Comfort measure: Other: See comment (none) [facility] 03-24-2022 History of Present illness Narrative Gel One injection into right knee LOT # [id number] EXP 06/19/2023 Nerissa Ortiz Ma SUBJECTIVE: This is a 82 year old female that is here today for right knee pain/osteoarthritis. She was here 2 months ago and received gel 1 injection to the left knee for osteoarthritis. She states that it helped significantly with symptoms. She would like to do the same treatment on the right knee today. PAST MEDICAL HISTORY Diagnosis Date Depression History of colon polyps History of migraine Hypercholesteremia Insomnia Osteopenia .p Current Outpatient Medications on File Prior to Visit Medication Sig atorvastatin (LIPITOR) 40 mg tablet Take by mouth. aspirin, enteric coated (ASPIRIN, ENTERIC COATED) 81 mg EC tablet Take by mouth. Alendronate-Vitamin D3 70 mg- 2,800 unit tab Take 1 tablet by mouth once each week. venlafaxine XR (EFFEXOR XR) 150 mg 24 hr capsule Take 1 capsule by mouth once daily. traZODone (DESYREL) 100 mg tablet Take 1 tablet by mouth daily at bedtime. Calcium-Cholecalciferol, D3, 600 mg-10 mcg (400 unit) cap Take by mouth once daily. Cholecalciferol, Vitamin D3, 25 mcg (1,000 unit) cap Take 1,000 Units by mouth once daily. multivitamins(DAILY MULTIVITAMIN TAB) Take one(1) tablet daily. donepezil (ARICEPT) 5 mg tablet Take by mouth. cyclobenzaprine (FLEXERIL) 10 mg tablet Take 10 mg by mouth three times daily as needed. (Patient not taking: Reported on 03/24/2022) GLUC/CHND/OM3/DHA/EPA/FISH/STR (GLUCOSAMINE CHONDROITIN PLUS ORAL) Take 1 tablet by mouth every other day. omega-3 fatty acids/vitamin e(FISH OIL 1,000 MG CAP) Take one(1) tablet daily. No current facility-administered medications on file prior to visit. . OBJECTIVE: APPEARANCE Well appearing, alert, in no acute distress, well-hydrated, well nourished. EXTREMITIES Extremities normal, No skin discoloration, No edema, and Normal pulses bilaterally. ASSESSMENT: Osteoarthritis right knee PLAN: GEL ONE JOINT INJECTION The proposed risks, benefits, alternative, consequences, and personnel of local anesthetic and GEL ONE injection were discussed in detail. The patient verbalizes understanding and elects to proceed with the injection. An audible time out was done, identifying the patient's name and medical record number, the procedure verified with the patient including the correct injection site. Under sterile technique the patient underwent a right knee(s) injection of 3 cc of 2% Lidocaine followed by 3 cc of sterile Crossed-linked Hyaluronate (Gel One). right knee(s) Lot #: [id number] Exp. Date: 2023-06-19 The patient tolerated the procedure well. No complications observed. The patient had good symptomatic relief. Verbal instructions on post-injection care were given. The patient was instructed to continue with current treatment regimen, including conservative therapy-Rest, Ice, Compression, Elevation, and to contact me immediately with any fever, chills, effusion, erythema, hematoma, decrease ROM in the knee joint, motor weakness, or any sensory changes. Patient left in satisfactory condition. Graham Becerra DO Electronic Signature AMB ROOMING INTAKE FLOWSHEET DATA Risk Screening Do you have concerns about personal safety or safety in the home?: No Pain Pain Level: 5 Pain Location: Knee-Right Description: Sharp Duration Amount of Time: (ongoing) Frequency: Intermittent Intervention/Comfort measure: Other: See comment (none) documented in this encounter [facility] 01-27-2022 History of Present illness Narrative SUBJECTIVE: This is a 81 year old female that is here today for left knee pain. Patient has osteoarthritis of the knees, last seen 22 months ago. At that time she received gel 1 injection to the left knee and tolerated it very well. She states that she had good symptom relief until just recently. She would like to consider another gel 1 injection today for osteoarthritis of the left knee. PAST MEDICAL HISTORY Diagnosis Date Depression History of colon polyps History of migraine Hypercholesteremia Insomnia Osteopenia .p Current Outpatient Medications on File Prior to Visit Medication Sig donepezil (ARICEPT) 5 mg tablet Take by mouth. atorvastatin (LIPITOR) 40 mg tablet Take by mouth. aspirin, enteric coated (ASPIRIN, ENTERIC COATED) 81 mg EC tablet Take by mouth. Alendronate-Vitamin D3 70 mg- 2,800 unit tab Take 1 tablet by mouth once each week. cyclobenzaprine (FLEXERIL) 10 mg tablet Take 10 mg by mouth three times daily as needed. venlafaxine XR (EFFEXOR XR) 150 mg 24 hr capsule Take 1 capsule by mouth once daily. traZODone (DESYREL) 100 mg tablet Take 1 tablet by mouth daily at bedtime. GLUC/CHND/OM3/DHA/EPA/FISH/STR (GLUCOSAMINE CHONDROITIN PLUS ORAL) Take 1 tablet by mouth every other day. Calcium-Cholecalciferol, D3, 600 mg-10 mcg (400 unit) cap Take by mouth once daily. Cholecalciferol, Vitamin D3, 25 mcg (1,000 unit) cap Take 1,000 Units by mouth once daily. multivitamins(DAILY MULTIVITAMIN TAB) Take one(1) tablet daily. omega-3 fatty acids/vitamin e(FISH OIL 1,000 MG CAP) Take one(1) tablet daily. No current facility-administered medications on file prior to visit. OBJECTIVE: APPEARANCE Well appearing, alert, in no acute distress, well-hydrated, well nourished. EXTREMITIES No skin discoloration, No edema, Normal pulses bilaterally., and left knee tender to palpation over the medial joint line and medial femoral condyle. No significant laxity with varus or valgus stress. X-ray of the knee shows joint space narrowing and osteophyte formation along the medial compartment of the left knee greater than the right ASSESSMENT: Osteoarthritis bilateral knees left knee symptomatic PLAN: GEL ONE JOINT INJECTION The proposed risks, benefits, alternative, consequences, and personnel of local anesthetic and GEL ONE injection were discussed in detail. The patient verbalizes understanding and elects to proceed with the injection. An audible time out was done, identifying the patient's name and medical record number, the procedure verified with the patient including the correct injection site. Under sterile technique the patient underwent a left knee(s) injection of 3 cc of sterile Crossed-linked Hyaluronate (Gel One). left knee(s) Lot #: [id number] Exp. Date: 06/19/2023 The patient tolerated the procedure well. No complications observed. The patient had good symptomatic relief. Verbal instructions on post-injection care were given. The patient was instructed to continue with current treatment regimen, including conservative therapy-Rest, Ice, Compression, Elevation, and to contact me immediately with any fever, chills, effusion, erythema, hematoma, decrease ROM in the knee joint, motor weakness, or any sensory changes. Patient left in satisfactory condition. Graham Becerra DO Patient presents with: Knee Pain: left knee pain AMB ROOMING INTAKE FLOWSHEET DATA Risk Screening Do you have concerns about personal safety or safety in the home?: No Pain Pain Level: 4 Pain Location: Knee-Left Description: Other: See comment Duration Units: Unknown Frequency: Intermittent Intervention/Comfort measure: Relaxation, Reposition Comments: catch on inside of knee. Just hurts documented in this encounter [facility] 01-27-2022 History of Present illness Narrative Radiology Service Progress Note PATIENT NAME: Gaby Courtney DATE OF SERVICE: January 27, 2022 TIME: 10:07 AM PATIENT IDENTITY VERIFICATION COMPLETED USING TWO (2) IDENTIFIERS: Name and Date of confirmed by patient verbally. FALL SCREENING: Has the patient had 2 falls in the last year or 1 fall with injury or currently using an Ambulatory Assistive Device (Walker, Cane, Wheelchair, Crutches, etc.)? No PATIENT GENDER DATA: Female. status: : No status: NO. PATIENT RELEVANT IMPLANT DATA REVIEWED: Not Applicable RADIOLOGY DEPARTMENT: General X-ray: Exam(s) Completed: Lower Extremity X-Ray(s): Knee, AP / Lat / Tunne / Merchant Left and Wt. Bearing PERIPHERAL IV DATA: Not applicable SIGNED BY: RT Florentino(R) January 27, 2022 10:07 AM documented in this encounter [facility] 11-18-2021 Instructions Clemencia Rolon MD - 11/18/2021 2:09 PM EDT Current Ophthalmic Meds prednisoLONE acetate (PRED FORTE) 1 % ophthalmic suspension Use 1 Drop in the left eye three times daily. keTORolac (ACULAR) 0.5 % ophthalmic solution Use 1 Drop in the left eye three times daily. Continue: Systane Complete solution instill 1 drop 3 times daily Both Eyes. Continue post-operative care with Dr. Spence. If you have any questions please contact our office at [phone]. After office hours or on the weekend, please call Dr. Rolon on his cell phone at [phone]. documented in this encounter [facility] 11-18-2021 History of Present illness Narrative ASSESSMENT/PLAN: 1. Status post cataract extraction and insertion of intraocular lens of right eye - ICD9: V45.61, V43.1, ICD10: Z98.41, Z96.1 (primary diagnosis) 2. Status post cataract extraction and insertion of intraocular lens of left eye - ICD9: V45.61, V43.1, ICD10: Z98.42, Z96.1 Current Ophthalmic Meds prednisoLONE acetate (PRED FORTE) 1 % ophthalmic suspension Use 1 Drop in the left eye three times daily. keTORolac (ACULAR) 0.5 % ophthalmic solution Use 1 Drop in the left eye three times daily. Continue: Systane Complete solution instill 1 drop 3 times daily Both Eyes. Continue post-operative care with Dr. Spence. Clemencia Rolon MD I have confirmed and edited as necessary the relevant ophthalmic history, review of systems, surgical history, and ophthalmological examination findings as obtained by the ophthalmic technical staff. I have seen and examined Gaby Courtney. I have discussed the examination findings, diagnosis, and treatment options with Gaby Courtney and/or her family. I have also reviewed and agree with the assessment and plan as stated above and agree with all its relevant components. I gave the patient the opportunity to ask questions about the findings, diagnosis, and treatment options. documented in this encounter [facility] 11-11-2021 History of Present illness Narrative ASSESSMENT/PLAN: 1. Status post cataract extraction and insertion of intraocular lens of left eye - ICD9: V45.61, V43.1, ICD10: Z98.42, Z96.1 (primary diagnosis) Current Ophthalmic Meds prednisoLONE acetate (PRED FORTE) 1 % ophthalmic suspension Use 1 Drop in the left eye four times daily. keTORolac (ACULAR) 0.5 % ophthalmic solution Use 1 Drop in the left eye four times daily. 2. Status post cataract extraction and insertion of intraocular lens of right eye - ICD9: V45.61, V43.1, ICD10: Z98.41, Z96.1 Stable/Monitor I have confirmed and edited as necessary the relevant ophthalmic history, review of systems, surgical history, and ophthalmological examination findings as obtained by the ophthalmic technical staff. I have seen and examined Gaby Courtney. I have discussed the examination findings, diagnosis, and treatment options with Gaby Courtney and/or her family. I have also reviewed and agree with the assessment and plan as stated above and agree with all its relevant components. I gave the patient the opportunity to ask questions about the findings, diagnosis, and treatment options. Clemencia Rolon MD documented in this encounter [facility] 11-11-2021 Instructions Clemencia Rolon MD - 11/11/2021 2:44 PM EDT Current Ophthalmic Meds prednisoLONE acetate (PRED FORTE) 1 % ophthalmic suspension Use 1 Drop in the left eye four times daily. keTORolac (ACULAR) 0.5 % ophthalmic solution Use 1 Drop in the left eye four times daily. Follow up in 1 week If you have any questions please contact our office at [phone]. After office hours or on the weekend, please call Dr. Rolon on his cell phone at [phone]. documented in this encounter [facility] documented as of this encounter (statuses as of 06/02/2022) [facility]06-24-[facility]22 History of Past illness Narrative* Problem Noted Date Resolved Date Status post cataract extract ion and insertion of intraocular lens of left eye 11/11/2021 06/02/2022 Status post cataract extract ion and insertion of intraocular lens of right eye 10/07/2021 06/02/2022 Combined form of age-related cataract, right eye 09/06/2021 10/12/2021 Combined forms of age-related cataract of left e ye 09/06/2021 06/02/2022 documented as of this encounter (statuses as of 08/04/2022) [facility] History of Past illness Narrative* Problem Noted Date Diagnosed Date Resolved Date Status post cataract extract ion and insertion of intraocular lens of left eye 11/11/2021 06/02/19 23 Status post cataract extract ion and insertion of intraocular lens of right eye 10/07/2021 023 Combined form of age-related cataract, right eye 09/06/2021 10/12/2021 Combined forms of age-relate d cataract of left eye 09/06/2021 06/02/2022 documented as of this encounter (statuses as of 12/05/2022) [facility] History of Past illness Narrative* Problem Noted Date Diagnosed Date Resolved Date Status post cataract extract ion and insertion of intraocular lens of left eye 11/11/2021 06/02/19 23 Status post cataract extract ion and insertion of intraocular lens of right eye 10/07/2021 023 Combined form of age-related cataract, right eye 09/06/2021 10/12/2021 Combined forms of age-relate d cataract of left eye 09/06/2021 06/02/2022 documented as of this encounter (statuses as of 01/31/2023) [facility] History of Past illness Narrative* Problem Noted Date Diagnosed Date Resolved Date Status post cataract extract ion and insertion of intraocular lens of left eye 11/11/2021 06/02/19 23 Status post cataract extract ion and insertion of intraocular lens of right eye 10/07/2021 023 Combined form of age-related cataract, right eye 09/06/2021 10/12/2021 Combined forms of age-relate d cataract of left eye 09/06/2021 06/02/2022 documented as of this encounter (statuses as of 02/02/2023) [facility] History of Past illness Narrative* Problem Noted Date Diagnosed Date Resolved Date Status post cataract extract ion and insertion of intraocular lens of left eye 11/11/2021 06/02/19 23 Status post cataract extract ion and insertion of intraocular lens of right eye 10/07/2021 023 Combined form of age-related cataract, right eye 09/06/2021 10/12/2021 Combined forms of age-relate d cataract of left eye 09/06/2021 06/02/2022 documented as of this encounter (statuses as of 03/16/2023) [facility] NotePost Operative Note: Post-Procedure Diagnosis: 1. Combined Form Age Related Cataract Left Eye Procedure: 1. Cataract Extraction with Intraocular Lens Implant Left Eye Surgeon: Clemencia Rolon MD Resident/Fellow/Other Cell Pourer: None Estimated Blood Loss (mL): none Specimen: no Findings: 1. Combined Form Age Related Cataract Left Eye Operative Report Dictated: Dictation: not applicable - note contains Operative Report Operative Report: The patient was correctly identified in the preop area and the operative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 vascular dementia with agitation (CMS/HCC)- Primary documented in this encounter [facility] Work Phone: Evaluation note* Diagnosis Memory loss- Primary History of TIA (transient ischemic attack) documented in this encounter [facility] note* Diagnosis Vitreous floaters of both eyes- Primary PVD (posterior vitreous detachment), bilateral Diplopia [facility]* Diagnosis 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 CVD (cerebrovascular disease) Unspecified cerebrovascular disease Insomnia, unspecified type documented in this encounter [facility] note* Diagnosis Right knee pain, unspecified chronicity- Primary [facility] Diagnosis Primary osteoarthritis of right knee- Primary Primary localized osteoarthrosis, lower leg Primary osteoarthritis of left knee Primary localized osteoarthrosis, lower leg documented in this encounter [facility] note* Diagnosis Primary osteoarthritis of both knees- Primary Primary localized osteoarthrosis, lower leg [facility] Diagnosis Sterile pyuria- Primary Other nonspecific finding on examination of urine Patent foramen ovale Ostium secundum type atrial septal defect documented in this encounter [facility] Work Phone: Evaluation note* Diagnosis Dizziness- Primary Dizziness and giddiness documented in this encounter [facility] Work Phone: History of Present illness Narrative* left wrist no injury * gradually worse or maybe jut the same * hurts ath the base of thumb and swollen * otc ibuprofen * right handed * no repetitive * + h/o fractures ankle [facility] Work Phone: History of Present illness Narrative* Goes by Alfonzo * here with dtr concerns about memory * pt passed memory tests but dtr believes she needs aricept due to short term memory * pt then told dtr either you leave or I leave dtr then left * I let pt know she should wear her hearing aids she as this would help with short term memory * today pt was late for appt and confused in how to find office * MOCA initially missed 1 a 2b but was able to correct, did not draw bed correctly first time * without correction with correction * short term memory very poor 0/5 * pt did not do labs for today * Anxiety and depression * depressioni stable phq2 normal * Chronic renal insufficiency, stage III (moderate) * labs normal July 2019 and april 2020 * no cp no palpitations * H/o Left parietal Stroke * was followed by cardiology and noted no arrhthymia * History of breast lump * removed no cancer * TIA May 2019 * affecting right hand only but completely resolved * was seen by Cardiology Dr Alison cummins done * states has PFO but not recommend to fix * Osteoarthritis of left knee * had a shot not a steroid [address] [facility] [address] Becerra * occ tylenol * Osteoporosis of lumbar spine * taking alendronate weekly started jun 2016 * does not want to repeat bone scan * takes vitamin and calcium [facility] Work Phone: History of Present illness Narrative* The patient is being seen for the subsequent annual wellness visit. * Past Medical, Surgical and Family History: reviewed and updated in chart. * Medications and Supplements: Review of all medications by a prescribing practitioner or clinical pharmacist (such as prescriptions, OTCs, herbal therapies and supplements) documented in the medical record. * No, the patient is not using opioids. * Patient Self Assessment of Health Status: good. * Tobacco use: Non-User * Alcohol use: Non-User * Illicit drug use: Non-User * Current diet: does consume caffeine. * Exercise Frequency: the patient does not exercise. * Depression/Suicide Screening: . * During the past 2 weeks, the patient has not felt down, depressed or hopeless. * During the past 2 weeks, the patient has not felt little interest or pleasure in doing things. * Hearing Impairment: Patient has significant hearing impairment, bilaterally. * Cognitive Impairment: No cognitive impairment observed. * Bathing: performs independently. * Dressing: performs independently. * Walking: performs independently. * Bladder: occasional accident. * Managing Finances: needs assistance. * Shopping: needs assistance. * Managing Medications: needs assistance. * Housework / Basic Home Maintenance: performs independently. * Home safety risk factors: loose rugs, no grab bars in the bathroom and household clutter. * Advance directives:. Advanced Care Planning discussed and documented advance care plan or surrogatedecision maker documented in the medical record. Patient has living will. Patient has healthcare POA. * Patient's End of Life Decisions: End of life decisions were reviewed with the patient. I agree to follow the patient's decisions. * Anxiety and depression * depressioni stable phq2 normal * short term memory loss * she tried the aricept one day and felt worse * dtr present who has now taken over the bills * talks on the phone in the evening * keeps track of her finances * recommend being a passenger as mother drives * if pt gets lost she states she would use cell phone or stop for directions * Chronic renal insufficiency, stage III (moderate) * now stage 2 * no cp no palpitations * H/o Left parietal Stroke * no new weakness * however gait is unsteady and uses objects in room for support * i have recommended a cane * History of breast lump * removed no cancer * TIA May 2019 * affecting right hand only but completely resolved * was seen by Cardiology Dr Alison cummins done * states has PFO but not recommend to fix * Osteoarthritis of left knee * has been taking aleve prn * Osteoporosis of lumbar spine * taking alendronate weekly started jun 2016 dc July 2021 * dexa ordered if abn start prolia * takes vitamin and calcium [facility] Work Phone: History of Present illness Narrative* Ms. Courtney arrives to outpatient PT with impaired balance while ambulating however it does not impair her with ADLs or household duties, she reports. Pt would benefit from skilled PT however she requests HEP instead, which PT believes would also be beneficial. HEP given with focus on balance as her LE strength is good. Pt reports understanding and agreement. She was instructed to call with anyquestions or concerns. * Clinical Presentation: Stable and/or uncomplicated characteristics. * Level of Complexity: low * Problem List: balance, decreased functional level and decreased knowledge of HEP. [facility] Work Phone: Hospital Discharge instructions* Attachments The following attachments cannot be sent through Care Everywhere. * Thrombophlebitis: Superficial (Slovenian) documented [facility] (narrative)* Diagnostic Procedure Only (Routine) - Pending Review Specialty Diagnoses / Procedures Referred By Erika t Referred To Contact XR IMAGING Diagnoses Left knee pain, unspecified chronicity Procedures XR KNEE GENERAL 4V AP BOTH/PA BOTH/LAT/MERC LEFT RADIOLOGIC EXAM KNEE COMPLETE 4/MORE VIEWS Graham Becerra, V, DO [address] [place] [address] Xr Imaging Referral ID Status Reason Start Date Expiration Date Visits Requested Visits Authorized [id number] Pending Review Auto-Generat ed Referral 01/25/2022 02/24/2023 1 1 [facility] for referral (narrative)* Diagnostic Procedure Only (Routine) - Closed Specialty Diagnoses / Procedures Referred By Contac t Referred To Contact XR IMAGING Diagnoses Left knee pain, unspecified chronicity Procedures XR KNEE GENERAL 4V AP BOTH/PA BOTH/LAT/MERC LEFT RADIOLOGIC EXAM KNEE COMPLETE 4/MORE VIEWS Graham Becerra V, DO [address] [place] [address] Xr Imaging Referral ID Status Reason Start Date Expiration Date V isits Requested Visits Authorized [id number] Closed Auto-Generate d Referral 01/25/2022 02/24/2023 1 1 [facility] for referral (narrative)* Consultation (Routine) - Authorized Specialty Diagnoses / Procedures Referred By Contac t Referred To Contact Primary Care Procedures Follow Up In Primary Care Shahla Thayer MD [address] [facility] [place], [place] [address] Referral ID Status Reason Start Date Expiration Date V isits Requested Visits Authorized [id number] Authorized 09/14/2022 03/13/2023 1 1 [facility] Work Phone: Reide[facility] for referral (narrative)* Diagnostic Procedure Only (Routine) - Pending Review Specialty Diagnoses / Procedures Referred By Contac t Referred To Contact XR IMAGING Diagnoses Right knee pain, unspecified chronicity Procedures XR KNEE GENERAL 4V AP BOTH/PA BOTH/LAT/MERC RIGHT RADIOLOGIC EXAM KNEE COMPLETE 4/MORE VIEWS Graham Becerra V, DO [address] [id number] [place] [id number] Referral ID Status Reason Start Date Expiration Date Visits Requested Visits Authorized [id number] Pending Review Auto-Generat ed Referral 01/31/2023 03/01/2024 1 1 [facility] for visit Narrative* Diagnostic Procedure Only (Routine) - Closed Specialty Diagnoses / Procedures Referred By Erika t Referred To Contact XR IMAGING Diagnoses Left knee pain, unspecified chronicity Procedures XR KNEE GENERAL 4V AP BOTH/PA BOTH/LAT/MERC LEFT RADIOLOGIC EXAM KNEE COMPLETE 4/MORE VIEWS Graham Becerra V, DO [address] [place] [address] Xr Imaging Referral ID Status Reason Start Date Expiration Date V isits Requested Visits Authorized [id number] Closed Auto-Generate d Referral 01/25/2022 02/24/2023 1 1 [facility] for visit Narrative* Initial Evaluation . Dx: R26.9. * Referred by: Shahla Thayer [facility] Work Phone: Summary Purpose Family History Mother Name Dates Details Family history of malignant neoplasm of colon(V16.0, Z80.0) Status:Active Family history of malignant neoplasm of breast(V16.3, Z80.3) Status:Active Sister Name Dates Details Family history of malignant neoplasm of breast(V16.3, Z80.3) Status:Active Family history of myocardial infarction(V17.3, Z82.49) Status:Active Family history of leukemia(V 16.6, Z80.6) Status:Active Family history of lung cance r(V16.1, Z80.1) Status:Active Family history of throat can cer(V16.0, Z80.0) Status:Active Family history of Lupus(710. 0, M32.9) Status:Active Brother Name Dates Details Family history of myocardial infarction(V17.3, Z82.49) Status:Active Family history of cardiac di sorder(V17.49, Z82.49) Status:Active Family history of congenital heart disease(V19.5, Z82.79) Status:Active Unknown Family Member Name Dates Details Family history of malignant neoplasm of colon: Mother(V16.0, Z80.0) Status:Active Family history of malignant neoplasm of breast: Mother, Sister(V16.3, Z80.3) Status:Active Family history of myocardial infarction: Sister, Brother(V17.3, Z82.49) Status:Active Family history of leukemia: Sister(V16.6, Z80.6) Status:Active Family history of lung cance r: Sister(V16.1, Z80.1) Status:Active Family history of throat can cer: Sister(V16.0, Z80.0) Status:Active Lupus: Sister Status:Active Family history of cardiac di sorder: Brother(V17.49, Z82.49) Status:Active Family history of congenital heart disease: Brother(V19.5, Z82.79) Status:Active Unknown Family Member Name Dates Details Family history of congenital heart disease: Brother(V19.5, Z82.79) Status:Active Family history of cardiac di sorder: Brother(V17.49, Z82.49) Status:Active Lupus: Sister Status:Active Family history of throat can cer: Sister(V16.0, Z80.0) Status:Active Family history of lung cance r: Sister(V16.1, Z80.1) Status:Active Family history of leukemia: Sister(V16.6, Z80.6) Status:Active Family history of myocardial infarction: Sister, Brother(V17.3, Z82.49) Status:Active Family history of malignant neoplasm of breast: Mother, Sister(V16.3, Z80.3) Status:Active Family history of malignant neoplasm of colon: Mother(V16.0, Z80.0) Status:Active Unknown Family Member Name Dates Details Family history of malignant neoplasm of colon: Mother(V16.0, Z80.0) Status:Active Family history of malignant neoplasm of breast: Mother, Sister(V16.3, Z80.3) Status:Active Family history of myocardial infarction: Sister, Brother(V17.3, Z82.49) Status:Active Family history of leukemia: Sister(V16.6, Z80.6) Status:Active Family history of lung cance r: Sister(V16.1, Z80.1) Status:Active Family history of throat can cer: Sister(V16.0, Z80.0) Status:Active Lupus: Sister Status:Active Family history of cardiac di sorder: Brother(V17.49, Z82.49) Status:Active Family history of congenital heart disease: Brother(V19.5, Z82.79) Status:Active Unknown Family Member Name Dates Details Family history of malignant neoplasm of colon: Mother(V16.0, Z80.0) Status:Active Family history of malignant neoplasm of breast: Mother, Sister(V16.3, Z80.3) Status:Active Family history of myocardial infarction: Sister, Brother(V17.3, Z82.49) Status:Active Family history of leukemia: Sister(V16.6, Z80.6) Status:Active Family history of lung cance r: Sister(V16.1, Z80.1) Status:Active Family history of throat can cer: Sister(V16.0, Z80.0) Status:Active Lupus: Sister Status:Active Family history of cardiac di sorder: Brother(V17.49, Z82.49) Status:Active Family history of congenital heart disease: Brother(V19.5, Z82.79) Status:Active Unknown Family Member Name Dates Details Family history of malignant neoplasm of colon: Mother(V16.0, Z80.0) Status:Active Family history of malignant neoplasm of breast: Mother, Sister(V16.3, Z80.3) Status:Active Family history of myocardial infarction: Sister, Brother(V17.3, Z82.49) Status:Active Family history of leukemia: Sister(V16.6, Z80.6) Status:Active Family history of lung cance r: Sister(V16.1, Z80.1) Status:Active Family history of throat can cer: Sister(V16.0, Z80.0) Status:Active Lupus: Sister Status:Active Family history of cardiac di sorder: Brother(V17.49, Z82.49) Status:Active Family history of congenital heart disease: Brother(V19.5, Z82.79) Status:Active Unknown Family Member Name Dates Details Family history of malignant neoplasm of colon: Mother(V16.0, Z80.0) Status:Active Family history of malignant neoplasm of breast: Mother, Sister(V16.3, Z80.3) Status:Active Family history of myocardial infarction: Sister, Brother(V17.3, Z82.49) Status:Active Family history of leukemia: Sister(V16.6, Z80.6) Status:Active Family history of lung cance r: Sister(V16.1, Z80.1) Status:Active Family history of throat can cer: Sister(V16.0, Z80.0) Status:Active Lupus: Sister Status:Active Family history of cardiac di sorder: Brother(V17.49, Z82.49) Status:Active Family history of congenital heart disease: Brother(V19.5, Z82.79) Status:Active Unknown Family Member Name Dates Details Family history of malignant neoplasm of colon: Mother(V16.0, Z80.0) Status:Active Family history of malignant neoplasm of breast: Mother, Sister(V16.3, Z80.3) Status:Active Family history of myocardial infarction: Sister, Brother(V17.3, Z82.49) Status:Active Family history of leukemia: Sister(V16.6, Z80.6) Status:Active Family history of lung cance r: Sister(V16.1, Z80.1) Status:Active Family history of throat can cer: Sister(V16.0, Z80.0) Status:Active Lupus: Sister Status:Active Family history of cardiac di sorder: Brother(V17.49, Z82.49) Status:Active Family history of congenital heart disease: Brother(V19.5, Z82.79) Status:Active Unknown Family Member Name Dates Details Family history of malignant neoplasm of colon: Mother(V16.0, Z80.0) Status:Active Family history of malignant neoplasm of breast: Mother, Sister(V16.3, Z80.3) Status:Active Family history of myocardial infarction: Sister, Brother(V17.3, Z82.49) Status:Active Family history of leukemia: Sister(V16.6, Z80.6) Status:Active Family history of lung cance r: Sister(V16.1, Z80.1) Status:Active Family history of throat can cer: Sister(V16.0, Z80.0) Status:Active Lupus: Sister Status:Active Family history of cardiac di sorder: Brother(V17.49, Z82.49) Status:Active Family history of congenital heart disease: Brother(V19.5, Z82.79) Status:Active Unknown Family Member Name Dates Details Family history of malignant neoplasm of colon: Mother(V16.0, Z80.0) Status:Active Family history of malignant neoplasm of breast: Mother, Sister(V16.3, Z80.3) Status:Active Family history of myocardial infarction: Sister, Brother(V17.3, Z82.49) Status:Active Family history of leukemia: Sister(V16.6, Z80.6) Status:Active Family history of lung cance r: Sister(V16.1, Z80.1) Status:Active Family history of throat can cer: Sister(V16.0, Z80.0) Status:Active Lupus: Sister Status:Active Family history of cardiac di sorder: Brother(V17.49, Z82.49) Status:Active Family history of congenital heart disease: Brother(V19.5, Z82.79) Status:Active Advance Directives Documents on File Type Date 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 c/o pain in L wrist x3 months.6 month.Pt. states shes here to get a form filled out for surgery.mdck and AWV Medications Administered Section Inactive Administered Medications - up to 3 most recent administrations Medication Order MAR Action Action Date Dose Rate Site hyaluronate sod, cross-linked 30 mg injection (GEL-ONE) 30 mg, INTRA-ARTICULAR, ONCE, 1 dose, On Sun01/27/22 at 1100, This record documents the total dose provided to patient. See progress note for specific locations and amounts administered. Given by JAZMÍN 01/27/2022 10:51 AM EDT 30 mg Kne e, Left Inactive Administered Medications - up to 3 most recent administrations Medication Order MAR Action Action Date Dose Rate Site hyaluronate sod, cross-linked 30 mg injection (GEL-ONE) 30 mg, INTRA-ARTICULAR, ONCE, 1 dose, On Sun03/24/22 at 1130, This record documents the total dose provided to patient. See progress note for specific locations and amounts administered. Given 03/24/2022 11:02 AM EDT 30 mg Active Administered Medications - up to 3 most recent administrations Medication Order MAR Action Action Date Dose Rate Site PHENYLephrine 2.5 % 1 Drop (AK-DILATE, JUAN FRANCISCO-SYNEPHRINE) 1 Drop, BOTH EYES, DIRECTED, Starting on Sun06/02/22 at 1030, Until Sun06/02/22 at 2229, Administer for dilation PROTECT FROM LIGHT Given 06/02/2022 10:30 AM EST 1 Drop proparacaine 0.5 % 1 Drop (ALCAINE) 1 Drop, BOTH EYES, DIRECTED, Starting on Sun06/02/22 at 1000, Until Sun06/02/22 at 2159, Administer for pneumo tonometry, tonopen tonometry, or pachymetry. In the event of a proparacaine shortage, administer tetracaine 0.5% ophthalmic drops 1 drop in the left eye as directed for pneumo tonometry, tonopen tonometry, or pachymetry Given 06/02/2022 10:00 AM EST 1 Drop tropicamide 1 % 1 Drop (MYDRIACYL) 1 Drop, BOTH EYES, DIRECTED, Starting on Sun06/02/22 at 1030, Until Sun06/02/22 at 2229, Administer for dilation Given 06/02/2022 10:30 AM EST 1 Drop Inactive Administered Medications - up to 3 most recent administrations Medication Order MAR Action Action Date Dose Rate Site betamethasone acetate-betamethasone sodium phosphate 6 mg injection (CELESTONE) 6 mg, Injection - FOR ORTHO USE ONLY, ONE TIME INJECTION, 1 dose, Starting on Sun08/04/22 at 1332, Until Sun08/04/22 at 1332 Given 08/04/2022 1:32 PM EDT 6 mg Kn ee, Right lidocaine (PF) 10 mg/mL (1 %) 4 mL injection (XYLOCAINE) 4 mL, Injection - FOR ORTHO USE ONLY, ONE TIME INJECTION, 1 dose, Starting on Sun08/04/22 at 1332, Until Sun08/04/22 at 1332 Given 08/04/2022 1:32 PM EDT 4 mL Kn ee, Right Active Administered Medications - up to 3 most recent administrations Medication Order MAR Action Action Date Dose Rate Site PHENYLephrine 2.5 % 1 Drop (AK-DILATE, JUAN FRANCISCO-SYNEPHRINE) 1 Drop, BOTH EYES, DIRECTED, Starting on Sun12/05/22 at 1000, Until Sun12/05/22 at 2158, Administer for dilation PROTECT FROM LIGHT Given 12/05/2022 10:00 AM EDT 1 Drop tropicamide 1 % 1 Drop (MYDRIACYL) 1 Drop, BOTH EYES, DIRECTED, Starting on Sun12/05/22 at 1000, Until Sun12/05/22 at 2158, Administer for dilation Given 12/05/2022 10:00 AM EDT 1 Drop Inactive Administered Medications - up to 3 most recent administrations Medication Order MAR Action Action Date Dose Rate Site betamethasone acetate-betamethasone sodium phosphate 6 mg injection (CELESTONE) 6 mg, Injection - FOR ORTHO USE ONLY, ONCE, 1 dose, Starting on Sun03/16/23 at 1056, Until Sun03/16/23 at 1056 Given 03/16/2023 10:56 AM EDT 6 mg Knee , Left betamethasone acetate-betamethasone sodium phosphate 6 mg injection (CELESTONE) 6 mg, Injection - FOR ORTHO USE ONLY, ONCE, 1 dose, Starting on Sun03/16/23 at 1056, Until Sun03/16/23 at 1056 Given 03/16/2023 10:56 AM EDT 6 mg Knee , Right lidocaine (PF) 10 mg/mL (1 %) 4 mL injection (XYLOCAINE) 4 mL, Injection - FOR ORTHO USE ONLY, ONCE, 1 dose, Starting on Sun03/16/23 at 1056, Until Sun03/16/23 at 1056 Given 03/16/2023 10:56 AM EDT 4 mL Knee , Left lidocaine (PF) 10 mg/mL (1 %) 4 mL injection (XYLOCAINE) 4 mL, Injection - FOR ORTHO USE ONLY, ONCE, 1 dose, Starting on Sun03/16/23 at 1056, Until Sun03/16/23 at 1056 Given 03/16/2023 10:56 AM EDT 4 mL Knee , Right Reason for Referral Specialty Diagnoses / Procedures Referred By Contac t Referred To Contact Radiology Diagnoses Memory loss History of TIA (transient ischemic attack) Procedures MR brain wo contrast Rashaun Thorne, CRIMINAL RESEARCH SPECIALIST - HOME ENERGY CONSULTANT SUPERVISOR [address] [place] [address] Referral ID Status Reason Start Date Expiration Date V isits Requested Visits Authorized [id number] Pending Review 11/14/2022 05/13/2023 1 1 Specialty Diagnoses / Procedures Referred By Contac t Referred To Contact Diagnoses Patrice Irwin, DO [address] [place] [address] Referral ID Status Reason Start Date Expiration Date V isits Requested Visits Authorized [id number] Pending Review 1 1 Additional Source Comments INFORMATION SOURCE (unrecogn ized section and content) DATE CREATED AUTHOR AUTHOR'S ORGANIZ ATION 12/24/2021 [facility] DATE CREATED AUTHOR AUTHOR'S ORGANIZ ATION 06/22/2022 [facility] DATE CREATED AUTHOR AUTHOR'S ORGANIZ ATION 08/13/2022 [facility] DATE CREATED AUTHOR AUTHOR'S ORGANIZ ATION 01/16/2023 [facility] DATE CREATED AUTHOR AUTHOR'S ORGANIZ ATION 02/03/2023 [facility] DATE CREATED AUTHOR AUTHOR'S ORGANIZ ATION 02/05/2023 [facility] DATE CREATED AUTHOR AUTHOR'S ORGANIZ ATION 03/18/2023 [facility] DATE CREATED AUTHOR AUTHOR'S ORGANIZ ATION 03/23/2023 [facility] Reason for Visit (unrecogniz ed section and content) Reason Comments Post-op Cataract OD Status Post Cataract Surgery with Basic IOL of Right Eye (10-06-21) Blurred Vision Left Eye Difficulty Reading Left Eye Glare Reason Comments Post-op Cataract OD Status Post Traditio nal Cataract Surgery with PC IOL - Right eye (10/06/2021) Blurred Vision Left Eye Difficulty Reading Both Eyes Glare Left eye Halos Left Eye Reason Comments Status post cataract surgery with IOL le ft eye 11-10-21 Reason Comments Post-op Cataract OD Status Post Cataract Surgery with Monofocal Intraocular Lens Implant Right Eye (10/06/2021) Post-op Cataract OS Status Post Cataract Surgery with Monofocal Intraocular Lens Implant Left Eye (11/10/2021) Reason Comments Knee Pain left knee pain Reason Comments 8 week post visit OA left knee with Gel One injection given Reason Comments Pseudophakia Both Eyes Reason Comments Knee Pain Right; cortisone inj ection Reason Onset Date Comments Appointment Request 09/11/2022 Reason Comments mdck Reason Comments Memory Loss Specialty Diagnoses / Procedures Referred By Erika rose Referred To Contact Geriatric Medicine Diagnoses memory and mental issues Procedures geriatric assessment [place] [address] [phone] [address] Referral ID Status Reason Start Date Expiration Date V isits Requested Visits Authorized [id number] Pending Review 09/13/2022 03/12/2023 1 1 Reason Onset Date Comments Orders 11/28/2022 Reason Comments Floaters Both Eyes Patient denies flash es of light Both Eyes. Reason Comments Memory Loss Reason Comments Right Knee Pain 6 months post visit with R knee injection given Reason Comments 6 week post visit OA right knee Reason Comments Follow-up Rev labs and us Reason Comments Dizziness Patient to ED refere nce dizziness with nausea/vomiting. She has history of vertigo but states this is different. She also c/o feeling weak and sick. <item><item> Privacy Markings (unrecogniz ed section and content) Section Author: Chrissy Villalba PROHIBITION ON REDISCLOSURE OF CONFIDENTIAL INFORMATION This notice accompanies a disclosure of information concerning a client made to you with the consent of such client. Section Author: Chrissy Villalba PROHIBITION ON REDISCLOSURE OF CONFIDENTIAL INFORMATION This notice accompanies a disclosure of information concerning a client made to you with the consent of such client. Source Comments (unrecognize d section and content) In the event this informatio n is protected by the Federal Confidentiality of Alcohol and Drug Abuse Patient Records regulations: The Federal rules restrict any use of the information to criminally investigate or prosecute any alcohol or drug abuse patient.[facility] the event this information is protected by the Federal Confidentiality of Alcohol and Drug Abuse Patient Records regulations: The Federal rules restrict any use of the information to criminally investigate or prosecute any alcohol or drug abuse patient.[facility] the event this information is protected by the Federal Confidentiality of Alcohol and Drug Abuse Patient Records regulations: The Federal rules restrict any use of the information to criminally investigate or prosecute any alcohol or drug abuse patient.[facility] the event this information is protected by the Federal Confidentiality of Alcohol and Drug Abuse Patient Records regulations: The Federal rules restrict any use of the information to criminally investigate or prosecute any alcohol or drug abuse patient.[facility] the event this information is protected by the Federal Confidentiality of Alcohol and Drug Abuse Patient Records regulations: The Federal rules restrict any use of the information to criminally investigate or prosecute any alcohol or drug abuse patient.[facility] the event this information is protected by the Federal Confidentiality of Alcohol and Drug Abuse Patient Records regulations: The Federal rules restrict any use of the information to criminally investigate or prosecute any alcohol or drug abuse patient.[facility] the event this information is protected by the Federal Confidentiality of Alcohol and Drug Abuse Patient Records regulations: The Federal rules restrict any use of the information to criminally investigate or prosecute any alcohol or drug abuse patient.[facility] the event this information is protected by the Federal Confidentiality of Alcohol and Drug Abuse Patient Records regulations: The Federal rules restrict any use of the information to criminally investigate or prosecute any alcohol or drug abuse patient.[facility] the event this information is protected by the Federal Confidentiality of Alcohol and Drug Abuse Patient Records regulations: The Federal rules restrict any use of the information to criminally investigate or prosecute any alcohol or drug abuse patient.[facility] the event this information is protected by the Federal Confidentiality of Alcohol and Drug Abuse Patient Records regulations: The Federal rules restrict any use of the information to criminally investigate or prosecute any alcohol or drug abuse patient.[facility] the event this information is protected by the Federal Confidentiality of Alcohol and Drug Abuse Patient Records regulations: The Federal rules restrict any use of the information to criminally investigate or prosecute any alcohol or drug abuse patient.[facility] Hospital[facility] the event this information is protected by the Federal Confidentiality of Alcohol and Drug Abuse Patient Records regulations: The Federal rules restrict any use of the information to criminally investigate or prosecute any alcohol or drug abuse patient.[facility] the event this information is protected by the Federal Confidentiality of Alcohol and Drug Abuse Patient Records regulations: The Federal rules restrict any use of the information to criminally investigate or prosecute any alcohol or drug abuse patient.[facility] Hospital[facility] the event this information is protected by the Federal Confidentiality of Alcohol and Drug Abuse Patient Records regulations: The Federal rules restrict any use of the information to criminally investigate or prosecute any alcohol or drug abuse patient.[facility] Care Teams (unrecognized sec tion and content) Director Translational Relationship Specialty Start Date End Date Shahla Thayer MD [address] [place] [address] PCP - General Family Practice 06/22/21 Director Translational Relationship Specialty Start Date End Date Shahla Thayer MD [address] [place] [address] PCP - General Family Practice 06/22/21 Director Translational Relationship Specialty Start Date End Date Shahla Thayer MD [address] [facility] [place] [address] PCP - General Family Practice 06/22/21 Director Translational Relationship Specialty Start Date End Date Shahla Thayer MD [address] [facility] [address] PCP - General Family Practice 06/22/21 Director Translational Relationship Specialty Start Date End Date Shahla Thayer MD [address] [facility] [address] PCP - General Family Practice 06/22/21 Director Translational Relationship Specialty Start Date End Date Shahla Thayer MD [address] [facility] [address] PCP - General Family Practice 06/22/21 Director Translational Relationship Specialty Start Date End Date Shahla Thayer MD [address] [facility] [address] PCP - General Family Medicine 06/22/21 Director Translational Relationship Specialty Start Date End Date Shahla Thayer MD [address] [facility] [address] PCP - General Family Medicine 06/22/21 Director Translational Relationship Specialty Start Date End Date Shahla Thayer MD [address] [facility] [address] PCP - General Family Medicine 06/22/21 Director Translational Relationship Specialty Start Date End Date Pearl Salinas MD [address] [place] [address] PCP - General 11/26/15 Director Translational Relationship Specialty Start Date End Date Pearl Salinas MD [address] [place] [address] PCP - General 11/26/15 09/12/22 Shahla Thayer [address] [place] [phone] PCP - General Family Medicine 09/13/22 Director Translational Relationship Specialty Start Date End Date Shahla Thayer MD [address] [facility], [facility] [address] [place] [address] PCP - General 05/21/19 Shahla Thayer MD [address] [facility], [facility] [address] [place] [phone] PCP - MSSP ACO Attributed Provider 05/21/21 Director Translational Relationship Specialty Start Date End Date Shahla Thayer [address] [place] [phone] PCP - General Family Medicine 09/13/22 Director Translational Relationship Specialty Start Date End Date Shahla Thayer [address] [place] [phone] PCP - General Family Medicine 09/13/22 Director Translational Relationship Specialty Start Date End Date Shahla Thayer MD [address] [place] [phone] PCP - General Family Medicine 06/22/21 Director Translational Relationship Specialty Start Date End Date Shahla Thayer [address] [place] [phone] PCP - General Family Medicine 09/13/22 Director Translational Relationship Specialty Start Date End Date Shahla Thayer MD [address] [place] [address] PCP - General Family Medicine 06/22/21 Director Translational Relationship Specialty Start Date End Date Shahla Thayer MD [address] [facility] [phone] PCP - General Family Medicine 06/22/21 Director Translational Relationship Specialty Start Date End Date Shahla Thayer MD [address] [place] [phone] PCP - General Family Medicine 06/22/21 Director Translational Relationship Specialty Start Date End Date Shahla Thayer MD [address] [facility], [facility] [address] [place] [phone] PCP - General 05/21/19 Shahla Thayer MD [address] [facility], [facility] [address] [place] [phone] PCP - MSSP ACO Attributed Provider 05/21/21 Director Translational Relationship Specialty Start Date End Date Shahla Thayer MD [address] [facility], [address] [place] [phone] PCP - General 05/21/19 Shahla Thayer MD [address] [facility], [address] [place] [phone] PCP - MSSP ACO Attributed Provider 05/21/21 Scheduled Active and Recently Administ ered Medications (unrecognized section and content) FOR RECORDS PERTAINING TO PATIENTS WHO ARE OR HAVE BEEN ENROLLED IN A CHEMICAL DEPENDENCY/SUBSTANCEABUSE PROGRAM, SOME INFORMATION MAY BE OMITTED. This clinical summary was aggregated from multiple sources. Caution should be exercised in using it in the provision of clinical care. This summary normalizes information from multiple sources, and as a consequence, information in this document may materially change the coding, format and clinical context of patient data. In addition, data may be omitted in some cases. CLINICAL DECISIONS SHOULD BE BASED ON THE PRIMARY CLINICAL RECORDS. [facility]. provides no warranty or guarantee of the accuracy or completeness of information in this document.
[2023-06-14] MEDS: 0.9% Normal Saline (1000mL) 1,000 ML 1000 ML IV (11:10)
[2023-06-14] MEDS: Ondansetron 4 MG/2 ML Vial IV (11:10)
--- NOTE | 2023-06-14 11:19 | RAD_ITS ---
INDICATION: weakness EXAMINATION/TECHNIQUE: X-RAY - XR Chest 1 View COMPARISON: Prior study dated: 06/15/2019 FINDINGS: LINES/DEVICES: None. LUNGS: No consolidation, edema or effusion. No pneumothorax. MEDIASTINUM AND CARDIOVASCULAR STRUCTURES: Cardiac silhouette not enlarged. Central airways and mediastinal contour are unremarkable. BONES AND SOFT TISSUES: Unremarkable. RAD/Chest 1 View (Portable) IMPRESSION: No radiographic evidence of acute cardiopulmonary disease. Electronically Signed: Javier Almonte MD at 11:34 EST ,
[2023-06-14 11:25] LABS: AST(SGOT) 16 U/L (15-37); Alanine Aminotransfer ALT/SGPT 20 U/L (13-56); Albumin, Serum 3.4 g/dL (3.2-5.0); Alkaline Phosphatase 106 U/L (45-117); Anion Gap 6 (5-15); BUN 18 mg/dL (7-18); BUN/Creat Ratio 18.2 RATIO (10-20); Calcium,Total 9.6 mg/dL (8.5-10.1); Chloride 111 mmol/L (98-107); Creatinine, Serum 0.99 mg/dL (0.55-1.02); EST Glomerular Filtration Rate 57 mL/min (>60); Est Glom Filt Rate - Afr Amer 69 mL/min (>60); Estimated Creatinine Clearance 32.86 ml/min; Globulin 3.3 g/dL (2.2-4.2); Glucose 93 mg/dL (74-106); Lipase 77 U/L (13-75); Potassium 3.5 mmol/L (3.5-5.1); Protein, Total 6.7 g/dL (6.4-8.2); Sodium Level 143 mmol/L (136-145); Troponin-I HS 13 pg/mL (3.0-54.0)
--- NOTE | 2023-06-14 12:05 | CT_ITS ---
INDICATION: weakness EXAMINATION: CT BRAIN WITHOUT CONTRAST, CTA HEAD, AND CTA NECK TECHNIQUE: Noncontrast axial images were obtained of the brain. Subsequently, routine carotid CT angiogram protocol was performed without and with IV contrast. In addition, images were obtained of the [place]. NASCET criteria using the distal ICAs for comparison were used for evaluation of stenoses. 3D reconstructions were reviewed. A radiation dose optimization technique was used for this scan. IV Contrast dosage and agent: 75 cc of [id number] COMPARISON: MRI of the brain of 12/18/2022 FINDINGS: --CT BRAIN WITHOUT CONTRAST: BRAIN PARENCHYMA: No intra- or extra-axial hemorrhage. No evidence of acute infarct. No intracranial mass or mass effect. Moderate periventricular deep white matter changes likely due to microvascular disease. There is preservation of the ochoa/white matter interface. Posterior fossa structures are unremarkable. CSF SPACES: Appropriate for age. No hydrocephalus. Basal cisterns are patent. CALVARIUM, SKULL BASE, PARANASAL SINUSES AND MASTOID AIR CELLS: Clear. No discrete lytic or blastic abnormalities. --CTA NECK: AORTIC ARCH AND BRANCHES: Normal anatomy, patent. RIGHT CCA: Markedly tortuous proximal right common carotid artery. Eccentric atherosclerotic calcification near its origin without significant stenosis. RIGHT ICA: No occlusion, significant stenosis or dissection. RIGHT ECA: Unremarkable. LEFT CCA: Markedly tortuous proximal left common carotid artery without significant stenosis. LEFT ECA: Moderate stenosis at the origin of the left external carotid artery. LEFT ICA: Tortuous without significant stenosis or occlusion. RIGHT VERTEBRAL ARTERY: No occlusion, significant stenosis or dissection. LEFT VERTEBRAL ARTERY: No occlusion, significant stenosis or dissection. NECK SOFT TISSUES: Unremarkable. --CTA HEAD: --Anterior circulation: ICAs: Mild atherosclerotic calcifications of the cavernous internal carotid arteries without significant stenosis. 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 Unremarkable right A1 and bilateral A2 segments. ACOM: Present. MCAs: No significant stenosis at the visualized segments. --Posterior circulation: PCOMs: wax specialist: origin of the posterior cerebral arteries bilaterally without significant stenosis. BASILAR ARTERY: No significant stenosis. VERTEBRAL ARTERIES: No significant stenosis at the intradural/visualized segments. No evidence of intracranial aneurysm or vascular malformation. CT/CTA Head AND Neck W/ Contrast IMPRESSION: 1. No acute intracranial process. 2. Chronic involutional changes of the brain. 3. 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 Otherwise no intracranial great vessel stenosis is seen. 3. Tortuous proximal common carotid arteries without significant stenosis. 4. Unremarkable internal carotid arteries bilaterally. 5. Patent bilateral vertebral arteries without significant stenosis. 6. Moderate stenosis at the origin of the left external carotid artery. Electronically Signed: Javier Almonte MD at 13:11 EST ,
[2023-06-14 12:32] LABS: Bacteria 0 SEEN /hpf (None Seen); Mucous, Urine 0 SEEN /hpf (<or=2+); Red Blood Cells-Urine 0 SEEN /hpf (0-5); White Blood Cells 0 SEEN /hpf (0-5)
[2023-06-14 12:57] LABS: Color, Urine Straw (Yellow); Glucose, Dipstick Normal (Normal); Ketone-Dipstick Negative (Negative); Leukocyte Esterase-Dipstick Negative /ul (Negative); Nitrite-Dipstick Negative (Negative); Occult Blood-Urine Negative /ul (Negative); Protein-Dipstick Negative (Negative); Specific Gravity, Urine 1.005 (1.002-1.030); Urine Bilirubin Dipstick Negative (Negative); Urine Clarity Clear (Clear); Urine Urobilinogen Normal (Normal)
[2023-06-14 13:06] LABS: Squamous Epithelial Cells - UA 0-5 SEEN /hpf (5-10)
--- NOTE | 2023-06-14 13:54 | CM.ED ---
Social Work SW consulted for home health resources. SW introduced self and role to patient and daughter. Daughter Laura present in the room. Pt has difficulty answering questions asked and discusses unrelated topics. Daughter assists with information as needed. Pt reports 3 daughters that help her. Daughter reports they all live in a row and assist their mother with needs and she almost always has someone with her. SW discussed HHC and provided list of providers and private duty list. Daughter reports upcoming PCP appt. and SW directed them to speak with physician about pt needs and HHC order. Pt requests a pull-up and SW provided an adult diaper to patient's daughter. Daughter denies need for nursing assistance and denies further SW needs. Lluvia Nguyen MANAGER SUBWAY, SPRAY WORKER
[2023-06-14 14:34] VITALS: PULSE 84; RESP 20
== END 2023-06-14 14:34 | disposition home or self-care (01) ==
PROVIDERS: Emergency Provider Emergency Medicine; PCP Family Medicine; Visit Provider Emergency Medicine
DX: R53.1 Weakness (principal); Z86.73 Personal history of transient ischemic attack (TIA), and cerebral infarction without residual deficits
CPT/HCPCS: 70496; 70498; 71045; 80053; 81001; 83690; 84484; 85025; 87631; 93005; 96361; 96374; 99283; J7030; Q9967; A4216; J2405